=== PATIENT | male | born 1935 | race Caucasian/White ===

== ENCOUNTER 2017-11-25 16:46 | Inpatient (IN) | payer OTHER ==
[2017-11-25] MEDS ORDERED: SODIUM CHLORIDE 1,000 ML IV STA (17:05)
[2017-11-25] MEDS ORDERED: ACETAMINOPHEN 1000 MG/100 ML VIAL (NON FORMULARY) IVPB ONE (17:06)
[2017-11-25] MEDS ORDERED: PIPERACILLIN/TAZOB 4.5 GM/100 ML PRE-DOCKED IVPB ONE (17:20)
[2017-11-25] MEDS ORDERED: VANCOMYCIN 1,000 MG in DEXTROSE 5%-WATER - 250 ML IVPB ONE (17:20)
[2017-11-25] MEDS ORDERED: SODIUM CHLORIDE 500 ML IV STA (17:22)
[2017-11-25 17:40] LABS: BASO % 0.3 % (0-2.0); EOS % 0.4 % (0-4.5); HEMATOCRIT 25.2 % (35.4-49); HEMOGLOBIN 8.5 GM/dL (11.7-16.9); LYMPH % 10.8 % (8-40); MCHC 33.5 g/dl (32.0-35.9); MEAN CELL VOLUME 95.6 fl (80-96); MEAN PLT VOLUME 8.9 fl (7.5-11.1); MONO % 4.8 % (3.8-10.2); NEUT % 83.7 % (42.8-82.8); PLATELET COUNT 173 K/MM3 (134-434); RBC 2.64 M/mm3 (4.00-5.60); RDW 16.1 % (11.9-15.9); WHITE BLOOD COUNT 8.2 K/mm3 (4.0-10.0)
[2017-11-25] MEDS ORDERED: ACETAMINOPHEN INJECTION 100 ML IVPB ONE (17:45)
[2017-11-25] MEDS ORDERED: VANCOMYCIN 1 GRAM (PRE-DOCKED) 1,000 MG/250 ML BAG IVPB ONE (17:46)
--- NOTE | 2017-11-25 17:47 | PDOC ---
History of Present Illness - General Chief Complaint: SIRS, Suspected/Possible Stated Complaint: SEPSIS Time Seen by Provider: 11/25/17 17:01 History Source: Patient Exam Limitations: Clinical Condition, Dementia - History of Present Illness Initial Comments: 11/25/17 17:42 Patient is an 82M with history of dementia, HTN, HLD and BPH arriving from [facility] here today complaining of fever. Patient was recorded to have a fever of 103 degrees. He has a history of dementia with unknown baseline. At this moment , I am unable to obtain a history from him as he is simply repeating whatever I say. He did respond that his stomach hurt at one point, but I am unsure if this was a meaningful response. Past History - Past Medical History Allergies/Adverse Reactions: Allergies Allergy/AdvReac Type Severity Reaction Status Date / Time apricot Allergy Unknown Verified 11/25/17 16:53 peach Allergy Unknown Verified 11/25/17 16:53 phenobarbital Allergy Unknown Verified 11/25/17 16:53 NECTARINE TREE Allergy Unknown Uncoded 11/25/17 16:53 SUMME FRUITS Allergy Unknown Uncoded 11/25/17 16:53 COPD: No Dementia: Yes HTN: Yes Hypercholesterolemia: Yes - Suicide/Smoking/Psychosocial Hx Smoking History: Never smoked Hx Alcohol Use: No Drug/Substance Use Hx: No Substance Use Type: None Review of Systems - Review of Systems Able to Perform ROS?: No (2/2 clinical condition) *Physical Exam - Vital Signs Last Vital Signs Temp Pulse Resp BP Pulse Ox 94 H 22 196/100 98 11/25/17 16:48 11/25/17 16:48 11/25/17 16:48 11/25/17 16:48 - Physical Exam Comments: 11/25/17 17:47 GENERAL: Awake, alert, and fully oriented, difficult to redirect, confused, but still able to say name, year, location. Not able to form complaint HEAD: No signs of trauma, normocephalic, atraumatic EYES: PERRLA, EOMI, sclera anicteric, conjunctiva clear ENT: Auricles normal inspection, hearing grossly normal, nares patent, oropharynx clear without exudates. Dry mucosa NECK: Normal ROM, supple, no lymphadenopathy, JVD, or masses LUNGS: No distress, speaks full sentences, coarse breath sounds in left lung stewart HEART: Regular rate and rhythm, normal S1 and S2, no murmurs, rubs or gallops, peripheral pulses normal and equal bilaterally. ABDOMEN: Soft, nontender, normoactive bowel sounds. No guarding, no rebound. No masses EXTREMITIES: Normal inspection, Normal range of motion, no edema. No clubbing or cyanosis. NEUROLOGICAL: Cranial nerves II through XII grossly intact. Moves all extremities SKIN: Warm, Dry, normal turgor, no rashes or lesions noted. ED Treatment Course - LABORATORY CBC & Chemistry Diagram: 11/25/17 17:24 11/25/17 17:24 - ADDITIONAL ORDERS Additional order review: 11/25/17 17:24 RBC 2.64 L MCV 95.6 MCHC 33.5 RDW 16.1 H MPV 8.9 Neutrophils % 83.7 H Lymphocytes % 10.8 Monocytes % 4.8 Eosinophils % 0.4 Basophils % 0.3 - RADIOLOGY Radiology Studies Ordered: Category Date Time Status CHEST X-RAY PORTABLE* [RAD] Stat Radiology 11/25/17 17:05 Taken Medical Decision Making - Medical Decision Making 11/25/17 18:41 82M with history of dementia, HTN, HLD, and BPH here today with fever. Patient not tachycardic but on beta alen. Believe patient is septic, no obvious source at this time. Will initiate broad workup with septic order set. If no source of infection found will scan abdomen. Patient appears dry. Will treat empirically with 20cc/kg of fluid, vanc, zosyn. Unable to pass straight cath, bedside bladder scanner showed 160cc of fluid. Attempted insertion of straight cath resulted in multiple blood clots, coude placed, urine drained and coude removed. 11/25/17 18:49 Laboratory Tests 11/25/17 11/25/17 11/25/17 17:24 17:24 17:24 WBC 8.2 Hgb 8.5 L Hct 25.2 L Plt Count 173 VBG pH Sodium 146 H Chloride 113 H BUN 52 H Creatinine 1.8 H Creat Clearance w eGFR 36.13 Random Glucose 210 H Stool Occult Blood Negative 11/25/17 17:56 WBC Hgb Hct Plt Count VBG pH 7.44 H Sodium Chloride BUN Creatinine Creat Clearance w eGFR Random Glucose Stool Occult Blood CBC shows anemia, unknown baseline. CMP shows signs of dehydration. VBG shows no acidosis. 11/25/17 19:03 Trop detectable at 0.11. Suspect demand ischemia. CXR shows possible right middle lobe pneumonia. Signed out to Dr Whaley. Pending UA and official CXR read. *DC/Admit/Observation/Transfer Diagnosis at time of Disposition: Fever - Discharge Dispostion Condition at time of disposition: Stable - Referrals Referrals: Kassandra Urias [Primary Care Provider] - - Patient Instructions - Post Discharge Activity
[2017-11-25 17:55] LABS: INR 1.03 (0.82-1.09); PROTHROMBIN TIME (PATIENT) 11.6 SEC (9.98-11.88)
[2017-11-25 17:58] LABS: ACTIVATED PTT 31.1 SECONDS (26.9-34.4)
[2017-11-25 18:11] LABS: ALBUMIN 2.9 g/dl (3.4-5.0); ANION GAP 12 (8-16); BILIRUBIN,TOTAL 0.3 mg/dL (0.2-1.0); BLOOD UREA NITROGEN 52 mg/dL (7-18); CALCIUM 7.7 mg/dL (8.5-10.1); CHLORIDE 113 mmol/L (98-107); CO2 21 mmol/L (21-32); CREATININE 1.8 mg/dL (0.7-1.3); GLUCOSE,RANDOM 210 mg/dL (74-106); POTASSIUM 3.6 mmol/L (3.5-5.1); SGOT/AST 65 U/L (15-37); SGPT/ALT 32 U/L (12-78); SODIUM 146 mmol/L (136-145); TOT PROT 5.5 g/dl (6.4-8.2)
[2017-11-25 18:12] LABS: ALK PHOS 70 U/L (45-117)
[2017-11-25 18:33] LABS: VENOUS PC02 31.3 mmHg (38-52); VENOUS PH 7.44 (7.32-7.42); VENOUS PO2 36.6 mmHg (28-48)
--- NOTE | 2017-11-25 18:47 | PDOC ---
Attending Attestation - Resident Resident Name: Jared Lai - ED Attending Attestation I have performed the following: I have examined & evaluated the patient, The case was reviewed & discussed with the resident, I agree w/resident's findings & plan, Exceptions are as noted - HPI HPI: 11/25/17 18:43 Mr Artis Is an 82-year-old male with a history of dementia, hypertension, ? BPH. He presents emergency department from [facility] due to high fever. Patient is largely unable to give us a history. Per report of the facility: No diarrhea, ? abdominal pain, no vomiting - Physicial Exam PE: 11/25/17 18:44 GENERAL: The patient is rigoring, flushed cheeks. HEAD: Normal EYES: PERRLA, EOMI, sclera anicteric, conjunctiva clear. ENT: Ears normal, nares patent, oropharynx clear without exudates. Moist mucous membranes. NECK: Normal range of motion, supple without lymphadenopathy, JVD, or masses. LUNGS: Breath sounds equal, clear to auscultation bilaterally. No wheezes, and no crackles. HEART: Regular rate and rhythm, normal S1 and S2 without murmur ABDOMEN: Soft, nontender : testicular erythema, pt in a wet diaper EXTREMITIES: Normal range of motion, no edema NEUROLOGICAL: Pt is confused, moves all extremities SKIN: Warm, Dry, normal turgor, no rashes or lesions noted. - Medical Decision Making 11/25/17 18:45 82-year-old male presented to emergency department with an episode of high fever. Patient is septic. Source is unknown at this point. There is no cough. No abdominal tenderness. Different diagnosis: Urinary tract infection, pneumonia, intra-abdominal pathology, cellulitis? Will do: Labs Chest x-ray Lactic acid IV fluids Antipyretics Consider CT of the abdomen and pelvis
[2017-11-25 18:59] LABS: URINE APPEARANCE CLOUDY; URINE BILIRUBIN NEGATIVE (NEGATIVE); URINE BLOOD 3+ (NEGATIVE); URINE COLOR RED; URINE GLUCOSE (UA) 1+ (NEGATIVE); URINE KETONE NEGATIVE (NEGATIVE); URINE LEUK ESTERASE NEGATIVE (NEGATIVE); URINE NITRITE NEGATIVE (NEGATIVE); URINE UROBILINOGEN NEGATIVE mg/dL (0.2-1.0)
[2017-11-25 19:00] LABS: URINE PROTEIN 2+ (NEGATIVE)
--- NOTE | 2017-11-25 19:02 | PDOC ---
*Physical Exam - Vital Signs Last Vital Signs Temp Pulse Resp BP Pulse Ox 103.8 F H 95 H 22 159/66 98 11/25/17 17:12 11/25/17 17:12 11/25/17 17:12 11/25/17 17:12 11/25/17 17:12 - Physical Exam Comments: 11/25/17 19:21 General Appearance: Nourished. No Apparent Distress HEENT: No Pharyngeal Erythema, Tonsillar Exudate, Tonsillar Erythema Neck: No Cervical Lymphadenopathy Respiratory/Chest: Lungs Clear, Bilateral Expiratory Wheezing Auscultated on exam. No Crackles, Rales, Rhonchi, Cardiovascular: Regular Rhythm, Regular Rate. No JVD, Murmur, Gallops, Rubs Gastrointestinal/Abdominal: Normal Bowel Sounds, Soft. No Guarding, Rebound, Tenderness Musculoskeletal: No CVA Tenderness Extremity: Normal Capillary Refill Integumentary: Normal Color, Dry, Warm Neurologic: Fully Oriented, Alert, Normal Mood/Affect, Normal Response, ED Treatment Course - LABORATORY CBC & Chemistry Diagram: 11/25/17 17:24 11/25/17 17:24 - ADDITIONAL ORDERS Additional order review: Laboratory Results 11/25/17 11/25/17 11/25/17 18:32 17:56 17:24 PT with INR INR PTT (Actin FS) VBG pH 7.44 H POC VBG pCO2 31.3 L POC VBG pO2 36.6 Mixed VBG HCO3 21.1 Sodium Potassium Chloride Carbon Dioxide Anion Gap BUN Creatinine Creat Clearance w eGFR Random Glucose Lactic Acid Calcium Total Bilirubin AST ALT Alkaline Phosphatase Troponin I Total Protein Albumin Urine Color Red Urine Appearance Cloudy Urine pH 6.0 Ur Specific Freedom 1.014 Urine Protein 2+ H Urine Glucose (UA) 1+ H Urine Ketones Negative Urine Blood 3+ H Urine Nitrite Negative Urine Bilirubin Negative Urine Urobilinogen Negative Ur Leukocyte Esterase Negative Stool Occult Blood Negative 11/25/17 11/25/17 11/25/17 17:24 17:24 17:24 PT with INR INR PTT (Actin FS) VBG pH POC VBG pCO2 POC VBG pO2 Mixed VBG HCO3 Sodium 146 H Potassium 3.6 Chloride 113 H Carbon Dioxide 21 Anion Gap 12 BUN 52 H Creatinine 1.8 H Creat Clearance w eGFR 36.13 Random Glucose 210 H Lactic Acid 1.7 Calcium 7.7 L Total Bilirubin 0.3 AST 65 H ALT 32 Alkaline Phosphatase 70 Troponin I 0.11 H Total Protein 5.5 L Albumin 2.9 L Urine Color Urine Appearance Urine pH Ur Specific Freedom Urine Protein Urine Glucose (UA) Urine Ketones Urine Blood Urine Nitrite Urine Bilirubin Urine Urobilinogen Ur Leukocyte Esterase Stool Occult Blood 11/25/17 17:24 PT with INR 11.60 INR 1.03 PTT (Actin FS) 31.1 VBG pH POC VBG pCO2 POC VBG pO2 Mixed VBG HCO3 Sodium Potassium Chloride Carbon Dioxide Anion Gap BUN Creatinine Creat Clearance w eGFR Random Glucose Lactic Acid Calcium Total Bilirubin AST ALT Alkaline Phosphatase Troponin I Total Protein Albumin Urine Color Urine Appearance Urine pH Ur Specific Freedom Urine Protein Urine Glucose (UA) Urine Ketones Urine Blood Urine Nitrite Urine Bilirubin Urine Urobilinogen Ur Leukocyte Esterase Stool Occult Blood 11/25/17 17:24 RBC 2.64 L MCV 95.6 MCHC 33.5 RDW 16.1 H MPV 8.9 Neutrophils % 83.7 H Lymphocytes % 10.8 Monocytes % 4.8 Eosinophils % 0.4 Basophils % 0.3 - Medications Given in the ED: ED Medications Discontinued Medications Generic Name Dose Route Start Last Admin Trade Name Freq PRN Reason Stop Dose Admin Acetaminophen 1,000 mg 11/25/17 17:06 11/25/17 17:54 Ofirmev Injection - IVPB 11/25/17 17:07 1,000 mg ONCE ONE Administration Sodium Chloride 1,000 mls @ 1,000 mls/hr 11/25/17 17:05 11/25/17 17:54 Normal Saline - IV 11/25/17 18:04 1,000 mls/hr ASDIR STA Administration Sodium Chloride 500 mls @ 500 mls/hr 11/25/17 17:22 11/25/17 18:10 Normal Saline - IV 11/25/17 18:21 500 mls/hr ASDIR STA Administration 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 - 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: The patient 82 year old male who presents from [facility] for evaluation of fever. The patient was initially worked up as a septic work up and received Vanc and Zosyn. There appears to be a possible right middle lobe infiltrate on chest plain film as preliminarily read by ER physician. The patient is pending admission. Medical Decision Making - Medical Decision Making 11/25/17 19:24 We discussed the case with Dr. Medrano who accepted the patient for admission. Given the patient's high fever and lab results, we will start the patient on Tamiflu here in the ED. *DC/Admit/Observation/Transfer Diagnosis at time of Disposition: Fever Qualifiers: Fever type: unspecified Qualified Code(s): R50.9 - Fever, unspecified - Discharge Dispostion Condition at time of disposition: Stable Admit: Yes - Referrals Referrals: Kassandra Urias [Primary Care Provider] - - Patient Instructions - Post Discharge Activity
[2017-11-25 19:03] LABS: URINE BACTERIA RARE /hpf (NONE SEEN)
[2017-11-25] MEDS ORDERED: OSELTAMIVIR PHOSPHATE 75 MG CAPSULE PO ONE (19:14)
[2017-11-25] MEDS ORDERED: OSELTAMIVIR PHOSPHATE 30 MG CAPSULE PO ONE (19:15)
[2017-11-25] MEDS ORDERED: ACETAMINOPHEN 325 MG TABLET (FP) PO PRN (19:27)
[2017-11-25] MEDS ORDERED: ALBUTEROL SO4 2.5/IPRATROPIUM 0.5 INH SOL 3 ML VIAL.NEB. NEB PRN (19:28)
--- NOTE | 2017-11-25 19:36 | HP ---
Admitting History and Physical - Admission Chief Complaint: fever History of Present Illness: Patient is an 82M with history of dementia, HTN, HLD and BPH sent from [facility] due to 2 days of fever, today to 103. Per staff at [facility] ++ moist cough and more withdrawn. Patient has hx of dementia and is unreliable historian, and unable to provide any hx or complaint. 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: Dementia - Smoking History Smoking history: Never smoked - Alcohol/Substance Use Hx Alcohol Use: No - Social History Usual Living Arrangement: Yes: Assisted Living ADL: Support Services History of Recent Travel: No Home Medications - Allergies Allergies/Adverse Reactions: Allergies Allergy/AdvReac Type Severity Reaction Status Date / Time apricot Allergy Unknown Verified 11/25/17 16:53 peach Allergy Unknown Verified 11/25/17 16:53 phenobarbital Allergy Unknown Verified 11/25/17 16:53 NECTARINE TREE Allergy Unknown Uncoded 11/25/17 16:53 SUMME FRUITS Allergy Unknown Uncoded 11/25/17 16:53 Review of Systems - Review of Systems Constitutional: reports: Chills, Fever, Lethargy, Loss of Appetite, Weakness. denies: Unintentional Wgt. Loss Eyes: reports: No Symptoms HENT: reports: Difficult Swallowing Cardiovascular: denies: Chest Pain, Edema, Palpitations Respiratory: reports: Cough, SOB Gastrointestinal: reports: Abdominal Pain (at one point c/o abd pain but inconsistent) Breasts: reports: No Symptoms Reported Musculoskeletal: reports: No Symptoms Neurological: reports: Pre-Existing Deficit Physical Examination Vital Signs: Vital Signs Temperature 103.8 F H 11/25/17 17:12 Pulse Rate 95 H 11/25/17 17:12 Respiratory Rate 22 11/25/17 17:12 Blood Pressure 159/66 11/25/17 17:12 O2 Sat by Pulse Oximetry (%) 98 11/25/17 17:12 Findings/Remarks: lethargic Labs: CBC, BMP 11/25/17 17:24 11/25/17 17:24 Problem List - Problems (1) Acute tracheobronchitis Assessment/Plan: cover for influenza cover for HAP request ID Code(s): J20.9 - ACUTE BRONCHITIS, UNSPECIFIED (2) Dementia Code(s): F03.90 - UNSPECIFIED DEMENTIA WITHOUT BEHAVIORAL DISTURBANCE (3) HTN (hypertension) Code(s): I10 - ESSENTIAL (PRIMARY) HYPERTENSION (4) HLD (hyperlipidemia) Code(s): E78.5 - HYPERLIPIDEMIA, UNSPECIFIED (5) BPH (benign prostatic hyperplasia) Code(s): N40.0 - BENIGN PROSTATIC HYPERPLASIA WITHOUT LOWER URINRY TRACT SYMP (6) CKD (chronic kidney disease) stage 3, GFR 30-59 ml/min Code(s): N18.3 - CHRONIC KIDNEY DISEASE, STAGE 3 (MODERATE)
[2017-11-25] MEDS ORDERED: PIPERACILLIN/TAZOB 4.5 GM 4.5 GM/100 ML BAG IVPB ONE (19:37)
[2017-11-25] MEDS: DEXTROSE 5%-0.45% SALINE 1,000 ML IV SCH (19:42)
[2017-11-25] MEDS ORDERED: IBUPROFEN 800 MG/8 ML IJ IVPB ONE ×2 (20:06→20:07)
[2017-11-25] MEDS: ALBUTEROL SO4 2.5/IPRATROPIUM 0.5 INH SOL 3 ML VIAL.NEB. NEB SCH (20:33)
[2017-11-25] MEDS: DOCUSATE SODIUM 100 MG CAPSULE (FP) PO SCH (23:04)
[2017-11-25] MEDS: OSELTAMIVIR PHOSPHATE 30 MG CAPSULE PO SCH (23:05)
[2017-11-25 23:17] VITALS: BMI 25.0
[2017-11-26] MEDS ORDERED: FUROSEMIDE 40 MG/4 ML INJECTABLE VIAL IVPUSH ONE (01:43)
[2017-11-26] MEDS ORDERED: morphine SULFATE 4 MG/ML VIAL IVPUSH ONE (01:44)
[2017-11-26] MEDS ORDERED: morphine SULFATE 4 MG/ML VIAL ONE (01:45)
[2017-11-26] MEDS ORDERED: FUROSEMIDE 40 MG/4 ML INJECTABLE VIAL ONE (01:46)
[2017-11-26 02:12] LABS: ARTERIAL BLD GAS O2 SATURATION 92.9 % (90-98.9); ARTERIAL BLOOD GAS PCO2 43.2 mmHg (35-45); ARTERIAL BLOOD GAS PO2 81.1 mmHg (68-100); ARTERIAL BLOOD GAS pH 7.27 (7.35-7.45)
[2017-11-26 02:22] LABS: ALLENS TEST POSITIVE
[2017-11-26] MEDS ORDERED: METOPROLOL TARTRATE 5 MG/5 ML VIAL IVPUSH ONE ×2 (03:23→04:45)
[2017-11-26] MEDS ORDERED: METOPROLOL TARTRATE 5 MG/5 ML VIAL ONE (03:36)
[2017-11-26] MEDS ORDERED: dilTIAZem HCL 50 MG/10 ML - 10 ML VIAL IVPUSH ONE (05:11)
[2017-11-26] MEDS ORDERED: ACETAMINOPHEN 1000 MG/100 ML VIAL (NON FORMULARY) IVPB ONE (05:23)
--- NOTE | 2017-11-26 06:25 | RAPID ---
Physical Examination Vital Signs: Vital Signs Temperature 99.2 F 11/26/17 05:34 Pulse Rate 142 H 11/26/17 05:34 Respiratory Rate 22 11/26/17 05:34 Blood Pressure 158/77 11/26/17 05:34 O2 Sat by Pulse Oximetry (%) 95 11/26/17 02:15 Constitutional: Yes: Moderate Distress (lethargic), Other HENT: Yes: WNL Neck: Yes: Supple Cardiovascular: Yes: Pulse Irregular Respiratory: Yes: Cough, Poor Air Entry Neurological: Yes: Confusion, Lethargy Labs: CBC, BMP 11/25/17 17:24 11/25/17 17:24 Rapid Response - Rapid Response Assessment: Rapid response called as pt desat to 78-79 while on 4L NC 02. At time, BP holding with rapid HR in 130-140s. HOB elevated, pt started on non-rebreather. Pt given morphine 2mg x 1, lasix 40mg IVP x 1. Chest PT performed. After, pt sat increased to 93-94. Respiratory at bedside, with BiPAP ordered for standby. stat EKG reveals afib with RVR, rate ~150. Pt transferred to telemetry for close monitoring. Not candidate for ICU as DNR/DNI, relatively hemodynamically stable Will continue to follow Thank you Anayeli Ariza MD PGY-1 Night team
[2017-11-26 07:04] LABS: HEMATOCRIT 26.7 % (35.4-49); HEMOGLOBIN 8.9 GM/dL (11.7-16.9); MCH 31.7 pg (25.7-33.7); MCHC 33.1 g/dl (32.0-35.9); MEAN CELL VOLUME 95.6 fl (80-96); MEAN PLT VOLUME 8.9 fl (7.5-11.1); PLATELET COUNT 152 K/MM3 (134-434); RDW 16.5 % (11.9-15.9); WHITE BLOOD COUNT 4.5 K/mm3 (4.0-10.0)
[2017-11-26 07:06] LABS: ANION GAP 14 (8-16); BLOOD UREA NITROGEN 46 mg/dL (7-18); CALCIUM 7.6 mg/dL (8.5-10.1); CHLORIDE 113 mmol/L (98-107); CO2 22 mmol/L (21-32); GLUCOSE,RANDOM 203 mg/dL (74-106); SODIUM 149 mmol/L (136-145)
[2017-11-26] MEDS: ALBUTEROL SO4 2.5/IPRATROPIUM 0.5 INH SOL 3 ML VIAL.NEB. NEB SCH ×4 (07:20→20:32)
--- NOTE | 2017-11-26 09:01 | PN ---
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, Physician Chief Complaint: ID Full note dictated Poorly responsive tachypneic - Current Medication List Current Medications: Active Medications Acetaminophen (Tylenol -) 650 mg PO Q4H PRN PRN Reason: fever Albuterol/Ipratropium (Duoneb -) 1 amp NEB RQID [facility] Last Admin: 11/26/17 07:20 Dose: 1 amp Albuterol/Ipratropium (Duoneb -) 1 amp NEB Q4H PRN PRN Reason: SHORTNESS OF BREATH Last Admin: 11/26/17 02:16 Dose: 1 amp Docusate Sodium (Colace -) 100 mg PO BID [facility] Last Admin: 11/25/17 23:04 Dose: Not Given Dextrose/Sodium Chloride (D5-1/2ns -) 1,000 mls @ 125 mls/hr IV ASDIR [facility] Last Admin: 11/25/17 19:42 Dose: 125 mls/hr Oseltamivir Phosphate (Tamiflu -) 30 mg PO BID [facility] Stop: 11/30/17 21:59 Last Admin: 11/25/17 23:05 Dose: Not Given Polyethylene Glycol (Miralax (For Daily Use) -) 17 gm PO DAILY [facility] - Objective Vital Signs: Vital Signs Temperature 99.2 F 11/26/17 05:34 Pulse Rate 142 H 11/26/17 05:34 Respiratory Rate 22 11/26/17 05:34 Blood Pressure 158/77 11/26/17 05:34 O2 Sat by Pulse Oximetry (%) 95 11/26/17 02:15 Constitutional: Yes: Moderate Distress Cardiovascular: Yes: Tachycardia, S1, S2. No: Murmur Respiratory: Yes: WNL, Regular, CTA Bilaterally Gastrointestinal: Yes: Soft. No: Tenderness, Tenderness, Epigastrium Edema: Yes Labs: CBC, BMP 11/26/17 05:35 11/26/17 05:35 INR, PTT INR 1.03 (0.82-1.09) 11/25/17 17:24 Problem List - Problems (1) Influenza Code(s): J11.1 - FLU DUE TO UNIDENTIFIED INFLUENZA VIRUS W OTH RESP MANIFEST (2) Acute respiratory failure Code(s): J96.00 - ACUTE RESPIRATORY FAILURE, UNSP W HYPOXIA OR HYPERCAPNIA (3) Pneumonia Code(s): J18.9 - PNEUMONIA, UNSPECIFIED ORGANISM Assessment/Plan Laboratory Tests 11/25/17 11/25/17 11/26/17 17:24 18:32 01:55 WBC Hgb Hct Plt Count INR 1.03 ABG pH 7.27 L ABG pO2 at Pt Temp 81.1 Oxygen Flow Rate 100% BUN Creatinine Urine RBC (Auto) 4300 11/26/17 11/26/17 05:35 05:35 WBC 4.5 D Hgb 8.9 L Hct 26.7 L Plt Count 152 INR ABG pH ABG pO2 at Pt Temp Oxygen Flow Rate BUN 46 H Creatinine 2.0 H Urine RBC (Auto) Assessment Suspect influenza Pneumonia possible Hematuria traumatic Sepsis syndrome secondary influenza Plan Cultures Influenza screen Repeat chest xray Ceftriaxone Patrick RINALDI
--- NOTE | 2017-11-26 09:40 | CONS ---
INFECTIOUS DISEASE CONSULTATION DATE OF CONSULTATION: DATE OF DICTATION: 11/26/2017 HISTORY OF PRESENT ILLNESS: This is an 82-year-old male with a history of dementia, sent from the residential healthcare facility with a 2-day history of fever to 103. Apparently, several cases of influenza have been documented from the same facility including another patient who was admitted earlier last night. The patient was noted to be in acute respiratory distress and placed on a BiPAP mask. I am asked to see him regarding antibiotic treatment. At the current time, he is poorly responsive and only opens his eyes minimally to verbal stimuli. PAST MEDICAL HISTORY: Includes BPH, hypertension, dementia. CURRENT MEDICATIONS: DuoNeb, intravenous fluids, and Tamiflu. ALLERGIES: PHENOBARBITAL. SOCIAL HISTORY: Unobtainable. FAMILY HISTORY: Unobtainable. REVIEW OF SYSTEMS: Respiratory: Shortness of breath on a BiPAP mask. Recent cough noted. Cardiac: No history of chest pain, palpitations, syncope. Gastrointestinal: No abdominal pain, nausea, vomiting, diarrhea. Genitourinary: History of BPH. Hematuria noted on the admitting urinalysis. PHYSICAL EXAMINATION: General: Revealed an elderly male in respiratory distress. Vital Signs: Temperature maximum 103.8, currently 99.2. Pulse 142, blood pressure 158/77, respirations 20. Lungs: With diminished breath sounds, clear anteriorly. Heart: S1, S2. Tachycardic. Abdomen: Soft, nontender, without organomegaly. Extremities: With trace peripheral edema. DIAGNOSTIC DATA: Urinalysis with 4300 red cells. White count 4.5, hemoglobin 8.9, platelets of 152. ABG showed 7.27, 43, 81 on 100% oxygen. BUN 52, creatinine 1.3. Liver enzymes within normal limit. Troponin 0.29. Chest x-ray shows possible lower lobe infiltrate. ASSESSMENT: Suspected influenza. Blood cultures negative this morning. We will treat for a possible superinfection in the lung for pneumococcus, Staphylococcus aureus with ceftriaxone 2 g daily. Continue oseltamivir. Droplet precautions. Influenza screening. ALTAF LANG M.D. XAVIER/[id number]
--- NOTE | 2017-11-26 10:05 | PN ---
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 (short form) - Note 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: 82 y/o male admitted for fever x 2 days/cough. Pt found lying in bed with Bipap mask in place. Pt did not respond to questions but slightly opened eyes. Vital Signs Period Temp Pulse Resp BP Sys/Cannon Pulse Ox Last 24 Hr 99.2 F-103.8 F 11-142 20-26 125-196/57-100 94-98 CBC, BMP 11/26/17 05:35 11/26/17 05:35 HEENT- Normocephalic Neck-Supple Lungs- CTAB Heart- S1/S2 Abd- pos BS, soft, NT Ext- No LE edema Active Medications Acetaminophen (Tylenol -) 650 mg PO Q4H PRN PRN Reason: fever Albuterol/Ipratropium (Duoneb -) 1 amp NEB RQID [facility] Last Admin: 11/26/17 07:20 Dose: 1 amp Albuterol/Ipratropium (Duoneb -) 1 amp NEB Q4H PRN PRN Reason: SHORTNESS OF BREATH Last Admin: 11/26/17 02:16 Dose: 1 amp Docusate Sodium (Colace -) 100 mg PO BID [facility] Last Admin: 11/25/17 23:04 Dose: Not Given Dextrose/Sodium Chloride (D5-1/2ns -) 1,000 mls @ 125 mls/hr IV ASDIR [facility] Last Admin: 11/25/17 19:42 Dose: 125 mls/hr Ceftriaxone Sodium 2 gm/ (Dextrose) 100 mls @ 200 mls/hr IVPB DAILY [facility] Metoprolol Succinate (Toprol Xl -) 50 mg PO BID [facility] Oseltamivir Phosphate (Tamiflu -) 30 mg PO BID [facility] Stop: 11/30/17 21:59 Last Admin: 11/25/17 23:05 Dose: Not Given Polyethylene Glycol (Miralax (For Daily Use) -) 17 gm PO DAILY [facility] #Acute Tracheobronchitis Continue Ceftriaxone IVPB #Influenza Continue Tamiflu 30 mg BID # Acute/ Chronic Kidney Disease Continue IV fluids #HTN / Tachycardia Continue Metoprolol 50 mg BID Rate improving Problem List - Problems (1) Acute tracheobronchitis Assessment/Plan: cover for influenza cover for HAP request ID Code(s): J20.9 - ACUTE BRONCHITIS, UNSPECIFIED (2) Dementia Code(s): F03.90 - UNSPECIFIED DEMENTIA WITHOUT BEHAVIORAL DISTURBANCE (3) HTN (hypertension) Code(s): I10 - ESSENTIAL (PRIMARY) HYPERTENSION (4) HLD (hyperlipidemia) Code(s): E78.5 - HYPERLIPIDEMIA, UNSPECIFIED (5) BPH (benign prostatic hyperplasia) Code(s): N40.0 - BENIGN PROSTATIC HYPERPLASIA WITHOUT LOWER URINRY TRACT SYMP (6) CKD (chronic kidney disease) stage 3, GFR 30-59 ml/min Code(s): N18.3 - CHRONIC KIDNEY DISEASE, STAGE 3 (MODERATE)
[2017-11-26] MEDS ORDERED: PT OWN MED DRAWER 7, Y5N ONE ×3 (10:51→14:41)
[2017-11-26] MEDS: CEFTRIAXONE 2 GM in DEXTROSE 5%-WATER - 100 ML IVPB SCH (11:03)
[2017-11-26] MEDS: DOCUSATE SODIUM 100 MG CAPSULE (FP) PO SCH ×2 (11:03→21:30)
[2017-11-26] MEDS: OSELTAMIVIR PHOSPHATE 30 MG CAPSULE PO SCH ×2 (11:15→21:30)
[2017-11-26] MEDS: POLYETHYLENE GLYCOL 3350 119 GM BTL PO SCH (11:16)
--- NOTE | 2017-11-26 11:21 | CON.CARD ---
Cardiology Consult (text) - Consultation Consultation Note: cc: sent from [facility] for fever hpi: 82 m hx dementia, htn, hld, ckd sent from [facility] for fever. Pt with dementia , unable to give hx, hx from charts. Being treated for URI/flu. Overnight with new onset afib with rvr. pmh: per hpi psh: unknown social: no tob fam: unknown ros: unable to obtain 2/2 dementia meds: Home Medications Medication Instructions Recorded Amlodipine Besylate 5 mg PO 11/25/17 Ascorbic Acid [Vitamin C -] 500 mg PO DAILY 11/25/17 Atorvastatin Ca [Lipitor] 40 mg PO HS 11/25/17 Cholecalciferol (Vitamin D3) 50,000 unit PO DAILY 11/25/17 [Vitamin D3] Citalopram Hydrobromide 10 mg PO DAILY 11/25/17 [Citalopram HBr] Clonidine HCl 0.3 mg PO HS 11/25/17 Hydralazine HCl 25 mg PO TID 11/25/17 Losartan Potassium 50 mg PO DAILY 11/25/17 Metoprolol Succinate [Toprol Xl] 100 mg PO DAILY 11/25/17 Nystatin Powder [Nystop Topical 30 gm TP DAILY PRN 11/25/17 Powder -] Olanzapine 5 mg PO DAILY 11/25/17 Oseltamivir Phosphate 30 mg PO DAILY MDD 14 days 11/25/17 Polyethylene Glycol 3350 1,700 gm PO DAILY 11/25/17 [Laxaclear] Terazosin HCl 5 mg PO HS 11/25/17 pe: Vital Signs Period Temp Pulse Resp BP Sys/Cannon Pulse Ox Last 24 Hr 99.2 F-103.8 F 11-142 20-26 125-196/57-100 94-98 nad no jvd on bipap coarse bs bl, weak eff lethargic no jaundice diaphoresis pos dp pt abd nd pos bs rrr s1s2 no mrg no le e/c/c Laboratory Last Values WBC 4.5 K/mm3 (4.0-10.0) D 11/26/17 05:35 RBC 2.80 M/mm3 (4.00-5.60) L 11/26/17 05:35 Hgb 8.9 GM/dL (11.7-16.9) L 11/26/17 05:35 Hct 26.7 % (35.4-49) L 11/26/17 05:35 MCV 95.6 fl (80-96) 11/26/17 05:35 MCH 31.7 pg (25.7-33.7) 11/26/17 05:35 MCHC 33.1 g/dl (32.0-35.9) 11/26/17 05:35 RDW 16.5 % (11.9-15.9) H 11/26/17 05:35 Plt Count 152 K/MM3 (134-434) 11/26/17 05:35 MPV 8.9 fl (7.5-11.1) 11/26/17 05:35 Neutrophils % 83.7 % (42.8-82.8) H 11/25/17 17:24 Lymphocytes % 10.8 % (8-40) 11/25/17 17:24 Monocytes % 4.8 % (3.8-10.2) 11/25/17 17:24 Eosinophils % 0.4 % (0-4.5) 11/25/17 17:24 Basophils % 0.3 % (0-2.0) 11/25/17 17:24 PT with INR 11.60 SEC (9.98-11.88) 11/25/17 17:24 INR 1.03 (0.82-1.09) 11/25/17 17:24 PTT (Actin FS) 31.1 SECONDS (26.9-34.4) 11/25/17 17:24 Anticoagulation Therapy No Result Required. 11/26/17 01:55 Puncture Site Right radial 11/26/17 01:55 ABG pH 7.27 (7.35-7.45) L 11/26/17 01:55 ABG pCO2 at Pt Temp 43.2 mmHg (35-45) 11/26/17 01:55 ABG pO2 at Pt Temp 81.1 mmHg (68-100) 11/26/17 01:55 ABG HCO3 19.2 meq/L (22-26) L 11/26/17 01:55 ABG O2 Sat (Measured) 92.9 % (90-98.9) 11/26/17 01:55 ABG O2 Content 15.0 % vol (15-22) 11/26/17 01:55 ABG Base Excess -7.0 meq/l (-2-2) L 11/26/17 01:55 Shadi Test Positive 11/26/17 01:55 VBG pH 7.44 (7.32-7.42) H 11/25/17 17:56 POC VBG pCO2 31.3 mmHg (38-52) L 11/25/17 17:56 POC VBG pO2 36.6 mmHg (28-48) 11/25/17 17:56 Mixed VBG HCO3 21.1 meq/L (19-25) 11/25/17 17:56 O2 Delivery Device No Result Required. 11/26/17 01:55 Oxygen Flow Rate 100% 11/26/17 01:55 Vent Mode No Result Required. 11/26/17 01:55 Vent Rate No Result Required. 11/26/17 01:55 Mechanical Rate No Result Required. 11/26/17 01:55 Pressure Support Vent No Result Required. 11/26/17 01:55 Sodium 149 mmol/L (136-145) H 11/26/17 05:35 Potassium 4.0 mmol/L (3.5-5.1) 11/26/17 05:35 Chloride 113 mmol/L (98-107) H 11/26/17 05:35 Carbon Dioxide 22 mmol/L (21-32) 11/26/17 05:35 Anion Gap 14 (8-16) 11/26/17 05:35 BUN 46 mg/dL (7-18) H 11/26/17 05:35 Creatinine 2.0 mg/dL (0.7-1.3) H 11/26/17 05:35 Creat Clearance w eGFR 36.13 (>60) 11/25/17 17:24 Random Glucose 203 mg/dL (74-106) H 11/26/17 05:35 Lactic Acid 1.7 mmol/L (0.0-2.0) 11/25/17 17:24 Calcium 7.6 mg/dL (8.5-10.1) L 11/26/17 05:35 Total Bilirubin 0.3 mg/dL (0.2-1.0) 11/25/17 17:24 AST 65 U/L (15-37) H 11/25/17 17:24 ALT 32 U/L (12-78) 11/25/17 17:24 Alkaline Phosphatase 70 U/L (45-117) 11/25/17 17:24 Troponin I 0.29 ng/ml (0.00-0.05) H D 11/26/17 05:35 Total Protein 5.5 g/dl (6.4-8.2) L 11/25/17 17:24 Albumin 2.9 g/dl (3.4-5.0) L 11/25/17 17:24 Urine Color Red 11/25/17 18:32 Urine Appearance Cloudy 11/25/17 18:32 Urine pH 6.0 (5.0-8.0) 11/25/17 18:32 Ur Specific [place] 1.014 (1.001-1.035) 11/25/17 18:32 Urine Protein 2+ (NEGATIVE) H 11/25/17 18:32 Urine Glucose (UA) 1+ (NEGATIVE) H 11/25/17 18:32 Urine Ketones Negative (NEGATIVE) 11/25/17 18:32 Urine Blood 3+ (NEGATIVE) H 11/25/17 18:32 Urine Nitrite Negative (NEGATIVE) 11/25/17 18:32 Urine Bilirubin Negative (NEGATIVE) 11/25/17 18:32 Urine Urobilinogen Negative mg/dL (0.2-1.0) 11/25/17 18:32 Ur Leukocyte Esterase Negative (NEGATIVE) 11/25/17 18:32 Urine WBC (Auto) None /hpf (3-5) 11/25/17 18:32 Urine RBC (Auto) 4300 /hpf (0-3) 11/25/17 18:32 Urine Bacteria Rare /hpf (NONE SEEN) 11/25/17 18:32 Stool Occult Blood Negative (NEGATIVE) 11/25/17 17:24 ecg: afib rvr, nl qtc, no ischemic changes cxr: r infiltrate tele: sr now, afib with rvr overnight a/p: 82 m hx dementia, htn, hld, ckd sent [facility]. pafib: -in sr now -will start toprol 50 bid in case reverts to afib -chadsvasc warrants ac but pt with anemia here (unknown baseline) and dementia so unclear if he is good candidate for ac -echo pending htn: -will start toprol and monitor hld: -cont home statin ckd: -monitor cr trend uri, flu: -abx per PMD trop elevation: -borderline trop elevation, does not appear to be acs, cont to trend -check echo
[2017-11-26] MEDS ORDERED: METOPROLOL TARTRATE 5 MG/5 ML VIAL IVPUSH PRN (11:48)
--- NOTE | 2017-11-26 16:35 | EKG ---
Test Reason : Blood Pressure : / mmHG Vent. Rate : 139 BPM Atrial Rate : 163 BPM P-R Int : 000 ms QRS Dur : 090 ms QT Int : 324 ms P-R-T Axes : 000 -47 042 degrees QTc Int : 493 ms ATRIAL FIBRILLATION WITH RAPID VENTRICULAR RESPONSE LEFT AXIS DEVIATION NONSPECIFIC ST ABNORMALITY ABNORMAL ECG WHEN COMPARED WITH ECG OF 26-NOV-2017 01:54, T WAVE INVERSION NO LONGER EVIDENT IN LATERAL LEADS Confirmed by SAIGE RINALDI, SUZI ([id number]) on 11/26/2017 4:35:04 PM Referred By: Confirmed By:SUZI MOULTON MD
--- NOTE | 2017-11-26 16:39 | EKG ---
Test Reason : Blood Pressure : / mmHG Vent. Rate : 153 BPM Atrial Rate : 141 BPM P-R Int : 000 ms QRS Dur : 092 ms QT Int : 308 ms P-R-T Axes : 000 -32 067 degrees QTc Int : 491 ms POOR DATA QUALITY, INTERPRETATION MAY BE ADVERSELY AFFECTED ATRIAL FIBRILLATION WITH RAPID VENTRICULAR RESPONSE LEFT AXIS DEVIATION NONSPECIFIC ST ABNORMALITY ABNORMAL ECG NO PREVIOUS ECGS AVAILABLE Confirmed by SAIGE RINALDI, SUZI ([id number]) on 11/26/2017 4:38:51 PM Referred By: Confirmed By:SUZI MOULTON MD
[2017-11-26] MEDS: LABETALOL HCL 5 MG/1 ML (100MG/20 ML VIAL) IVPUSH PRN (21:17)
[2017-11-26] MEDS: DEXTROSE 5%-0.45% SALINE 1,000 ML IV SCH (21:28)
[2017-11-26] MEDS: ACETAMINOPHEN 650 MG SUPP.RECT PR PRN (23:11)
[2017-11-27] MEDS: LABETALOL HCL 5 MG/1 ML (100MG/20 ML VIAL) IVPUSH PRN ×3 (01:52→18:04)
[2017-11-27] MEDS: ACETAMINOPHEN 650 MG SUPP.RECT PR PRN ×2 (07:17→15:00)
[2017-11-27] MEDS: ALBUTEROL SO4 2.5/IPRATROPIUM 0.5 INH SOL 3 ML VIAL.NEB. NEB SCH ×4 (07:38→20:50)
[2017-11-27 08:41] LABS: HEMATOCRIT 23.9 % (35.4-49); HEMOGLOBIN 8.1 GM/dL (11.7-16.9); MCH 31.9 pg (25.7-33.7); MCHC 33.8 g/dl (32.0-35.9); MEAN CELL VOLUME 94.3 fl (80-96); MEAN PLT VOLUME 8.9 fl (7.5-11.1); PLATELET COUNT 162 K/MM3 (134-434); RBC 2.54 M/mm3 (4.00-5.60); RDW 15.8 % (11.9-15.9); WHITE BLOOD COUNT 10.3 K/mm3 (4.0-10.0)
[2017-11-27 09:04] LABS: ANION GAP 14 (8-16); BLOOD UREA NITROGEN 51 mg/dL (7-18); CHLORIDE 118 mmol/L (98-107); CO2 22 mmol/L (21-32); GLUCOSE,RANDOM 124 mg/dL (74-106); POTASSIUM 3.1 mmol/L (3.5-5.1); SODIUM 154 mmol/L (136-145)
--- NOTE | 2017-11-27 11:05 | PN ---
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 (short form) - Note 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: s: awake, not comunicating, not taking po meds, on bipap still o: Vital Signs Period Temp Pulse Resp BP Sys/Cannon Pulse Ox Last 24 Hr 100.4 F-102.5 F 66-99 22-24 163-194/74-105 97-100 nad no jvd on bipap coarse bs bl, weak eff lethargic no jaundice diaphoresis abd nd pos bs rrr s1s2 no mrg no le e/c/c Current Medications Generic Name Dose Route Start Last Admin Trade Name Freq PRN Reason Stop Dose Admin Acetaminophen 650 mg 11/25/17 19:27 Tylenol - PO Q4H PRN fever Acetaminophen 650 mg 11/26/17 15:35 11/27/17 07:17 Tylenol Suppository - [place] 650 mg Q4H PRN Administration FEVER Albuterol/Ipratropium 1 amp 11/25/17 20:00 11/27/17 07:38 Duoneb - NEB 1 amp RQID SHAY Administration Albuterol/Ipratropium 1 amp 11/25/17 19:28 11/26/17 02:16 Duoneb - NEB 1 amp Q4H PRN Administration SHORTNESS OF BREATH Docusate Sodium 100 mg 11/25/17 22:00 11/26/17 21:30 Colace - PO Not Given BID SHAY Ceftriaxone Sodium 2 gm/ 100 mls @ 200 mls/hr 11/26/17 10:00 11/26/17 11:03 Dextrose IVPB 200 mls/hr DAILY SHAY Administration Potassium Chloride 10 meq/ 105 mls @ 100 mls/hr 11/27/17 10:45 Sodium Chloride IVPB 11/27/17 13:44 Q60M SHAY Labetalol HCl 5 mg 11/26/17 21:10 11/27/17 01:52 Normodyne Injection - IVPUSH 5 mg Q1H PRN Administration HYPERTENSION Metoprolol Succinate 50 mg 11/26/17 10:00 11/26/17 21:30 Toprol Xl - PO Not Given BID SHAY Oseltamivir Phosphate 30 mg 11/25/17 22:00 11/26/17 21:30 Tamiflu - PO 11/30/17 21:59 Not Given BID SHAY Polyethylene Glycol 17 gm 11/26/17 10:00 11/26/17 11:16 Miralax (For Daily Use) - PO Not Given DAILY SHAY CBC, BMP 11/27/17 08:24 11/27/17 08:24 ecg: afib rvr, nl qtc, no ischemic changes cxr: r infiltrate tele: sr a/p: 82 m hx dementia, htn, hld, ckd sent from [facility] for fever. pafib: -in sr now -started toprol 50 bid in case reverts to afib but unable to take po, cont with prn iv bb for now -chadsvasc warrants ac but pt with anemia here (unknown baseline) and dementia so unclear if he is good candidate for ac -echo pending htn: -not taking po, cont prn iv bb hld: -cont home statin ckd: -monitor cr trend uri, flu: -abx per PMD trop elevation: -borderline trop elevation, does not appear to be acs -check echo
[2017-11-27] MEDS ORDERED: PT OWN MED DRAWER 7, Y5N ONE ×2 (11:21→21:07)
[2017-11-27] MEDS: DOCUSATE SODIUM 100 MG CAPSULE (FP) PO SCH ×2 (11:30→23:03)
[2017-11-27] MEDS: CEFTRIAXONE 2 GM in DEXTROSE 5%-WATER - 100 ML IVPB SCH (11:30)
[2017-11-27] MEDS: POTASSIUM CHLORIDE 10 MEQ in SODIUM CHLORIDE 100 ML IVPB SCH ×5 (12:37→22:25)
--- NOTE | 2017-11-27 15:00 | CONSULT ---
Admitting History and Physical - Primary Care Physician PCP: Oneyda Medrano I - Admission History of Present Illness: Patient is an 82M with history of dementia, HTN, HLD and BPH sent from [facility] due to 2 days of fever, today to 103. Per staff at [facility] ++ moist cough and more withdrawn. Patient has hx of dementia and is unreliable historian, and unable to provide any hx or complaint. 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 - Advance Directives Advance Directives: Yes: DNR - Smoking History Smoking history: Never smoked Have you smoked in the past 12 months: No - Alcohol/Substance Use Hx Alcohol Use: No - Social History ADL: Support Services History of Recent Travel: No History - Admission Reason For Visit: FEVER - Diagnostics X-ray: Report Reviewed (early right base infiltrate) - General Mental Status: Awake and Alert, Able to Follow Commands, Confused Attention: Distractible Ability to Follow Directions: Fair Head/Neck Control: Good - Hearing Hearing: Functional Hearing Aide: No With Patient: No Speech Evaluation - Communication Primary Language: UKRAINIAN Communication: Yes: Simple Responses - Speech Production Able to Make Needs Known: Yes: WNL Intelligibility: Yes: WNL - Speech Characteristics Voice Loudness: Normal Voice Pitch: Yes: Normal Voice Phonatory-based Quality: Yes: Vocal Wetness Speech Pattern: Normal Speech Clarity: < 100% Nasal Resonance: Normal Articulation: Yes: Precise - Language/Auditory Comprehension Follows: Yes: 1 Stage Simple Commands - Swallow Evaluation/Bedside Assessment Current Nutritional Intake: Regular, Thin Liquids Facial Symmetry at Rest: Symmetrical Lingual Movement: Symmetric Laryngeal Movement: Labored,delay initiation, Reduced Velocity Bolus Size: WFL Labial Seal: WFL Oral Prep Time: Increased A-P Transit: Impaired Timing of Swallow: Delayed Coughing/Throat Clear: Yes Change in Voice: Yes Recommendations - Speech Evaluation, Impression/Plan Impression: Vocal wetness at baseline. responsive increase in wet voice and cough following thin water. on Nc - Dysphagia Impressions/Plan Swallowing Skills: Impaired Dysphagia Impressions: Mild Impairment *Silent aspiration: cannot be R/O at bedside Dysphagia Treatment Plan: Chin Tuck/Down, Safe Rate, 1/2 tsp. at a time, Elevate HOB during feed Recommendations: Modified Barium Swallow (if cough/congestion persists or to upgrade diet) - Recommendations Diet Consistency: Dysphagia Pureed Medication Administration: Crushed with applesauce Liquids: Pine Apple Thick Supplement: Magic Cup, Ensure Pudding
--- NOTE | 2017-11-27 15:56 | PN ---
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 (short form) - Note 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: off bipap responsive congested cough vanco/zosyn 11/25, now on rocephin day #2 Vital Signs Period Temp Pulse Resp BP Sys/Cannon Pulse Ox Last 24 Hr 99.2 F-102.5 F 84-140 22-24 163-194/78-105 100-100 cor-rrr lungs bilateral rhonchi abd soft,nt ext no edema no skin breakdown CBC, BMP 11/27/17 08:24 11/27/17 08:24 cxray ?rll infiltrate a/p d/w at bedside frequent falls recently almost 10 year history of worsening dementia! continue tamiflu for empiric influenza treatment continue rocephin for possible RLL pneumonia blood culture isolate pediococcus- one bottle probable contaminant no history of prosthetic devices f/u cultures
--- NOTE | 2017-11-27 17:28 | PN ---
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 (short form) - Note 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: seen and examined in room patient on Bipap responds to verbal stimuli more alert than previous days Vital Signs Period Temp Pulse Resp BP Sys/Cannon Pulse Ox Last 24 Hr 99.2 F-102.5 F 84-140 22-24 163-194/76-105 100-100 bipap no distress neck supple heart s1/s2 Luns scattered rhonchi abd soft non tender ext no edema CBC, BMP 11/27/17 08:24 11/27/17 08:24 CXR - Right infiltrate Microbiology 11/26/17 12:00 Nasopharyngeal Swab Respiratory Virus (PCR) - Preliminary 11/25/17 17:24 Blood - Peripheral Venous Blood Culture - Preliminary Pediococcus Pentosaceus 11/25/17 18:32 Urine - Urine Clean Catch Urine Culture - Final NO GROWTH OBTAINED 11/25/17 17:12 Blood - Peripheral Venous Blood Culture - Preliminary NO GROWTH OBTAINED AFTER 24 HOURS, INCUBATION TO CONTINUE FOR 4 DAYS. 11/26/17 12:00 Nasopharyngeal Swab Influenza Types A,B Antigen (JEREMY) - Final 11/26/17 12:00 Nasopharyngeal Swab - Final Active Medications Acetaminophen (Tylenol -) 650 mg PO Q4H PRN PRN Reason: fever Acetaminophen (Tylenol Suppository -) 650 mg OK Q4H PRN PRN Reason: FEVER Last Admin: 11/27/17 07:17 Dose: 650 mg Albuterol/Ipratropium (Duoneb -) 1 amp NEB RQID [facility] Last Admin: 11/27/17 11:27 Dose: 1 amp Albuterol/Ipratropium (Duoneb -) 1 amp NEB Q4H PRN PRN Reason: SHORTNESS OF BREATH Last Admin: 11/26/17 02:16 Dose: 1 amp Docusate Sodium (Colace -) 100 mg PO BID [facility] Last Admin: 11/27/17 11:30 Dose: 100 mg Ceftriaxone Sodium 2 gm/ (Dextrose) 100 mls @ 200 mls/hr IVPB DAILY [facility] Last Admin: 11/27/17 11:30 Dose: 200 mls/hr Labetalol HCl (Normodyne Injection -) 5 mg IVPUSH Q1H PRN PRN Reason: HYPERTENSION Last Admin: 11/27/17 11:31 Dose: 5 mg Metoprolol Succinate (Toprol Xl -) 50 mg PO BID [facility] Last Admin: 03/16/18 11:29 Dose: 50 mg Oseltamivir Phosphate (Tamiflu -) 30 mg PO BID SHAY Stop: 11/30/17 21:59 Last Admin: 11/26/17 21:30 Dose: Not Given Polyethylene Glycol (Miralax (For Daily Use) -) 17 gm PO DAILY [facility] Last Admin: 11/26/17 11:16 Dose: Not Given # + blood c/s - follow up cultures discussed with ID on Rochepin and Tamiflu emperic tx for PNA and influenza clinically improved # PAF A fib with RVR - no prior hx IV BB as tolerated for rate control until able to take PO Telemetry ---currently in SR risk of a/c to discuss with Cardio and family # Inc TNI 2/2 to demand Fever / AFib RVR discuss with cardio unlikely ACS will trend #CKD will trend # HTN on multiple home meds will resume once cleared post swallow eval continue to monitor # Hypokalemia replace via IV ck Magnesium replace lytes as needed # Dementia long standing at baseline Problem List - Problems (1) Acute tracheobronchitis Code(s): J20.9 - ACUTE BRONCHITIS, UNSPECIFIED (2) Dementia Code(s): F03.90 - UNSPECIFIED DEMENTIA WITHOUT BEHAVIORAL DISTURBANCE (3) HTN (hypertension) Code(s): I10 - ESSENTIAL (PRIMARY) HYPERTENSION (4) HLD (hyperlipidemia) Code(s): E78.5 - HYPERLIPIDEMIA, UNSPECIFIED (5) BPH (benign prostatic hyperplasia) Code(s): N40.0 - BENIGN PROSTATIC HYPERPLASIA WITHOUT LOWER URINRY TRACT SYMP (6) CKD (chronic kidney disease) stage 3, GFR 30-59 ml/min Code(s): N18.3 - CHRONIC KIDNEY DISEASE, STAGE 3 (MODERATE)
[2017-11-27] MEDS ORDERED: KCL 10 MEQ IVPB 10 MEQ/100 ML INFUS.BAG IVPB SCH (17:45)
[2017-11-27] MEDS: POLYETHYLENE GLYCOL 3350 119 GM BTL PO SCH (18:39)
[2017-11-27] MEDS ORDERED: dilTIAZem HCL 25 MG/5 ML - 5 ML VIAL IVPUSH ONE (20:00)
[2017-11-27] MEDS ORDERED: DILTIAZEM INJECTION 125 MG in DEXTROSE 5%-WATER - 100 ML IVPB SCH (20:15)
[2017-11-27] MEDS: OSELTAMIVIR PHOSPHATE 30 MG CAPSULE PO SCH ×2 (20:31→22:42)
[2017-11-27 22:53] LABS: ANION GAP 15 (8-16); BLOOD UREA NITROGEN 43 mg/dL (7-18); CHLORIDE 119 mmol/L (98-107); CO2 21 mmol/L (21-32); CREATININE 2.1 mg/dL (0.7-1.3); GLUCOSE,RANDOM 258 mg/dL (74-106); POTASSIUM 3.7 mmol/L (3.5-5.1); SODIUM 155 mmol/L (136-145)
[2017-11-27] MEDS: METOPROLOL TARTRATE 50 MG TABLET (FP) PO SCH ×2 (23:03→23:10)
[2017-11-28] MEDS: POTASSIUM CHLORIDE 10 MEQ in SODIUM CHLORIDE 100 ML IVPB SCH (00:02)
[2017-11-28] MEDS ORDERED: ALBUTEROL SO4 2.5/IPRATROPIUM 0.5 INH SOL 3 ML VIAL.NEB. NEB PRN (00:04)
[2017-11-28] MEDS: METOPROLOL TARTRATE 50 MG TABLET (FP) PO SCH ×3 (00:46→21:39)
[2017-11-28] MEDS ORDERED: FUROSEMIDE 40 MG/4 ML INJECTABLE VIAL IVPUSH ONE (01:00)
[2017-11-28 06:15] LABS: HEMOGLOBIN 8.3 GM/dL (11.7-16.9); MCH 31.5 pg (25.7-33.7); MCHC 33.2 g/dl (32.0-35.9); MEAN PLT VOLUME 10.1 fl (7.5-11.1); PLATELET COUNT 190 K/MM3 (134-434); RBC 2.63 M/mm3 (4.00-5.60); WHITE BLOOD COUNT 12.4 K/mm3 (4.0-10.0)
--- NOTE | 2017-11-28 06:47 | PN ---
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, Physician Chief Complaint: ID Febrile low grade but not the 103.8 of admission Tamiflu & Ceftriaxone - Current Medication List Current Medications: Active Medications Acetaminophen (Tylenol Suppository -) 650 mg ME Q4H PRN PRN Reason: FEVER Last Admin: 11/27/17 15:00 Dose: 650 mg Acetaminophen (Tylenol -) 650 mg PO Q4H PRN PRN Reason: fever Albuterol/Ipratropium (Duoneb -) 1 amp NEB Q4H PRN PRN Reason: SHORTNESS OF BREATH Albuterol/Ipratropium (Duoneb -) 1 amp NEB RQID SHAY Diltiazem HCl (Cardizem Injection -) 10 mg IVPUSH Q4H PRN PRN Reason: FOR HR>130 Docusate Sodium (Colace -) 100 mg PO BID SHAY Hydralazine HCl (Apresoline Injection -) 10 mg IVPUSH Q4H PRN PRN Reason: FOR SBP>150 Ceftriaxone Sodium 2 gm/ (Dextrose) 100 mls @ 200 mls/hr IVPB DAILY [facility] Last Admin: 11/27/17 11:30 Dose: 200 mls/hr Diltiazem HCl 125 mg/ Dextrose 125 mls @ 5 mls/hr IVPB TITR SHAY; 5 MG/HR PRN Reason: Protocol Last Admin: 11/27/17 22:24 Dose: 5 mg/hr, 5 mls/hr Metoprolol Tartrate (Lopressor -) 100 mg PO BID [facility] Last Admin: 11/28/17 00:46 Dose: Not Given Oseltamivir Phosphate (Tamiflu -) 30 mg PO BID [facility] Stop: 11/30/17 21:59 Polyethylene Glycol (Miralax (For Daily Use) -) 17 gm PO DAILY [facility] - Objective Vital Signs: Vital Signs Temperature 100.3 F H 11/27/17 23:30 Pulse Rate 128 H 11/28/17 00:00 Respiratory Rate 22 11/28/17 00:00 Blood Pressure 181/85 11/28/17 00:00 O2 Sat by Pulse Oximetry (%) 97 11/28/17 06:39 Constitutional: Yes: Mild Distress Neck: Yes: WNL, Supple Cardiovascular: Yes: Regular Rate and Rhythm, Tachycardia, Murmur, S1, S2 Respiratory: Yes: WNL, Regular, CTA Bilaterally, Rhonchi Gastrointestinal: Yes: WNL, Normal Bowel Sounds, Soft. No: Tenderness, Tenderness, Rebound Edema: No Labs: CBC, BMP 11/28/17 05:06 INR, PTT INR 1.03 (0.82-1.09) 11/25/17 17:24 Problem List - Problems (1) Influenza Code(s): J11.1 - FLU DUE TO UNIDENTIFIED INFLUENZA VIRUS W OTH RESP MANIFEST (2) Acute respiratory failure Code(s): J96.00 - ACUTE RESPIRATORY FAILURE, UNSP W HYPOXIA OR HYPERCAPNIA (3) Pneumonia Code(s): J18.9 - PNEUMONIA, UNSPECIFIED ORGANISM Assessment/Plan Microbiology 11/26/17 12:00 Nasopharyngeal Swab Influenza Types A,B Antigen (JEREMY) - Final 11/26/17 12:00 Nasopharyngeal Swab - Final 11/25/17 18:32 Urine - Urine Clean Catch Urine Culture - Final NO GROWTH OBTAINED 11/25/17 17:24 Blood - Peripheral Venous Blood Culture - Preliminary Pediococcus Pentosaceus 11/25/17 17:12 Blood - Peripheral Venous Blood Culture - Preliminary NO GROWTH OBTAINED AFTER 48 HOURS, INCUBATION TO CONTINUE FOR 3 DAYS. Laboratory Tests 11/27/17 11/28/17 11/28/17 21:55 05:06 05:06 WBC 12.4 H Hgb 8.3 L Hct 25.0 L Plt Count 190 BUN 43 H Pending Creatinine 2.1 H Pending Assessment Acute respiratory illness INfluenza like Pneumonia possible Rapid atrial fibrillation Acute renal injury Dementia Plan Continue current antibiotic and Oseltamavir suspected Influenza Obtain repeat chest xrdarryl Nguyen MD
[2017-11-28 06:50] LABS: ANION GAP 12 (8-16); BLOOD UREA NITROGEN 47 mg/dL (7-18); CHLORIDE 120 mmol/L (98-107); CO2 23 mmol/L (21-32); CREATININE 2.2 mg/dL (0.7-1.3); GLUCOSE,RANDOM 260 mg/dL (74-106); SODIUM 155 mmol/L (136-145)
[2017-11-28] MEDS: ALBUTEROL SO4 2.5/IPRATROPIUM 0.5 INH SOL 3 ML VIAL.NEB. NEB SCH ×4 (08:39→20:50)
[2017-11-28] MEDS ORDERED: DEXTROSE 5%-WATER - 50 ML IVPB ONE (09:08)
[2017-11-28] MEDS ORDERED: cefTRIAXone SODIUM 1 GM VIAL ONE (09:08)
--- NOTE | 2017-11-28 09:09 | CON.PULM ---
Consult Consult Specialty:: PULM/CCM Referred by:: AMINTA Reason for Consultation:: SOB - History of Present Illness Chief Complaint: SOB History of Present Illness: 82 M, history of dementia, HTN, HLD and BPH. Admitted via the ER due to days of fever to 13 and SOB. Initially admitted to the medical floor and being treated empirically for CAP and Flu. Developed acute respiratory distress/failure requiring NIPPV support. Now seen in the ICU. He is awake and alert but mildly confused on NIPPV. 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 - Alcohol/Substance Use Hx Alcohol Use: No - Smoking History Smoking history: Never smoked Have you smoked in the past 12 months: No - Social History ADL: Support Services History of Recent Travel: No Home Medications - Allergies Allergies/Adverse Reactions: Allergies Allergy/AdvReac Type Severity Reaction Status Date / Time apricot Allergy Unknown Verified 11/25/17 16:53 morrison Allergy Unknown Itching Verified 11/27/17 16:53 peach Allergy Unknown Verified 11/25/17 16:53 phenobarbital Allergy Unknown Verified 11/25/17 16:53 NECTARINE TREE Allergy Unknown Uncoded 11/25/17 16:53 SUMME FRUITS Allergy Unknown Uncoded 11/25/17 16:53 - Home Medications Home Medications: Ambulatory Orders Amlodipine Besylate 5 mg PO 11/25/17 Ascorbic Acid [Vitamin C -] 500 mg PO DAILY 11/25/17 Atorvastatin Ca [Lipitor] 40 mg PO HS 11/25/17 Cholecalciferol (Vitamin D3) [Vitamin D3] 50,000 unit PO DAILY 11/25/17 Citalopram Hydrobromide [Citalopram HBr] 10 mg PO DAILY 11/25/17 Clonidine HCl 0.3 mg PO HS 11/25/17 Hydralazine HCl 25 mg PO TID 11/25/17 Losartan Potassium 50 mg PO DAILY 11/25/17 Metoprolol Succinate [Toprol Xl] 100 mg PO DAILY 11/25/17 Nystatin Powder [Nystop Topical Powder -] 30 gm TP DAILY PRN 11/25/17 Olanzapine 5 mg PO DAILY 11/25/17 Oseltamivir Phosphate 30 mg PO DAILY MDD 14 days 11/25/17 Polyethylene Glycol 3350 [Laxaclear] 1,700 gm PO DAILY 11/25/17 Terazosin HCl 5 mg PO HS 11/25/17 Review of Systems - Review of Systems Constitutional: reports: Malaise, Weakness. denies: Chills, Fever, Night Sweats Eyes: reports: No Symptoms HENT: reports: No Symptoms Neck: reports: No Symptoms Cardiovascular: reports: Shortness of Breath. denies: Chest Pain Respiratory: reports: Cough, SOB, Wheezing. denies: Hemoptysis Gastrointestinal: reports: No Symptoms Genitourinary: reports: No Symptoms Breasts: reports: No Symptoms Reported Musculoskeletal: reports: No Symptoms Integumentary: reports: No Symptoms Neurological: reports: No Symptoms Endocrine: reports: No Symptoms Hematology/Lymphatic: reports: No Symptoms Psychiatric: reports: No Symptoms Physical Exam Vital Sings: Vital Signs Temperature 100.3 F H 11/27/17 23:30 Pulse Rate 71 11/28/17 08:00 Respiratory Rate 28 H 11/28/17 08:00 Blood Pressure 191/68 11/28/17 08:00 O2 Sat by Pulse Oximetry (%) 100 11/28/17 08:37 Constitutional: Yes: Mild Distress, Thin Eyes: Yes: Conjunctiva Clear, EOM Intact HENT: Yes: Atraumatic, Normocephalic Neck: Yes: Supple, Trachea Midline Cardiovascular: Yes: Tachycardia Respiratory: Yes: Accessory Muscle Use, Cough, On BiPap, Rhonchi, SOB, Tachypnea , Wheezes ...Inspection: Yes: WNL ...Clubbing: No Gastrointestinal: Yes: Normal Bowel Sounds, Soft Renal/: Yes: WNL Breast(s): Yes: WNL Musculoskeletal: Yes: WNL Extremities: Yes: WNL Edema: No Peripheral Pulses WNL: Yes Integumentary: Yes: WNL Neurological: Yes: Alert, Confusion ...Motor Strength: WNL Psychiatric: Yes: Alert Labs: CBC, BMP 11/28/17 05:06 11/28/17 05:06 ABG Results ABG pH 7.27 (7.35-7.45) L 11/26/17 01:55 ABG pCO2 at Pt Temp 43.2 mmHg (35-45) 11/26/17 01:55 ABG pO2 at Pt Temp 81.1 mmHg (68-100) 11/26/17 01:55 ABG HCO3 19.2 meq/L (22-26) L 11/26/17 01:55 ABG O2 Sat (Measured) 92.9 % (90-98.9) 11/26/17 01:55 ABG O2 Content 15.0 % vol (15-22) 11/26/17 01:55 ABG Base Excess -7.0 meq/l (-2-2) L 11/26/17 01:55 Imaging - Results Chest X-ray: Report Reviewed, Image Reviewed Problem List - Problems (1) Acute respiratory failure Code(s): J96.00 - ACUTE RESPIRATORY FAILURE, UNSP W HYPOXIA OR HYPERCAPNIA (2) BPH (benign prostatic hyperplasia) Code(s): N40.0 - BENIGN PROSTATIC HYPERPLASIA WITHOUT LOWER URINRY TRACT SYMP (3) CKD (chronic kidney disease) stage 3, GFR 30-59 ml/min Code(s): N18.3 - CHRONIC KIDNEY DISEASE, STAGE 3 (MODERATE) (4) Dementia Code(s): F03.90 - UNSPECIFIED DEMENTIA WITHOUT BEHAVIORAL DISTURBANCE (5) Fever Code(s): R50.9 - FEVER, UNSPECIFIED Qualifiers: Fever type: unspecified Qualified Code(s): R50.9 - Fever, unspecified (6) HLD (hyperlipidemia) Code(s): E78.5 - HYPERLIPIDEMIA, UNSPECIFIED (7) HTN (hypertension) Code(s): I10 - ESSENTIAL (PRIMARY) HYPERTENSION (8) Influenza Code(s): J11.1 - FLU DUE TO UNIDENTIFIED INFLUENZA VIRUS W OTH RESP MANIFEST (9) Pneumonia Code(s): J18.9 - PNEUMONIA, UNSPECIFIED ORGANISM Assessment/Plan NIPPV Support Add Flagyl Aspiration precautions Follow CXR BD TX Trial of steroids Strict & O ICU monitoring Dr Aguayo Critical care time spent in reviewing chart, evaluating patient and formulating plan - 36 minutes.
[2017-11-28] MEDS: hydrALAZINE HCL 20 MG/ML VIAL IVPUSH PRN (09:22)
[2017-11-28] MEDS ORDERED: methylPREDNISolone NA SUCC 40 MG/1 ML VIAL IVPUSH SCH (10:00)
[2017-11-28] MEDS: CEFTRIAXONE 1 GM in DEXTROSE 5%-WATER - 50 ML IVPB SCH (10:53)
[2017-11-28] MEDS: DOCUSATE SODIUM 100 MG CAPSULE (FP) PO SCH ×2 (10:53→21:40)
[2017-11-28] MEDS: POLYETHYLENE GLYCOL 3350 119 GM BTL PO SCH (10:54)
[2017-11-28] MEDS: OSELTAMIVIR PHOSPHATE 30 MG CAPSULE PO SCH ×2 (10:55→22:00)
--- NOTE | 2017-11-28 11:44 | PN ---
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 (short form) - Note 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: s: lethargic, not comunicating, not taking po meds, on bipap still, overnight with rvr o: Vital Signs Temp 100.3 F H 11/27/17 23:30 Pulse 68 11/28/17 09:25 Resp 28 H 11/28/17 09:25 BP 191/71 11/28/17 09:25 Pulse Ox 100 11/28/17 11:14 Intake & Output 11/27/17 11/27/17 11/28/17 11:59 23:59 11:59 Intake Total 0 350 290 Balance 0 350 290 Intake: IV 50 50 Cardizem Injection - 125 50 mg In D5w - 100 ml @ 5 MG /HR 5 mls/hr IVPB TITR SHAY Rx#:[id number] saline lock 50 IVPB 300 Oral 0 240 Other: Voiding Method Incontinent Incontinent Incontinent # Unmeasured Voids Void 2 1 Bowel Movement No Yes nad no jvd on bipap coarse bs bl, weak eff lethargic no jaundice diaphoresis abd nd pos bs rrr s1s2 no mrg no le e/c/c Current Medications Generic Name Dose Route Start Last Admin Trade Name Freq PRN Reason Stop Dose Admin Acetaminophen 650 mg 11/26/17 15:35 11/27/17 15:00 Tylenol Suppository - [place] 650 mg Q4H PRN Administration FEVER Acetaminophen 650 mg 11/28/17 00:04 Tylenol - PO Q4H PRN fever Albuterol/Ipratropium 1 amp 11/28/17 00:04 Duoneb - NEB Q4H PRN SHORTNESS OF BREATH Albuterol/Ipratropium 1 amp 11/28/17 08:00 11/28/17 11:14 Duoneb - NEB 1 amp RQID [facility]AY Administration Diltiazem HCl 10 mg 11/27/17 18:58 Cardizem Injection - IVPUSH Q4H PRN FOR HR>130 Docusate Sodium 100 mg 11/28/17 10:00 11/28/17 10:53 Colace - PO 100 mg BID [facility]AY Administration Hydralazine HCl 10 mg 11/27/17 20:01 11/28/17 09:22 Apresoline Injection - IVPUSH 10 mg Q4H PRN Administration FOR SBP>150 Diltiazem HCl 125 mg/ Dextrose 125 mls @ 5 mls/hr 11/27/17 20:15 11/27/17 22: 24 IVPB 5 mg/hr TITR SHAY 5 mls/hr Protocol Administration 5 MG/HR Ceftriaxone Sodium 1 gm/ 50 mls @ 100 mls/hr 11/28/17 10:00 11/28/17 10:53 Dextrose IVPB 100 mls/hr DAILY [facility] Administration Metronidazole 500 mg in 100 mls @ 100 mls/hr 11/28/17 10:30 Flagyl 500mg Premixed Ivpb - IVPB Q8H-IV [facility] Methylprednisolone Sodium Succinate 40 mg 11/28/17 10:00 11/28/17 10:53 Solu-Medrol - IVPUSH 40 mg DAILY [facility] Administration Metoprolol Tartrate 100 mg 11/27/17 20:15 11/28/17 10:53 Lopressor - PO 100 mg BID [facility] Administration Oseltamivir Phosphate 30 mg 11/28/17 10:00 11/28/17 10:55 Tamiflu - PO 11/30/17 21:59 30 mg BID [facility] Administration Polyethylene Glycol 17 gm 11/28/17 10:00 11/28/17 10:54 Miralax (For Daily Use) - PO Not Given DAILY [facility] Laboratory Last Values WBC 12.4 K/mm3 (4.0-10.0) H 11/28/17 05:06 RBC 2.63 M/mm3 (4.00-5.60) L 11/28/17 05:06 Hgb 8.3 GM/dL (11.7-16.9) L 11/28/17 05:06 Hct 25.0 % (35.4-49) L 11/28/17 05:06 MCV 95.0 fl (80-96) 11/28/17 05:06 MCH 31.5 pg (25.7-33.7) 11/28/17 05:06 MCHC 33.2 g/dl (32.0-35.9) 11/28/17 05:06 RDW 16.0 % (11.9-15.9) H 11/28/17 05:06 Plt Count 190 K/MM3 (134-434) 11/28/17 05:06 MPV 10.1 fl (7.5-11.1) D 11/28/17 05:06 Neutrophils % 83.7 % (42.8-82.8) H 11/25/17 17:24 Lymphocytes % 10.8 % (8-40) 11/25/17 17:24 Monocytes % 4.8 % (3.8-10.2) 11/25/17 17:24 Eosinophils % 0.4 % (0-4.5) 11/25/17 17: Basophils % 0.3 % (0-2.0) 11/25/17 17:24 PT with INR 11.60 SEC (9.98-11.88) 11/25/17 17:24 INR 1.03 (0.82-1.09) 11/25/17 17:24 PTT (Actin FS) 31.1 SECONDS (26.9-34.4) 11/25/17 17:24 Anticoagulation Therapy No Result Required. 11/26/17 01:55 Puncture Site Right radial 11/26/17 01:55 ABG pH 7.27 (7.35-7.45) L 11/26/17 01:55 ABG pCO2 at Pt Temp 43.2 mmHg (35-45) 11/26/17 01:55 ABG pO2 at Pt Temp 81.1 mmHg (68-100) 11/26/17 01:55 ABG HCO3 19.2 meq/L (22-26) L 11/26/17 01:55 ABG O2 Sat (Measured) 92.9 % (90-98.9) 11/26/17 01:55 ABG O2 Content 15.0 % vol (15-22) 11/26/17 01:55 ABG Base Excess -7.0 meq/l (-2-2) L 11/26/17 01:55 Shadi Test Positive 11/26/17 01:55 VBG pH 7.44 (7.32-7.42) H 11/25/17 17:56 POC VBG pCO2 31.3 mmHg (38-52) L 11/25/17 17:56 POC VBG pO2 36.6 mmHg (28-48) 11/25/17 17:56 Mixed VBG HCO3 21.1 meq/L (19-25) 11/25/17 17:56 O2 Delivery Device No Result Required. 11/26/17 01:55 Oxygen Flow Rate 100% 11/26/17 01:55 Vent Mode No Result Required. 11/26/17 01:55 Vent Rate No Result Required. 11/26/17 01:55 Mechanical Rate No Result Required. 11/26/17 01:55 Pressure Support Vent No Result Required. 11/26/17 01:55 Sodium 155 mmol/L (136-145) H 11/28/17 05:06 Potassium 4.0 mmol/L (3.5-5.1) 11/28/17 05:06 Chloride 120 mmol/L (98-107) H 11/28/17 05:06 Carbon Dioxide 23 mmol/L (21-32) 11/28/17 05:06 Anion Gap 12 (8-16) 11/28/17 05:06 BUN 47 mg/dL (7-18) H 11/28/17 05:06 Creatinine 2.2 mg/dL (0.7-1.3) H 11/28/17 05:06 Creat Clearance w eGFR 36.13 (>60) 11/25/17 17:24 Random Glucose 260 mg/dL (74-106) H 11/28/17 05:06 Lactic Acid 1.7 mmol/L (0.0-2.0) 11/25/17 17:24 Calcium 8.0 mg/dL (8.5-10.1) L 11/28/17 05:06 Magnesium 1.8 mg/dL (1.8-2.4) 11/28/17 05:06 Total Bilirubin 0.3 mg/dL (0.2-1.0) 11/25/17 17:24 AST 65 U/L (15-37) H 11/25/17 17:24 ALT 32 U/L (12-78) 11/25/17 17:24 Alkaline Phosphatase 70 U/L (45-117) 11/25/17 17:24 Troponin I 0.29 ng/ml (0.00-0.05) H D 11/26/17 05:35 Total Protein 5.5 g/dl (6.4-8.2) L 11/25/17 17:24 Albumin 2.9 g/dl (3.4-5.0) L 11/25/17 17:24 Urine Color Red 11/25/17 18:32 Urine Appearance Cloudy 11/25/17 18:32 Urine pH 6.0 (5.0-8.0) 11/25/17 18:32 Ur Specific [place] 1.014 (1.001-1.035) 11/25/17 18:32 Urine Protein 2+ (NEGATIVE) H 11/25/17 18:32 Urine Glucose (UA) 1+ (NEGATIVE) H 11/25/17 18:32 Urine Ketones Negative (NEGATIVE) 11/25/17 18:32 Urine Blood 3+ (NEGATIVE) H 11/25/17 18:32 Urine Nitrite Negative (NEGATIVE) 11/25/17 18:32 Urine Bilirubin Negative (NEGATIVE) 11/25/17 18:32 Urine Urobilinogen Negative mg/dL (0.2-1.0) 11/25/17 18:32 Ur Leukocyte Esterase Negative (NEGATIVE) 11/25/17 18:32 Urine WBC (Auto) None /hpf (3-5) 11/25/17 18:32 Urine RBC (Auto) 4300 /hpf (0-3) 11/25/17 18:32 Urine Bacteria Rare /hpf (NONE SEEN) 11/25/17 18:32 Stool Occult Blood Negative (NEGATIVE) 11/25/17 17:24 ecg: afib rvr, nl qtc, no ischemic changes cxr: r infiltrate tele: sr now, afib with rvr overnight echo 11/2017: nl lv/rv, mild lvh, mild lae, mild mr/tr/ar/pr cxr: infiltrates, congestion est cct 35 mins a/p: 82 m hx dementia, htn, hld, ckd sent from retirement for fever. pafib: -overnight in rvr, did not respond to iv bb or iv dilt pushes so started on dilt gtt. Now in sr. Can titrate off dilt gtt for now. He is unable to take po meds so if develops rvr again he may need dilt gtt again -chadsvasc warrants ac but pt with anemia here (unknown baseline) and dementia so unclear if he is good candidate for ac -echo unremarkable htn: -not taking po, cont prn iv hydralazine hld: -resume statin when taking po dk, ckd: -cr up today, likely from rvr, sepsis -rate control as above -now on abx as well uri, flu: -abx per PMD -?asp pna now as well trop elevation: -borderline trop elevation, does not appear to be acs -echo unremarkable
--- NOTE | 2017-11-28 16:13 | PN ---
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 (short form) - Note 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: seen and examined in room patient on nasal O2 awake / speaking incoherently / more alert than previous days Vital Signs Period Temp Pulse Resp BP Sys/Cannon Pulse Ox Last 24 Hr 98.1 F-100.3 F 68-160 22-32 150-195/68-101 94-100 no distress neck supple heart s1/s2 Luns scattered rhonchi right > left abd soft non tender ext no edema CBC, BMP 11/28/17 05:06 11/28/17 05:06 CBC, BMP 11/27/17 08:24 11/27/17 08:24 CXR - Right infiltrate / congestion Microbiology 11/25/17 17:24 Blood - Peripheral Venous Blood Culture - Final Pediococcus Pentosaceus 11/25/17 17:12 Blood - Peripheral Venous Blood Culture - Preliminary NO GROWTH OBTAINED AFTER 48 HOURS, INCUBATION TO CONTINUE FOR 3 DAYS. 11/26/17 12:00 Nasopharyngeal Swab Respiratory Virus (PCR) - Preliminary 11/25/17 18:32 Urine - Urine Clean Catch Urine Culture - Final NO GROWTH OBTAINED 11/26/17 12:00 Nasopharyngeal Swab Influenza Types A,B Antigen (JEREMY) - Final 11/26/17 12:00 Nasopharyngeal Swab - Final Active Medications Acetaminophen (Tylenol Suppository -) 650 mg [place] Q4H PRN PRN Reason: FEVER Last Admin: 11/27/17 15:00 Dose: 650 mg Acetaminophen (Tylenol -) 650 mg PO Q4H PRN PRN Reason: fever Albuterol/Ipratropium (Duoneb -) 1 amp NEB Q4H PRN PRN Reason: SHORTNESS OF BREATH Albuterol/Ipratropium (Duoneb -) 1 amp NEB RQID [facility] Last Admin: 11/28/17 11:14 Dose: 1 amp Diltiazem HCl (Cardizem Injection -) 10 mg IVPUSH Q4H PRN PRN Reason: FOR HR>130 Docusate Sodium (Colace -) 100 mg PO BID [facility] Last Admin: 11/28/17 10:53 Dose: 100 mg Hydralazine HCl (Apresoline Injection -) 10 mg IVPUSH Q4H PRN PRN Reason: FOR SBP>150 Last Admin: 11/28/17 09:22 Dose: 10 mg Diltiazem HCl 125 mg/ Dextrose 125 mls @ 5 mls/hr IVPB TITR SHAY; 5 MG/HR PRN Reason: Protocol Last Titration: 11/28/17 07:00 Dose: 3 mg/hr, 3 mls/hr Ceftriaxone Sodium 1 gm/ (Dextrose) 50 mls @ 100 mls/hr IVPB DAILY [facility] Last Admin: 11/28/17 10:53 Dose: 100 mls/hr Metronidazole (Flagyl 500mg Premixed Ivpb -) 500 mg in 100 mls @ 100 mls/hr IVPB Q8H-IV [facility] Last Admin: 11/28/17 13:37 Dose: 100 mls/hr Methylprednisolone Sodium Succinate (Solu-Medrol -) 40 mg IVPUSH DAILY [facility] Last Admin: 11/28/17 10:53 Dose: 40 mg Metoprolol Tartrate (Lopressor -) 100 mg PO BID [facility] Last Admin: 11/28/17 10:53 Dose: 100 mg Oseltamivir Phosphate (Tamiflu -) 30 mg PO BID [facility] Stop: 11/30/17 21:59 Last Admin: 11/28/17 10:55 Dose: 30 mg Polyethylene Glycol (Miralax (For Daily Use) -) 17 gm PO DAILY [facility] Last Admin: 11/28/17 10:54 Dose: Not Given telemetry -- in RVR last night - now in sinus although had swallow eval unclear if he will be able to take PO meds will not follow directions -- long hx of dementia # + blood c/s - follow up cultures discussed with ID on Rochepin and Tamiflu emperic tx for PNA and influenza clinically improved # PAF A fib with RVR - no prior hx IV BB as tolerated for rate control until able to take PO Telemetry ---currently in SR risk of a/c to discuss with Cardio and family --defer a/c # Inc TNI 2/2 to demand Fever / AFib RVR discuss with cardio unlikely ACS will trend #CKD will trend # HTN on multiple home meds will resume once cleared post swallow eval continue to monitor # Hypokalemia replace via IV ck Magnesium replace lytes as needed # Dementia long standing at baseline Problem List - Problems (1) Acute tracheobronchitis Code(s): J20.9 - ACUTE BRONCHITIS, UNSPECIFIED (2) Dementia Code(s): F03.90 - UNSPECIFIED DEMENTIA WITHOUT BEHAVIORAL DISTURBANCE (3) HTN (hypertension) Code(s): I10 - ESSENTIAL (PRIMARY) HYPERTENSION (4) HLD (hyperlipidemia) Code(s): E78.5 - HYPERLIPIDEMIA, UNSPECIFIED (5) BPH (benign prostatic hyperplasia) Code(s): N40.0 - BENIGN PROSTATIC HYPERPLASIA WITHOUT LOWER URINRY TRACT SYMP (6) CKD (chronic kidney disease) stage 3, GFR 30-59 ml/min Code(s): N18.3 - CHRONIC KIDNEY DISEASE, STAGE 3 (MODERATE)
[2017-11-28] MEDS: hydrALAZINE HCL 50 MG TABLET (FP) PO SCH ×2 (18:02→21:40)
[2017-11-28] MEDS: ACETAMINOPHEN 325 MG TABLET (FP) PO PRN (21:40)
[2017-11-29] MEDS: hydrALAZINE HCL 20 MG/ML VIAL IVPUSH PRN ×4 (04:24→18:31)
[2017-11-29 05:53] LABS: BASO % 0.2 % (0-2.0); HEMATOCRIT 26.3 % (35.4-49); HEMOGLOBIN 8.8 GM/dL (11.7-16.9); LYMPH % 4.7 % (8-40); MCH 31.9 pg (25.7-33.7); MCHC 33.5 g/dl (32.0-35.9); MEAN CELL VOLUME 95.2 fl (80-96); MEAN PLT VOLUME 9.2 fl (7.5-11.1); NEUT % 89.1 % (42.8-82.8); PLATELET COUNT 253 K/MM3 (134-434); RBC 2.76 M/mm3 (4.00-5.60); RDW 16.5 % (11.9-15.9); WHITE BLOOD COUNT 10.4 K/mm3 (4.0-10.0)
[2017-11-29] MEDS: hydrALAZINE HCL 50 MG TABLET (FP) PO SCH ×3 (05:57→22:35)
[2017-11-29] MEDS: ACETAMINOPHEN 325 MG TABLET (FP) PO PRN (05:57)
[2017-11-29] MEDS ORDERED: INSULIN (NOVOLOG) ASPART 100 UNITS/ML 10ML VIAL SQ ONE (06:18)
[2017-11-29 06:32] LABS: ALBUMIN 2.2 g/dl (3.4-5.0); ANION GAP 12 (8-16); BLOOD UREA NITROGEN 61 mg/dL (7-18); CALCIUM 8.6 mg/dL (8.5-10.1); CHLORIDE 120 mmol/L (98-107); CO2 23 mmol/L (21-32); CREATININE 2.6 mg/dL (0.7-1.3); MAGNESIUM 2.2 mg/dL (1.8-2.4); POTASSIUM 4.3 mmol/L (3.5-5.1); SGOT/AST 35 U/L (15-37); SGPT/ALT 35 U/L (12-78); SODIUM 155 mmol/L (136-145)
[2017-11-29 06:36] LABS: ALK PHOS 66 U/L (45-117); BILIRUBIN,TOTAL 0.4 mg/dL (0.2-1.0); TOT PROT 5.6 g/dl (6.4-8.2)
--- NOTE | 2017-11-29 06:37 | PN ---
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, Physician Chief Complaint: ID ICU followup for this 82 year old man admitted with fever 103-104 and suspected Influenza Course comlicated bu altered mental status although dementia at baseline, atrial fibrillation respirator failure pneumonia Presently on Ceftriaxone and metronidazole Responsive only to pain BIBAP - Current Medication List Current Medications: Active Medications Acetaminophen (Tylenol Suppository -) 650 mg NM Q4H PRN PRN Reason: FEVER Last Admin: 11/27/17 15:00 Dose: 650 mg Acetaminophen (Tylenol -) 650 mg PO Q4H PRN PRN Reason: fever Last Admin: 11/29/17 05:57 Dose: 650 mg Albuterol/Ipratropium (Duoneb -) 1 amp NEB Q4H PRN PRN Reason: SHORTNESS OF BREATH Albuterol/Ipratropium (Duoneb -) 1 amp NEB RQID [facility] Last Admin: 11/28/17 20:50 Dose: 1 amp Diltiazem HCl (Cardizem Injection -) 10 mg IVPUSH Q4H PRN PRN Reason: FOR HR>130 Docusate Sodium (Colace -) 100 mg PO BID [facility] Last Admin: 11/28/17 21:40 Dose: 100 mg Hydralazine HCl (Apresoline Injection -) 10 mg IVPUSH Q4H PRN PRN Reason: FOR SBP>150 Last Admin: 11/29/17 04:24 Dose: 10 mg Hydralazine HCl (Apresoline -) 50 mg PO TID [facility] Last Admin: 11/29/17 05:57 Dose: 50 mg Ceftriaxone Sodium 1 gm/ (Dextrose) 50 mls @ 100 mls/hr IVPB DAILY [facility] Last Admin: 11/28/17 10:53 Dose: 100 mls/hr Metronidazole (Flagyl 500mg Premixed Ivpb -) 500 mg in 100 mls @ 100 mls/hr IVPB Q8H-IV [facility] Last Admin: 11/29/17 04:24 Dose: 100 mls/hr Methylprednisolone Sodium Succinate (Solu-Medrol -) 40 mg IVPUSH DAILY [facility] Last Admin: 11/28/17 10:53 Dose: 40 mg Metoprolol Tartrate (Lopressor -) 100 mg PO BID [facility] Last Admin: 11/28/17 21:39 Dose: 100 mg Oseltamivir Phosphate (Tamiflu -) 30 mg PO BID [facility] Stop: 11/30/17 21:59 Last Admin: 11/28/17 22:00 Dose: 30 mg Polyethylene Glycol (Miralax (For Daily Use) -) 17 gm PO DAILY [facility] Last Admin: 11/28/17 10:54 Dose: Not Given - Objective Vital Signs: Vital Signs Temperature 98.3 F 11/29/17 02:00 Pulse Rate 96 H 11/29/17 04:00 Respiratory Rate 26 H 11/29/17 04:00 Blood Pressure 195/88 11/29/17 04:00 O2 Sat by Pulse Oximetry (%) 95 11/29/17 05:30 Constitutional: Yes: Moderate Distress, Other (unresponsive) Cardiovascular: Yes: Tachycardia, Murmur, S1, S2 Respiratory: Yes: WNL, Regular, CTA Bilaterally, Rhonchi Gastrointestinal: Yes: WNL, Normal Bowel Sounds, Soft. No: Tenderness, Tenderness, Rebound Edema: No Labs: CBC, BMP 11/29/17 05:00 INR, PTT INR 1.03 (0.82-1.09) 11/25/17 17:24 Problem List - Problems (1) Influenza Code(s): J11.1 - FLU DUE TO UNIDENTIFIED INFLUENZA VIRUS W OTH RESP MANIFEST (2) Acute respiratory failure Code(s): J96.00 - ACUTE RESPIRATORY FAILURE, UNSP W HYPOXIA OR HYPERCAPNIA (3) Pneumonia Code(s): J18.9 - PNEUMONIA, UNSPECIFIED ORGANISM (4) Streptococcal bacteremia Code(s): R78.81 - BACTEREMIA; B95.5 - UNSP STREPTOCOCCUS THE [facility] Assessment/Plan Microbiology 11/25/17 18:32 Urine - Urine Clean Catch Urine Culture - Final NO GROWTH OBTAINED 11/25/17 17:24 Blood - Peripheral Venous Blood Culture - Final Pediococcus Pentosaceus 11/26/17 12:00 Nasopharyngeal Swab Respiratory Virus (PCR) - Preliminary 11/25/17 17:12 Blood - Peripheral Venous Blood Culture - Preliminary NO GROWTH OBTAINED AFTER 72 HOURS, INCUBATION TO CONTINUE FOR 2 DAYS. Laboratory Tests 11/25/17 11/29/17 11/29/17 17:24 05:00 05:00 WBC 10.4 H RBC 2.76 L Hgb 8.8 L Plt Count 253 D BUN 61 H D Creatinine 2.6 H Creat Clearance w eGFR 23.63 Lactic Acid 1.7 Assessment Respiratory failure Evolving infiltrate since admission (issue of aspiration raised) Influenza like illness Worsening renal failure Encephalopathy secondary to metabolic factors Atrial fibrillation Pediococcus in 1 bottle ? significance but sensitive to Ceftriaxone in any case Plan Continue all current antibiotics Tamiflu and current management though prognosis seems increasingly poor Critical care time spent toda 38 minutes Patrick RINALDI
[2017-11-29 06:38] LABS: GLUCOSE,RANDOM 552 mg/dL (74-106)
--- NOTE | 2017-11-29 06:52 | RAPID ---
Physical Examination Vital Signs: Vital Signs Temperature 98.3 F 11/29/17 02:00 Pulse Rate 102 H 11/29/17 06:00 Respiratory Rate 28 H 11/29/17 06:00 Blood Pressure 193/81 11/29/17 06:00 O2 Sat by Pulse Oximetry (%) 95 11/29/17 05:30 Constitutional: Yes: Moderate Distress Respiratory: Yes: Rales, Rhonchi Gastrointestinal: Yes: WNL, Normal Bowel Sounds, Soft Neurological: Yes: Lethargy Labs: CBC, BMP 11/29/17 05:00 11/29/17 05:00 Rapid Response - Rapid Response Assessment: We were called for rapid response. The nurse reported altered mental status and elevated glucose levels to over 400. The patient was given 10 of insulin and CMP that was already ordered for the morning. Nurse practitioner covering ICU was present at bedside. Outcome: CMP revealed glu 552 but it was taken before insulin. We ordered BGm q2h.
[2017-11-29] MEDS: dilTIAZem HCL 25 MG/5 ML - 5 ML VIAL IVPUSH PRN (08:43)
[2017-11-29] MEDS: ALBUTEROL SO4 2.5/IPRATROPIUM 0.5 INH SOL 3 ML VIAL.NEB. NEB SCH ×4 (08:57→20:18)
--- NOTE | 2017-11-29 09:02 | PN ---
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 (short form) - Note 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: Patient seen and examined in the ICU. Lethargic on NIPPV. Poorly arousable. Rapid AFib. Clinically deteriorating. CXR: Bilateral worsening of airspace disease Intake & Output 11/26/17 11/27/17 11/28/17 11/29/17 23:59 23:59 23:59 23:59 Intake Total 566 756 0088 60 Balance 449 203 0714 60 Weight 136 lb 1.6 oz Last Vital Signs Temp Pulse Resp BP Pulse Ox 98.8 F 101 H 31 H 157/76 94 L 11/29/17 08:56 11/29/17 08:56 11/29/17 08:56 11/29/17 08:56 11/29/17 07:17 Active Medications Acetaminophen (Tylenol Suppository -) 650 mg SD Q4H PRN PRN Reason: FEVER Last Admin: 11/27/17 15:00 Dose: 650 mg Acetaminophen (Tylenol -) 650 mg PO Q4H PRN PRN Reason: fever Last Admin: 11/29/17 05:57 Dose: 650 mg Albuterol/Ipratropium (Duoneb -) 1 amp NEB Q4H PRN PRN Reason: SHORTNESS OF BREATH Albuterol/Ipratropium (Duoneb -) 1 amp NEB RQID [facility] Last Admin: 11/29/17 08:57 Dose: 1 amp Diltiazem HCl (Cardizem Injection -) 10 mg IVPUSH Q4H PRN PRN Reason: FOR HR>130 Last Admin: 11/29/17 08:43 Dose: 10 mg Docusate Sodium (Colace -) 100 mg PO BID [facility] Last Admin: 11/28/17 21:40 Dose: 100 mg Hydralazine HCl (Apresoline Injection -) 10 mg IVPUSH Q4H PRN PRN Reason: FOR SBP>150 Last Admin: 11/29/17 08:29 Dose: 10 mg Hydralazine HCl (Apresoline -) 50 mg PO TID [facility] Last Admin: 11/29/17 05:57 Dose: 50 mg Ceftriaxone Sodium 1 gm/ (Dextrose) 50 mls @ 100 mls/hr IVPB DAILY [facility] Last Admin: 11/28/17 10:53 Dose: 100 mls/hr Metronidazole (Flagyl 500mg Premixed Ivpb -) 500 mg in 100 mls @ 100 mls/hr IVPB Q8H-IV [facility] Last Admin: 11/29/17 04:24 Dose: 100 mls/hr Methylprednisolone Sodium Succinate (Solu-Medrol -) 40 mg IVPUSH DAILY [facility] Last Admin: 11/28/17 10:53 Dose: 40 mg Metoprolol Tartrate (Lopressor -) 100 mg PO BID [facility] Last Admin: 11/28/17 21:39 Dose: 100 mg Oseltamivir Phosphate (Tamiflu -) 30 mg PO BID [facility] Stop: 11/30/17 21:59 Last Admin: 11/28/17 22:00 Dose: 30 mg Polyethylene Glycol (Miralax (For Daily Use) -) 17 gm PO DAILY [facility] Last Admin: 11/28/17 10:54 Dose: Not Given Constitutional: Yes: Poorly responsive on NIPPV Eyes: Yes: Conjunctiva Clear, EOM Intact HENT: Yes: Atraumatic, Normocephalic Neck: Yes: Supple, Trachea Midline Cardiovascular: Yes: Tachycardia Respiratory: Yes: Accessory Muscle Use, NIPPV, Rhonchi, SOB, Tachypnea, Wheezes ...Inspection: Yes: WNL ...Clubbing: No Gastrointestinal: Yes: Normal Bowel Sounds, Soft Renal/: Yes: WNL Breast(s): Yes: WNL Musculoskeletal: Yes: WNL Extremities: Yes: WNL Edema: No Peripheral Pulses WNL: Yes Integumentary: Yes: WNL Neurological: Yes: Poorly responsive ...Motor Strength: WNL Psychiatric: Yes: Alert Labs: Laboratory Results - last 24 hr 11/29/17 11/29/17 05:00 05:00 WBC 10.4 H RBC 2.76 L Hgb 8.8 L Hct 26.3 L MCV 95.2 MCH 31.9 MCHC 33.5 RDW 16.5 H Plt Count 253 D MPV 9.2 Neutrophils % 89.1 H Lymphocytes % 4.7 L D Monocytes % 6.0 Eosinophils % 0.0 D Basophils % 0.2 Sodium 155 H Potassium 4.3 Chloride 120 H Carbon Dioxide 23 Anion Gap 12 BUN 61 H D Creatinine 2.6 H Creat Clearance w eGFR 23.63 Random Glucose 552 H* D Calcium 8.6 Magnesium 2.2 D Total Bilirubin 0.4 D AST 35 D ALT 35 Alkaline Phosphatase 66 Total Protein 5.6 L Albumin 2.2 L D Problem List - Problems (1) Acute respiratory failure Code(s): J96.00 - ACUTE RESPIRATORY FAILURE, UNSP W HYPOXIA OR HYPERCAPNIA (2) BPH (benign prostatic hyperplasia) Code(s): N40.0 - BENIGN PROSTATIC HYPERPLASIA WITHOUT LOWER URINRY TRACT SYMP (3) CKD (chronic kidney disease) stage 3, GFR 30-59 ml/min Code(s): N18.3 - CHRONIC KIDNEY DISEASE, STAGE 3 (MODERATE) (4) Dementia Code(s): F03.90 - UNSPECIFIED DEMENTIA WITHOUT BEHAVIORAL DISTURBANCE (5) Fever Code(s): R50.9 - FEVER, UNSPECIFIED Qualifiers: Fever type: unspecified Qualified Code(s): R50.9 - Fever, unspecified (6) HLD (hyperlipidemia) Code(s): E78.5 - HYPERLIPIDEMIA, UNSPECIFIED (7) HTN (hypertension) Code(s): I10 - ESSENTIAL (PRIMARY) HYPERTENSION (8) Influenza Code(s): J11.1 - FLU DUE TO UNIDENTIFIED INFLUENZA VIRUS W OTH RESP MANIFEST (9) Pneumonia Code(s): J18.9 - PNEUMONIA, UNSPECIFIED ORGANISM Assessment/Plan Cardizem drip NIPPV Support: Depending on family GOC: would prefer to place on 100% NRBM ABX coverage Aspiration precautions Follow CXR BD TX D/C steroids Strict & O Will need to discuss further GOC with HUNTER Aguayo Critical care time spent in reviewing chart, evaluating patient and formulating plan - 36 minutes. Problem List - Problems (1) Acute respiratory failure Code(s): J96.00 - ACUTE RESPIRATORY FAILURE, UNSP W HYPOXIA OR HYPERCAPNIA (2) BPH (benign prostatic hyperplasia) Code(s): N40.0 - BENIGN PROSTATIC HYPERPLASIA WITHOUT LOWER URINRY TRACT SYMP (3) CKD (chronic kidney disease) stage 3, GFR 30-59 ml/min Code(s): N18.3 - CHRONIC KIDNEY DISEASE, STAGE 3 (MODERATE) (4) Dementia Code(s): F03.90 - UNSPECIFIED DEMENTIA WITHOUT BEHAVIORAL DISTURBANCE (5) Fever Code(s): R50.9 - FEVER, UNSPECIFIED Qualifiers: Fever type: unspecified Qualified Code(s): R50.9 - Fever, unspecified (6) HLD (hyperlipidemia) Code(s): E78.5 - HYPERLIPIDEMIA, UNSPECIFIED (7) HTN (hypertension) Code(s): I10 - ESSENTIAL (PRIMARY) HYPERTENSION (8) Influenza Code(s): J11.1 - FLU DUE TO UNIDENTIFIED INFLUENZA VIRUS W OTH RESP MANIFEST (9) Pneumonia Code(s): J18.9 - PNEUMONIA, UNSPECIFIED ORGANISM
[2017-11-29] MEDS ORDERED: DILTIAZEM INJECTION 125 MG in DEXTROSE 5%-WATER - 100 ML IVPB SCH (09:15)
[2017-11-29] MEDS: DOCUSATE SODIUM 100 MG CAPSULE (FP) PO SCH ×2 (09:41→22:36)
[2017-11-29] MEDS: POLYETHYLENE GLYCOL 3350 119 GM BTL PO SCH (09:55)
[2017-11-29] MEDS ORDERED: cefTRIAXone SODIUM 1 GM VIAL ONE ×2 (09:57→10:41)
[2017-11-29] MEDS ORDERED: DEXTROSE 5%-WATER - 50 ML IVPB ONE (09:57)
[2017-11-29] MEDS: INSULIN SLIDING SCALE (NOVOLOG) 1 VIAL SQ SCH ×3 (10:03→22:42)
[2017-11-29] MEDS: METOPROLOL TARTRATE 50 MG TABLET (FP) PO SCH ×2 (11:06→22:36)
[2017-11-29] MEDS ORDERED: dilTIAZem HCL 25 MG/5 ML - 5 ML VIAL ONE ×2 (11:32→21:39)
--- NOTE | 2017-11-29 11:42 | PN ---
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 (short form) - Note 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: s: awake, not comunicating, not taking po meds, on bipap still, overnight with rvr, now in sr o: Vital Signs Temp 98.8 F 11/29/17 08:56 Pulse 101 H 11/29/17 10:00 Resp 27 H 11/29/17 10:00 BP 176/91 11/29/17 10:00 Pulse Ox 95 11/29/17 09:08 Intake & Output 11/28/17 11/28/17 11/29/17 11:59 23:59 11:59 Intake Total 290 880 160 Balance 290 880 160 Weight 136 lb 1.6 oz Intake: IV 50 30 Cardizem Injection - 125 50 30 mg In D5w - 100 ml @ 5 MG /HR 5 mls/hr IVPB TITR [facility] Rx#:[id number] IVPB 250 100 Oral 240 600 60 Other: Voiding Method Incontinent Incontinent Incontinent # Unmeasured Voids Void 1 1 1 Bowel Movement Yes Yes: huyge loose brown # Bowel Movements 1 1 nad no jvd on bipap coarse bs bl, weak eff lethargic no jaundice diaphoresis abd nd pos bs rrr s1s2 no mrg no le e/c/c Current Medications Generic Name Dose Route Start Last Admin Trade Name Freq PRN Reason Stop Dose Admin Acetaminophen 650 mg 11/26/17 15:35 11/27/17 15:00 Tylenol Suppository - MA 650 mg Q4H PRN Administration FEVER Acetaminophen 650 mg 11/28/17 00:04 11/29/17 05:57 Tylenol - PO 650 mg Q4H PRN Administration fever Albuterol/Ipratropium 1 amp 11/28/17 00:04 Duoneb - NEB Q4H PRN SHORTNESS OF BREATH Albuterol/Ipratropium 1 amp 11/28/17 08:00 11/29/17 11:29 Duoneb - NEB 1 amp RQID [facility] Administration Diltiazem HCl 10 mg 11/27/17 18:58 11/29/17 08:43 Cardizem Injection - IVPUSH 10 mg Q4H PRN Administration FOR HR>130 Docusate Sodium 100 mg 11/28/17 10:00 11/29/17 09:41 Colace - PO Not Given BID SH[facility] Hydralazine HCl 10 mg 11/27/17 20:01 11/29/17 08:29 Apresoline Injection - IVPUSH 10 mg Q4H PRN Administration FOR SBP>150 Hydralazine HCl 100 mg 11/29/17 09:25 Apresoline - PO TID SH[facility] Metronidazole 500 mg in 100 mls @ 100 mls/hr 11/28/17 10:30 11/29/17 10:04 Flagyl 500mg Premixed Ivpb - IVPB 100 mls/hr Q8H-IV [facility] Administration Diltiazem HCl 125 mg/ Dextrose 125 mls @ 5 mls/hr 11/29/17 09:15 IVPB TITR SHAY Protocol 5 MG/HR Ceftriaxone Sodium 1 gm/ 100 mls @ 200 mls/hr 11/29/17 12:00 11/29/17 11:16 Sodium Chloride IVPB 200 mls/hr DAILY [facility] Administration Insulin Aspart 1 vial 11/29/17 11:00 11/29/17 10:03 Novolog Vial Sliding Scale - SQ 14 units ACHS SHAY Administration Protocol Metoprolol Tartrate 100 mg 11/27/17 20:15 11/29/17 11:06 Lopressor - PO Not Given BID SH[facility] Oseltamivir Phosphate 30 mg 11/28/17 10:00 11/28/17 22:00 Tamiflu - PO 11/30/17 21:59 30 mg BID [facility] Administration Polyethylene Glycol 17 gm 11/28/17 10:00 11/29/17 09:55 Miralax (For Daily Use) - PO Not Given DAILY [facility] Laboratory Last Values WBC 10.4 K/mm3 (4.0-10.0) H 11/29/17 05:00 RBC 2.76 M/mm3 (4.00-5.60) L 11/29/17 05:00 Hgb 8.8 GM/dL (11.7-16.9) L 11/29/17 05:00 Hct 26.3 % (35.4-49) L 11/29/17 05:00 MCV 95.2 fl (80-96) 11/29/17 05:00 MCH 31.9 pg (25.7-33.7) 11/29/17 05:00 MCHC 33.5 g/dl (32.0-35.9) 11/29/17 05:00 RDW 16.5 % (11.9-15.9) H 11/29/17 05:00 Plt Count 253 K/MM3 (134-434) D 11/29/17 05:00 MPV 9.2 fl (7.5-11.1) 11/29/17 05:00 Neutrophils % 89.1 % (42.8-82.8) H 11/29/17 05:00 Lymphocytes % 4.7 % (8-40) L D 11/29/17 05:00 Monocytes % 6.0 % (3.8-10.2) 11/29/17 05:00 Eosinophils % 0.0 % (0-4.5) D 11/29/17 05:00 Basophils % 0.2 % (0-2.0) 11/29/17 05:00 PT with INR 11.60 SEC (9.98-11.88) 11/25/17 17:24 INR 1.03 (0.82-1.09) 11/25/17 17:24 PTT (Actin FS) 31.1 SECONDS (26.9-34.4) 11/25/17 17:24 Anticoagulation Therapy No Result Required. 11/26/17 01:55 Puncture Site Right radial 11/26/17 01:55 ABG pH 7.27 (7.35-7.45) L 11/26/17 01:55 ABG pCO2 at Pt Temp 43.2 mmHg (35-45) 11/26/17 01:55 ABG pO2 at Pt Temp 81.1 mmHg (68-100) 11/26/17 01:55 ABG HCO3 19.2 meq/L (22-26) L 11/26/17 01:55 ABG O2 Sat (Measured) 92.9 % (90-98.9) 11/26/17 01:55 ABG O2 Content 15.0 % vol (15-22) 11/26/17 01:55 ABG Base Excess -7.0 meq/l (-2-2) L 11/26/17 01:55 Shadi Test Positive 11/26/17 01:55 VBG pH 7.44 (7.32-7.42) H 11/25/17 17:56 POC VBG pCO2 31.3 mmHg (38-52) L 11/25/17 17:56 POC VBG pO2 36.6 mmHg (28-48) 11/25/17 17:56 Mixed VBG HCO3 21.1 meq/L (19-25) 11/25/17 17:56 O2 Delivery Device No Result Required. 11/26/17 01:55 Oxygen Flow Rate 100% 11/26/17 01:55 Vent Mode No Result Required. 11/26/17 01:55 Vent Rate No Result Required. 11/26/17 01:55 Mechanical Rate No Result Required. 11/26/17 01:55 Pressure Support Vent No Result Required. 11/26/17 01:55 Sodium 155 mmol/L (136-145) H 11/29/17 05:00 Potassium 4.3 mmol/L (3.5-5.1) 11/29/17 05:00 Chloride 120 mmol/L (98-107) H 11/29/17 05:00 Carbon Dioxide 23 mmol/L (21-32) 11/29/17 05:00 Anion Gap 12 (8-16) 11/29/17 05:00 BUN 61 mg/dL (7-18) H D 11/29/17 05:00 Creatinine 2.6 mg/dL (0.7-1.3) H 11/29/17 05:00 Creat Clearance w eGFR 23.63 (>60) 11/29/17 05:00 POC Glucometer > 400 UNITS (80-120) 11/29/17 08:28 Random Glucose 405 mg/dL (74-106) H* D 11/29/17 08:20 Lactic Acid 1.7 mmol/L (0.0-2.0) 11/25/17 17:24 Calcium 8.6 mg/dL (8.5-10.1) 11/29/17 05:00 Magnesium 2.2 mg/dL (1.8-2.4) D 11/29/17 05:00 Total Bilirubin 0.4 mg/dL (0.2-1.0) D 11/29/17 05:00 AST 35 U/L (15-37) D 11/29/17 05:00 ALT 35 U/L (12-78) 11/29/17 05:00 Alkaline Phosphatase 66 U/L (45-117) 11/29/17 05:00 Troponin I 0.29 ng/ml (0.00-0.05) H D 11/26/17 05:35 Total Protein 5.6 g/dl (6.4-8.2) L 11/29/17 05:00 Albumin 2.2 g/dl (3.4-5.0) L D 11/29/17 05:00 Urine Color Red 11/25/17 18:32 Urine Appearance Cloudy 11/25/17 18:32 Urine pH 6.0 (5.0-8.0) 11/25/17 18:32 Ur Specific [place] 1.014 (1.001-1.035) 11/25/17 18:32 Urine Protein 2+ (NEGATIVE) H 11/25/17 18:32 Urine Glucose (UA) 1+ (NEGATIVE) H 11/25/17 18:32 Urine Ketones Negative (NEGATIVE) 11/25/17 18:32 Urine Blood 3+ (NEGATIVE) H 11/25/17 18:32 Urine Nitrite Negative (NEGATIVE) 11/25/17 18:32 Urine Bilirubin Negative (NEGATIVE) 11/25/17 18:32 Urine Urobilinogen Negative mg/dL (0.2-1.0) 11/25/17 18:32 Ur Leukocyte Esterase Negative (NEGATIVE) 11/25/17 18:32 Urine WBC (Auto) None /hpf (3-5) 11/25/17 18:32 Urine RBC (Auto) 4300 /hpf (0-3) 11/25/17 18:32 Urine Bacteria Rare /hpf (NONE SEEN) 11/25/17 18:32 Stool Occult Blood Negative (NEGATIVE) 11/25/17 17:24 ecg: afib rvr, nl qtc, no ischemic changes tele: sr now, afib with rvr overnight echo 11/2017: nl lv/rv, mild lvh, mild lae, mild mr/tr/ar/pr cxr: worsening infiltrates, congestion est cct 35 mins a/p: 82 m hx dementia, htn, hld, ckd sent from april for fever. pafib: -in sr now, episodes of rvr at times. unable to take po meds so would cont with iv dilt pushes. if persistent afib/rvr can resume dilt gtt -chadsvasc warrants ac but pt with anemia here (unknown baseline) and dementia so unclear if he is good candidate for ac -echo unremarkable htn: -not taking po, cont prn iv hydralazine hld: -resume statin when taking po dk, ckd: -cr up again today, likely from, sepsis -cont abx uri, flu: -abx per PMD -?asp pna now as well trop elevation: -borderline trop elevation, does not appear to be acs -echo unremarkable
[2017-11-29] MEDS ORDERED: CEFTRIAXONE 1 GM in SODIUM CHLORIDE 100 ML IVPB SCH (12:00)
[2017-11-29] MEDS ORDERED: PT OWN MED DRAWER 7, Y5N ONE ×2 (12:07→22:44)
[2017-11-29] MEDS: CEFTRIAXONE 1 GM in DEXTROSE 5%-WATER - 50 ML IVPB SCH (13:18)
--- NOTE | 2017-11-29 14:54 | PN ---
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 (short form) - Note 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: seen and examined in room on bipap / unresponsive / Vital Signs Period Temp Pulse Resp BP Sys/Cannon Pulse Ox Last 24 Hr 98.3 F-99.2 F 80-113 18-31 156-214/49-104 90-[address] neck supple heart s1/s2 Luns scattered rhonchi right > left abd soft non tender ext no edema CBC, BMP 11/29/17 05:00 11/29/17 08:20 CBC, BMP 11/28/17 05:06 11/28/17 05:06 CBC, BMP 11/27/17 08:24 11/27/17 08:24 CXR - Right infiltrate / congestion Microbiology 11/25/17 17:12 Blood - Peripheral Venous Blood Culture - Preliminary NO GROWTH OBTAINED AFTER 72 HOURS, INCUBATION TO CONTINUE FOR 2 DAYS. 11/25/17 17:24 Blood - Peripheral Venous Blood Culture - Final Pediococcus Pentosaceus 11/26/17 12:00 Nasopharyngeal Swab Respiratory Virus (PCR) - Preliminary 11/25/17 18:32 Urine - Urine Clean Catch Urine Culture - Final NO GROWTH OBTAINED 11/26/17 12:00 Nasopharyngeal Swab Influenza Types A,B Antigen (JEREMY) - Final 11/26/17 12:00 Nasopharyngeal Swab - Final Active Medications Acetaminophen (Tylenol Suppository -) 650 mg ID Q4H PRN PRN Reason: FEVER Last Admin: 11/27/17 15:00 Dose: 650 mg Acetaminophen (Tylenol -) 650 mg PO Q4H PRN PRN Reason: fever Last Admin: 11/29/17 05:57 Dose: 650 mg Albuterol/Ipratropium (Duoneb -) 1 amp NEB Q4H PRN PRN Reason: SHORTNESS OF BREATH Albuterol/Ipratropium (Duoneb -) 1 amp NEB RQID [facility]AY Last Admin: 11/29/17 11:29 Dose: 1 amp Diltiazem HCl (Cardizem Injection -) 10 mg IVPUSH Q4H PRN PRN Reason: FOR HR>130 Last Admin: 11/29/17 08:43 Dose: 10 mg Docusate Sodium (Colace -) 100 mg PO BID SHAY Last Admin: 11/29/17 09:41 Dose: Not Given Hydralazine HCl (Apresoline Injection -) 10 mg IVPUSH Q4H PRN PRN Reason: FOR SBP>150 Last Admin: 11/29/17 08:29 Dose: 10 mg Hydralazine HCl (Apresoline -) 100 mg PO TID [facility] Last Admin: 11/29/17 13:16 Dose: Not Given Metronidazole (Flagyl 500mg Premixed Ivpb -) 500 mg in 100 mls @ 100 mls/hr IVPB Q8H-IV [facility] Last Admin: 11/29/17 10:04 Dose: 100 mls/hr Diltiazem HCl 125 mg/ Dextrose 125 mls @ 5 mls/hr IVPB TITR SHAY; 5 MG/HR PRN Reason: Protocol Last Admin: 11/29/17 12:30 Dose: 5 mg/hr, 5 mls/hr Ceftriaxone Sodium 1 gm/ (Sodium Chloride) 100 mls @ 200 mls/hr IVPB DAILY [facility] Last Admin: 11/29/17 11:16 Dose: 200 mls/hr Insulin Aspart (Novolog Vial Sliding Scale -) 1 vial SQ ACHS SHAY PRN Reason: Protocol Last Admin: 11/29/17 10:03 Dose: 14 units Metoprolol Tartrate (Lopressor -) 100 mg PO BID [facility] Last Admin: 11/29/17 11:06 Dose: Not Given Oseltamivir Phosphate (Tamiflu -) 30 mg PO BID [facility] Stop: 11/30/17 21:59 Last Admin: 11/28/17 22:00 Dose: 30 mg Polyethylene Glycol (Miralax (For Daily Use) -) 17 gm PO DAILY [facility] Last Admin: 11/29/17 09:55 Dose: Not Given telemetry -- in RVR last night - now in sinus although had swallow eval unclear if he will be able to take PO meds now unresponsive - will need to keep NPO # + blood c/s - follow up cultures discussed with ID on Rochepin and Tamiflu emperic tx for PNA and influenza # PAF A fib with RVR - no prior hx IV BB as tolerated for rate control until able to take PO Telemetry ---currently in SR risk of a/c to discuss with Cardio and family --defer a/c # Inc TNI 2/2 to demand Fever / AFib RVR discuss with cardio unlikely ACS will trend #CKD will trend # HTN on multiple home meds will resume once cleared post swallow eval continue to monitor # Hypokalemia replace via IV ck Magnesium replace lytes as needed # Dementia long standing at baseline Problem List - Problems (1) Acute tracheobronchitis Code(s): J20.9 - ACUTE BRONCHITIS, UNSPECIFIED (2) Dementia Code(s): F03.90 - UNSPECIFIED DEMENTIA WITHOUT BEHAVIORAL DISTURBANCE (3) HTN (hypertension) Code(s): I10 - ESSENTIAL (PRIMARY) HYPERTENSION (4) HLD (hyperlipidemia) Code(s): E78.5 - HYPERLIPIDEMIA, UNSPECIFIED (5) BPH (benign prostatic hyperplasia) Code(s): N40.0 - BENIGN PROSTATIC HYPERPLASIA WITHOUT LOWER URINRY TRACT SYMP (6) CKD (chronic kidney disease) stage 3, GFR 30-59 ml/min Code(s): N18.3 - CHRONIC KIDNEY DISEASE, STAGE 3 (MODERATE)
[2017-11-29] MEDS ORDERED: METOPROLOL TARTRATE 5 MG/5 ML VIAL IVPUSH PRN (15:34)
[2017-11-29] MEDS ORDERED: METOPROLOL TARTRATE 5 MG/5 ML VIAL IVPUSH ONE (16:00)
[2017-11-29] MEDS: OSELTAMIVIR PHOSPHATE 30 MG CAPSULE PO SCH ×2 (16:42→22:50)
[2017-11-29] MEDS: ACETAMINOPHEN 1000 MG/100 ML VIAL (NON FORMULARY) IVPB PRN (17:48)
[2017-11-29] MEDS: METOPROLOL TARTRATE 5 MG/5 ML VIAL IVPUSH PRN (19:27)
[2017-11-30] MEDS: hydrALAZINE HCL 50 MG TABLET (FP) PO SCH ×3 (06:00→22:57)
[2017-11-30] MEDS: INSULIN SLIDING SCALE (NOVOLOG) 1 VIAL SQ SCH ×4 (06:03→22:59)
[2017-11-30] MEDS: METOPROLOL TARTRATE 5 MG/5 ML VIAL IVPUSH PRN ×2 (06:04→23:00)
[2017-11-30 06:18] LABS: HEMATOCRIT 27.2 % (35.4-49); HEMOGLOBIN 8.9 GM/dL (11.7-16.9); MCH 31.4 pg (25.7-33.7); MCHC 32.9 g/dl (32.0-35.9); MEAN CELL VOLUME 95.6 fl (80-96); MEAN PLT VOLUME 9.6 fl (7.5-11.1); PLATELET COUNT 332 K/MM3 (134-434); RBC 2.85 M/mm3 (4.00-5.60); RDW 16.7 % (11.9-15.9); WHITE BLOOD COUNT 12.1 K/mm3 (4.0-10.0)
[2017-11-30 06:42] LABS: ALBUMIN 2.3 g/dl (3.4-5.0); ANION GAP 12 (8-16); BILIRUBIN,TOTAL 0.6 mg/dL (0.2-1.0); BLOOD UREA NITROGEN 80 mg/dL (7-18); CALCIUM 8.7 mg/dL (8.5-10.1); CHLORIDE 127 mmol/L (98-107); CO2 22 mmol/L (21-32); CREATININE 2.9 mg/dL (0.7-1.3); GLUCOSE,RANDOM 228 mg/dL (74-106); POTASSIUM 4.2 mmol/L (3.5-5.1); SGOT/AST 25 U/L (15-37); SGPT/ALT 29 U/L (12-78); TOT PROT 5.4 g/dl (6.4-8.2)
[2017-11-30 06:43] LABS: ALK PHOS 61 U/L (45-117)
--- NOTE | 2017-11-30 07:10 | PN ---
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, Physician Chief Complaint: ID Intermittently responsive per nursing staff Still on BIPAP mask and febrile 101 overnight despite Ceftriaxone and Metronidazole for PNA which he has been on - Current Medication List Current Medications: Active Medications Acetaminophen (Ofirmev Injection -) 1,000 mg IVPB Q6H PRN PRN Reason: FEVER Last Admin: 11/29/17 17:48 Dose: 1,000 mg Albuterol/Ipratropium (Duoneb -) 1 amp NEB Q4H PRN PRN Reason: SHORTNESS OF BREATH Albuterol/Ipratropium (Duoneb -) 1 amp NEB RQID [facility] Last Admin: 11/29/17 20:18 Dose: 1 amp Diltiazem HCl (Cardizem Injection -) 10 mg IVPUSH Q4H PRN PRN Reason: FOR HR>130 Last Admin: 11/29/17 08:43 Dose: 10 mg Docusate Sodium (Colace -) 100 mg PO BID [facility] Last Admin: 11/29/17 22:36 Dose: 100 mg Hydralazine HCl (Apresoline Injection -) 10 mg IVPUSH Q4H PRN PRN Reason: FOR SBP>150 Last Admin: 11/29/17 18:31 Dose: 10 mg Hydralazine HCl (Apresoline -) 100 mg PO TID [facility] Last Admin: 11/30/17 06:00 Dose: Not Given Metronidazole (Flagyl 500mg Premixed Ivpb -) 500 mg in 100 mls @ 100 mls/hr IVPB Q8H-IV [facility] Last Admin: 11/30/17 02:30 Dose: 100 mls/hr Diltiazem HCl 125 mg/ Dextrose 125 mls @ 5 mls/hr IVPB TITR SHAY; 5 MG/HR PRN Reason: Protocol Last Titration: 11/29/17 19:00 Dose: 12 mg/hr, 12 mls/hr Ceftriaxone Sodium 1 gm/ (Sodium Chloride) 100 mls @ 200 mls/hr IVPB DAILY [facility] Last Admin: 11/29/17 11:16 Dose: 200 mls/hr Insulin Aspart (Novolog Vial Sliding Scale -) 1 vial SQ ACHS [facility] PRN Reason: Protocol Last Admin: 11/30/17 06:03 Dose: 8 units Metoprolol Tartrate (Lopressor -) 100 mg PO BID [facility] Last Admin: 11/29/17 22:36 Dose: 100 mg Metoprolol Tartrate (Lopressor Injection -) 5 mg IVPUSH Q4H PRN PRN Reason: TACHYCARDIA Last Admin: 11/30/17 06:04 Dose: 5 mg Oseltamivir Phosphate (Tamiflu -) 30 mg PO BID [facility] Stop: 11/30/17 21:59 Last Admin: 11/29/17 22:50 Dose: 30 mg Polyethylene Glycol (Miralax (For Daily Use) -) 17 gm PO DAILY [facility] Last Admin: 11/29/17 09:55 Dose: Not Given - Objective Vital Signs: Vital Signs Temperature 99.5 F 11/30/17 02:00 Pulse Rate 135 H 11/30/17 06:04 Respiratory Rate 28 H 11/30/17 02:00 Blood Pressure 144/84 11/30/17 06:04 O2 Sat by Pulse Oximetry (%) 98 11/30/17 06:35 Constitutional: Yes: Moderate Distress Cardiovascular: Yes: Tachycardia, S1, S2 Respiratory: Yes: WNL, Regular, CTA Bilaterally, Rhonchi Gastrointestinal: Yes: WNL, Normal Bowel Sounds, Soft. No: Tenderness, Tenderness, Epigastrium Edema: No Labs: CBC, BMP 11/30/17 05:02 INR, PTT INR 1.03 (0.82-1.09) 11/25/17 17:24 Problem List - Problems (1) Influenza Code(s): J11.1 - FLU DUE TO UNIDENTIFIED INFLUENZA VIRUS W OTH RESP MANIFEST (2) Acute respiratory failure Code(s): J96.00 - ACUTE RESPIRATORY FAILURE, UNSP W HYPOXIA OR HYPERCAPNIA (3) Pneumonia Code(s): J18.9 - PNEUMONIA, UNSPECIFIED ORGANISM (4) Streptococcal bacteremia Code(s): R78.81 - BACTEREMIA; B95.5 - UNSP STREPTOCOCCUS [facility]/Plan Microbiology 11/26/17 12:00 Nasopharyngeal Swab Influenza Types A,B Antigen (JEREMY) - Final 11/26/17 12:00 Nasopharyngeal Swab - Final 11/25/17 18:32 Urine - Urine Clean Catch Urine Culture - Final NO GROWTH OBTAINED 11/25/17 17:24 Blood - Peripheral Venous Blood Culture - Final Pediococcus Pentosaceus 11/26/17 12:00 Nasopharyngeal Swab Respiratory Virus (PCR) - Preliminary 11/25/17 17:12 Blood - Peripheral Venous Blood Culture - Preliminary NO GROWTH OBTAINED AFTER 96 HOURS, INCUBATION TO CONTINUE FOR 1 DAYS. 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
[2017-11-30 07:48] LABS: SODIUM 161 mmol/L (136-145)
[2017-11-30] MEDS: ALBUTEROL SO4 2.5/IPRATROPIUM 0.5 INH SOL 3 ML VIAL.NEB. NEB SCH ×4 (08:04→20:50)
[2017-11-30] MEDS ORDERED: DEXTROSE 5%-WATER - 1,000 ML IV SCH ×2 (08:45→21:36)
[2017-11-30] MEDS ORDERED: VANCOMYCIN 1,000 MG in DEXTROSE 5%-WATER - 250 ML IVPB ONE (09:00)
[2017-11-30] MEDS: DOCUSATE SODIUM 100 MG CAPSULE (FP) PO SCH ×2 (10:20→22:57)
[2017-11-30] MEDS: POLYETHYLENE GLYCOL 3350 119 GM BTL PO SCH (10:20)
[2017-11-30] MEDS ORDERED: PT OWN MED DRAWER 7, Y5N ONE ×3 (10:23→20:23)
[2017-11-30] MEDS: PIPERACILLIN/TAZOB 2.25 GM 2.25 GM in DEXTROSE 5%-WATER - 50 ML IVPB SCH ×3 (10:26→20:26)
[2017-11-30] MEDS: METOPROLOL TARTRATE 50 MG TABLET (FP) PO SCH ×2 (10:27→22:58)
[2017-11-30] MEDS: hydrALAZINE HCL 20 MG/ML VIAL IVPUSH PRN ×3 (10:28→23:00)
[2017-11-30] MEDS: OSELTAMIVIR PHOSPHATE 30 MG CAPSULE PO SCH (10:29)
--- NOTE | 2017-11-30 11:39 | PN ---
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 (short form) - Note 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: CC: pna/sepsis s: endorses sob. no cp, palps, dizziness. appears fatigued. Not receiving po hydralazine b/c remains on cardizem drip with additional PO lopressor. Also s/p IV lopressor x 1. Getting IV hydralazine prn for hypertension. Still febrile last night. Na continues to rise. low rate of D5 IVF started today. o: Current Medications Acetaminophen (Ofirmev Injection -) 1,000 mg IVPB Q6H PRN PRN Reason: FEVER Last Admin: 11/29/17 17:48 Dose: 1,000 mg Albuterol/Ipratropium (Duoneb -) 1 amp NEB Q4H PRN PRN Reason: SHORTNESS OF BREATH Albuterol/Ipratropium (Duoneb -) 1 amp NEB RQID [facility] Last Admin: 11/30/17 08:04 Dose: 1 amp Diltiazem HCl (Cardizem Injection -) 10 mg IVPUSH Q4H PRN PRN Reason: FOR HR>130 Last Admin: 11/29/17 08:43 Dose: 10 mg Docusate Sodium (Colace -) 100 mg PO BID [facility] Last Admin: 11/30/17 10:20 Dose: Not Given Hydralazine HCl (Apresoline Injection -) 10 mg IVPUSH Q4H PRN PRN Reason: FOR SBP>150 Last Admin: 11/30/17 10:28 Dose: 10 mg Hydralazine HCl (Apresoline -) 100 mg PO TID [facility] Last Admin: 11/30/17 06:00 Dose: Not Given Diltiazem HCl 125 mg/ Dextrose 125 mls @ 5 mls/hr IVPB TITR SHAY; 5 MG/HR PRN Reason: Protocol Last Titration: 11/30/17 07:00 Dose: 10 mg/hr, 10 mls/hr Piperacillin Sod/Tazobactam (Sod 2.25 gm/ Dextrose) 50 mls @ 100 mls/hr IVPB Q6H-IV [facility] PRN Reason: Protocol Last Admin: 11/30/17 10:26 Dose: 100 mls/hr Dextrose (D5w -) 1,000 mls @ 42 mls/hr IV ASDIR [facility]AY Last Admin: 11/30/17 10:00 Dose: 42 mls/hr Insulin Aspart (Novolog Vial Sliding Scale -) 1 vial SQ ACHS [facility] PRN Reason: Protocol Last Admin: 11/30/17 06:03 Dose: 8 units Metoprolol Tartrate (Lopressor -) 100 mg PO BID [facility] Last Admin: 11/30/17 10:27 Dose: 100 mg Metoprolol Tartrate (Lopressor Injection -) 5 mg IVPUSH Q4H PRN PRN Reason: TACHYCARDIA Last Admin: 11/30/17 06:04 Dose: 5 mg Oseltamivir Phosphate (Tamiflu -) 30 mg PO BID [facility] Stop: 11/30/17 21:59 Last Admin: 11/30/17 10:29 Dose: 30 mg Polyethylene Glycol (Miralax (For Daily Use) -) 17 gm PO DAILY [facility] Last Admin: 11/30/17 10:20 Dose: Not Given Vital Signs - 24 hr 11/29/17 11/29/17 11/29/17 12:00 14:00 14:43 Temperature 100.4 F H Pulse Rate 110 H 108 H 113 H Respiratory 18 28 H 27 H Rate Blood Pressure 197/104 187/86 204/90 O2 Sat by Pulse 99 99 Oximetry (%) 11/29/17 11/29/17 11/29/17 14:51 15:02 15:47 Temperature Pulse Rate 108 H 113 H 160 H Respiratory Rate Blood Pressure 196/102 193/86 193/86 O2 Sat by Pulse Oximetry (%) 11/29/17 11/29/17 11/29/17 16:00 16:24 18:00 Temperature 100.6 F H 101.0 F H Pulse Rate 102 H 98 H Respiratory Rate Blood Pressure 174/72 201/59 O2 Sat by Pulse 99 Oximetry (%) 11/29/17 11/29/17 11/29/17 18:39 19:27 20:00 Temperature 99.6 F Pulse Rate 153 H 140 H Respiratory 22 Rate Blood Pressure 178/88 170/74 155/82 O2 Sat by Pulse Oximetry (%) 11/29/17 11/29/17 11/29/17 21:00 21:19 22:00 Temperature 99.5 F Pulse Rate 137 H Respiratory 28 H 20 Rate Blood Pressure 132/56 O2 Sat by Pulse 98 99 Oximetry (%) 11/29/17 11/30/17 11/30/17 23:32 00:00 02:00 Temperature 99.5 F Pulse Rate 134 H 131 H Respiratory 22 28 H Rate Blood Pressure 133/80 154/77 O2 Sat by Pulse 99 Oximetry (%) 11/30/17 11/30/17 11/30/17 02:05 04:00 04:30 Temperature Pulse Rate 135 H Respiratory 25 H Rate Blood Pressure 187/78 O2 Sat by Pulse 100 100 Oximetry (%) 11/30/17 11/30/17 11/30/17 06:00 06:04 06:35 Temperature 99.4 F Pulse Rate 135 H 135 H Respiratory 20 Rate Blood Pressure 144/84 144/84 O2 Sat by Pulse 98 Oximetry (%) 11/30/17 11/30/17 11/30/17 07:00 08:00 09:37 Temperature Pulse Rate 87 87 Respiratory 16 Rate Blood Pressure 157/76 159/76 O2 Sat by Pulse 100 98 Oximetry (%) 11/30/17 11/30/17 11/30/17 10:00 10:08 10:34 Temperature 99.5 F Pulse Rate 77 83 Respiratory 21 24 Rate Blood Pressure 178/87 162/93 O2 Sat by Pulse 100 Oximetry (%) Intake & Output 11/28/17 11/29/17 11/30/17 12/01/17 07:59 07:59 07:59 07:59 Intake Total 400 1180 100 Balance 400 1180 100 Weight 136 lb 1.6 oz 136 lb 8 oz nad, dyspneic no jvd, neck supple + rhonchi, weak eff. using accessory muscles. lethargic no jaundice diaphoresis abd nd pos bs rrr s1s2 no mrg no le e/c/c CBC, BMP 11/30/17 05:02 11/30/17 05:02 Microbiology 11/25/17 17:24 Blood - Peripheral Venous Blood Culture - Final Pediococcus Pentosaceus Laboratory Tests 11/29/17 11/30/17 05:00 05:02 Sodium 155 H BUN 61 H D Creatinine 2.6 H Total Bilirubin 0.6 D AST 25 D ALT 29 Alkaline Phosphatase 61 Albumin 2.3 L ecg: afib rvr, nl qtc, no ischemic changes tele: sr now with freq pac's, pvc's. afib with rvr to 120's overnight echo 11/2017: nl lv/rv, mild lvh, mild lae, mild mr/tr/ar/pr cxr: worsening infiltrates, congestion repeat cxr 11/30: slightly improved aeration est cct 35 mins a/p: 82 m hx dementia, htn, hld, ckd sent from [facility] for fever now with presumed flu/pna/sepsis/bacteremia. pafib: -in sr now, episodes of rvr at times. resumed cardizem gtt. continues on po lopressor. wean drip as tolerated (if continues to be able to take po meds) -chadsvasc warrants ac but pt with anemia here (unknown baseline) and dementia so unclear if he is good candidate for ac -echo unremarkable htn: - suboptimal control on cardizem. If hr remains controlled and requires IV meds , consider transition to nicardipine or labetolol drip hld: -resume statin when acute issues resolve. dk, ckd, hypernatremia: -cr and sodium continues to rise. mgm't of drips per pmd/critical care team. -cont abx uri/pna/bacteremia/sepsis, possible flu: -abx per PMD -?asp pna now as well trop elevation: -borderline trop elevation, does not appear to be acs -echo unremarkable
--- NOTE | 2017-11-30 12:02 | PN ---
Teaching Attending Note Name of Resident: Zan Beck ATTENDING PHYSICIAN STATEMENT I saw and evaluated the patient. I reviewed the resident's note and discussed the case with the resident. I agree with the resident's findings and plan as documented. SUBJECTIVE: Patient seen and examined in the ICU. Remains lethargic on NIPPV. Poorly arousable. Rapid AFib on IV Cardizem. CXR: Bilateral airspace disease Intake & Output 11/27/17 11/28/17 11/29/17 11/30/17 23:59 23:59 23:59 23:59 Intake Total 350 1170 160 Balance 350 1170 160 Weight 136 lb 1.6 oz 136 lb 8 oz Last Vital Signs Temp Pulse Resp BP Pulse Ox 99.5 F 83 24 162/93 100 11/30/17 10:00 11/30/17 10:34 11/30/17 10:34 11/30/17 10:34 11/30/17 10:08 Microbiology 11/25/17 17:12 Blood - Peripheral Venous Blood Culture - Preliminary NO GROWTH OBTAINED AFTER 96 HOURS, INCUBATION TO CONTINUE FOR 1 DAYS. Active Medications Acetaminophen (Ofirmev Injection -) 1,000 mg IVPB Q6H PRN PRN Reason: FEVER Last Admin: 11/29/17 17:48 Dose: 1,000 mg Albuterol/Ipratropium (Duoneb -) 1 amp NEB Q4H PRN PRN Reason: SHORTNESS OF BREATH Albuterol/Ipratropium (Duoneb -) 1 amp NEB RQID [facility] Last Admin: 11/30/17 08:04 Dose: 1 amp Diltiazem HCl (Cardizem Injection -) 10 mg IVPUSH Q4H PRN PRN Reason: FOR HR>130 Last Admin: 11/29/17 08:43 Dose: 10 mg Docusate Sodium (Colace -) 100 mg PO BID [facility] Last Admin: 11/30/17 10:20 Dose: Not Given Hydralazine HCl (Apresoline Injection -) 10 mg IVPUSH Q4H PRN PRN Reason: FOR SBP>150 Last Admin: 11/30/17 10:28 Dose: 10 mg Hydralazine HCl (Apresoline -) 100 mg PO TID [facility] Last Admin: 11/30/17 06:00 Dose: Not Given Diltiazem HCl 125 mg/ Dextrose 125 mls @ 5 mls/hr IVPB TITR [facility]; 5 MG/HR PRN Reason: Protocol Last Titration: 11/30/17 07:00 Dose: 10 mg/hr, 10 mls/hr Piperacillin Sod/Tazobactam (Sod 2.25 gm/ Dextrose) 50 mls @ 100 mls/hr IVPB Q6H-IV [facility] PRN Reason: Protocol Last Admin: 11/30/17 10:26 Dose: 100 mls/hr Dextrose (D5w -) 1,000 mls @ 42 mls/hr IV ASDIR [facility] Last Admin: 11/30/17 10:00 Dose: 42 mls/hr Insulin Aspart (Novolog Vial Sliding Scale -) 1 vial SQ ACHS [facility] PRN Reason: Protocol Last Admin: 11/30/17 06:03 Dose: 8 units Metoprolol Tartrate (Lopressor -) 100 mg PO BID [facility] Last Admin: 11/30/17 10:27 Dose: 100 mg Metoprolol Tartrate (Lopressor Injection -) 5 mg IVPUSH Q4H PRN PRN Reason: TACHYCARDIA Last Admin: 11/30/17 06:04 Dose: 5 mg Oseltamivir Phosphate (Tamiflu -) 30 mg PO BID [facility] Stop: 11/30/17 21:59 Last Admin: 11/30/17 10:29 Dose: 30 mg Polyethylene Glycol (Miralax (For Daily Use) -) 17 gm PO DAILY [facility] Last Admin: 11/30/17 10:20 Dose: Not Given Constitutional: Yes: Poorly responsive on NIPPV Eyes: Yes: Conjunctiva Clear, EOM Intact HENT: Yes: Atraumatic, Normocephalic Neck: Yes: Supple, Trachea Midline Cardiovascular: Yes: Tachycardia Respiratory: Yes: Accessory Muscle Use, NIPPV, Rhonchi, SOB, Tachypnea, Wheezes ...Inspection: Yes: WNL ...Clubbing: No Gastrointestinal: Yes: Normal Bowel Sounds, Soft Renal/: Yes: WNL Breast(s): Yes: WNL Musculoskeletal: Yes: WNL Extremities: Yes: WNL Edema: No Peripheral Pulses WNL: Yes Integumentary: Yes: WNL Neurological: Yes: Poorly responsive ...Motor Strength: WNL Psychiatric: Yes: Poorly responsive Labs: Problem List Laboratory Results - last 24 hr 0311/29/17 11/29/17 06:15 12:05 17:18 WBC RBC Hgb Hct MCV MCH MCHC RDW Plt Count MPV Sodium Potassium Chloride Carbon Dioxide Anion Gap BUN Creatinine Creat Clearance w eGFR POC Glucometer > 400 190.20068 291.24686 Random Glucose Calcium Total Bilirubin AST ALT Alkaline Phosphatase Total Protein Albumin 11/29/17 11/30/17 11/30/17 22:40 05:02 05:02 WBC 12.1 H RBC 2.85 L Hgb 8.9 L Hct 27.2 L MCV 95.6 MCH 31.4 MCHC 32.9 RDW 16.7 H Plt Count 332 D MPV 9.6 Sodium 161 H* Potassium 4.2 Chloride 127 H Carbon Dioxide 22 Anion Gap 12 BUN 80 H D Creatinine 2.9 H Creat Clearance w eGFR 20.84 POC Glucometer [phone] Random Glucose 228 H D Calcium 8.7 Total Bilirubin 0.6 D AST 25 D ALT 29 Alkaline Phosphatase 61 Total Protein 5.4 L Albumin 2.3 L 11/30/17 05:59 WBC RBC Hgb Hct MCV MCH MCHC RDW Plt Count MPV Sodium Potassium Chloride Carbon Dioxide Anion Gap BUN Creatinine Creat Clearance w eGFR POC Glucometer [phone] Random Glucose Calcium Total Bilirubin AST ALT Alkaline Phosphatase Total Protein Albumin - Problems (1) Acute respiratory failure Code(s): J96.00 - ACUTE RESPIRATORY FAILURE, UNSP W HYPOXIA OR HYPERCAPNIA (2) BPH (benign prostatic hyperplasia) Code(s): N40.0 - BENIGN PROSTATIC HYPERPLASIA WITHOUT LOWER URINRY TRACT SYMP (3) CKD (chronic kidney disease) stage 3, GFR 30-59 ml/min Code(s): N18.3 - CHRONIC KIDNEY DISEASE, STAGE 3 (MODERATE) (4) Dementia Code(s): F03.90 - UNSPECIFIED DEMENTIA WITHOUT BEHAVIORAL DISTURBANCE (5) Fever Code(s): R50.9 - FEVER, UNSPECIFIED Qualifiers: Fever type: unspecified Qualified Code(s): R50.9 - Fever, unspecified (6) HLD (hyperlipidemia) Code(s): E78.5 - HYPERLIPIDEMIA, UNSPECIFIED (7) HTN (hypertension) Code(s): I10 - ESSENTIAL (PRIMARY) HYPERTENSION (8) Influenza Code(s): J11.1 - FLU DUE TO UNIDENTIFIED INFLUENZA VIRUS W OTH RESP MANIFEST (9) Pneumonia Code(s): J18.9 - PNEUMONIA, UNSPECIFIED ORGANISM Assessment/Plan Check ABG Cardizem drip NIPPV Support: Depending on family GOC: would prefer to place on 100% NRBM ABX coverage Aspiration precautions Follow CXR BD TX Monitor off steroids Strict & O Will need to discuss further GOC with HUNTER Aguayo Critical care time spent in reviewing chart, evaluating patient and formulating plan - 36 minutes. Problem List - Problems (1) Acute respiratory failure Code(s): J96.00 - ACUTE RESPIRATORY FAILURE, UNSP W HYPOXIA OR HYPERCAPNIA (2) BPH (benign prostatic hyperplasia) Code(s): N40.0 - BENIGN PROSTATIC HYPERPLASIA WITHOUT LOWER URINRY TRACT SYMP (3) CKD (chronic kidney disease) stage 3, GFR 30-59 ml/min Code(s): N18.3 - CHRONIC KIDNEY DISEASE, STAGE 3 (MODERATE) (4) Dementia Code(s): F03.90 - UNSPECIFIED DEMENTIA WITHOUT BEHAVIORAL DISTURBANCE (5) Fever Code(s): R50.9 - FEVER, UNSPECIFIED Qualifiers: Fever type: unspecified Qualified Code(s): R50.9 - Fever, unspecified (6) HLD (hyperlipidemia) Code(s): E78.5 - HYPERLIPIDEMIA, UNSPECIFIED (7) HTN (hypertension) Code(s): I10 - ESSENTIAL (PRIMARY) HYPERTENSION (8) Influenza Code(s): J11.1 - FLU DUE TO UNIDENTIFIED INFLUENZA VIRUS W OTH RESP MANIFEST (9) Pneumonia Code(s): J18.9 - PNEUMONIA, UNSPECIFIED ORGANISM
[2017-11-30 12:12] LABS: MAGNESIUM 2.1 mg/dL (1.8-2.4)
[2017-11-30] MEDS: DILTIAZEM INJECTION 125 MG in SODIUM CHLORIDE 100 ML IVPB SCH (13:00)
[2017-11-30 13:02] LABS: ARTERIAL BLD GAS O2 SATURATION 93.6 % (90-98.9); ARTERIAL BLOOD GAS BASE EXCESS -2.3 meq/l (-2-2); ARTERIAL BLOOD GAS PCO2 34.3 mmHg (35-45); ARTERIAL BLOOD GAS PO2 74.1 mmHg (68-100); ARTERIAL BLOOD GAS pH 7.41 (7.35-7.45)
[2017-11-30 13:03] LABS: ALLENS TEST POSITIVE
--- NOTE | 2017-11-30 13:03 | PN ---
Physical Exam: SUBJECTIVE: Patient seen and examined; Mr. Artis was unable to express any concerns at this time. OBJECTIVE: Patient had episode of 101.0 temperature (rectal) overnight despite ABX. Vital Signs Period Temp Pulse Resp BP Sys/Cannon Pulse Ox Last 24 Hr 99.0 F-101.0 F 77-160 16-28 132-204/56-102 94-100 GENERAL: The patient is awake but unresponsive, in no acute distress. HEAD: Normal with no signs of trauma. EYES: PERRL, extraocular movements intact, sclera anicteric, conjunctiva clear. No ptosis. ENT: Ears normal, nares patent, oropharynx clear without exudates, moist mucous membranes. NECK: Trachea midline, full range of motion, supple. LUNGS: Breath sounds equal, clear to auscultation bilaterally, no wheezes, no crackles, no accessory muscle use. HEART: Regular rate and rhythm, S1, S2 without murmur, rub or gallop. ABDOMEN: Soft, nontender, nondistended, normoactive bowel sounds, no guarding, no rebound, no hepatosplenomegaly, no masses. EXTREMITIES: 2+ pulses, warm, well-perfused, no edema. NEUROLOGICAL: Cranial nerves II through XII grossly intact. +Speech, gait not observed. PSYCH: +Unable to assess. SKIN: Warm, dry, normal turgor, no rashes or lesions noted Laboratory Results - last 24 hr 11/29/17 11/29/17 11/29/17 06:15 17:18 22:40 WBC RBC Hgb Hct MCV MCH MCHC RDW Plt Count MPV Anticoagulation Therapy O2 Delivery Device Oxygen Flow Rate Vent Mode Vent Rate Mechanical Rate Pressure Support Vent Sodium Potassium Chloride Carbon Dioxide Anion Gap BUN Creatinine Creat Clearance w eGFR POC Glucometer > 400 291.54541 272.10679 Random Glucose Calcium Magnesium Total Bilirubin AST ALT Alkaline Phosphatase Total Protein Albumin 11/30/17 11/30/17 11/30/17 05:02 05:02 05:59 WBC 12.1 H RBC 2.85 L Hgb 8.9 L Hct 27.2 L MCV 95.6 MCH 31.4 MCHC 32.9 RDW 16.7 H Plt Count 332 D MPV 9.6 Anticoagulation Therapy O2 Delivery Device Oxygen Flow Rate Vent Mode Vent Rate Mechanical Rate Pressure Support Vent Sodium 161 H* Potassium 4.2 Chloride 127 H Carbon Dioxide 22 Anion Gap 12 BUN 80 H D Creatinine 2.9 H Creat Clearance w eGFR 20.84 POC Glucometer [phone] Random Glucose 228 H D Calcium 8.7 Magnesium 2.1 Total Bilirubin 0.6 D AST 25 D ALT 29 Alkaline Phosphatase 61 Total Protein 5.4 L Albumin 2.3 L 11/30/17 11/30/17 11:53 12:57 WBC RBC Hgb Hct MCV MCH MCHC RDW Plt Count MPV Anticoagulation Therapy No Result Required. O2 Delivery Device No Result Required. Oxygen Flow Rate No Result Required. Vent Mode No Result Required. Vent Rate No Result Required. Mechanical Rate No Result Required. Pressure Support Vent No Result Required. Sodium Potassium Chloride Carbon Dioxide Anion Gap BUN Creatinine Creat Clearance w eGFR POC Glucometer [phone] Random Glucose Calcium Magnesium Total Bilirubin AST ALT Alkaline Phosphatase Total Protein Albumin Active Medications Generic Name Dose Route Start Last Admin Trade Name Freq PRN Reason Stop Dose Admin Acetaminophen 1,000 mg 11/29/17 16:27 11/29/17 17:48 Ofirmev Injection - IVPB 1,000 mg Q6H PRN Administration FEVER Albuterol/Ipratropium 1 amp 11/28/17 00:04 Duoneb - NEB Q4H PRN SHORTNESS OF BREATH Albuterol/Ipratropium 1 amp 11/28/17 08:00 11/30/17 12:14 Duoneb - NEB 1 amp RQID [facility] Administration Diltiazem HCl 10 mg 11/27/17 18:58 11/29/17 08:43 Cardizem Injection - IVPUSH 10 mg Q4H PRN Administration FOR HR>130 Docusate Sodium 100 mg 11/28/17 10:00 11/30/17 10:20 Colace - PO Not Given BID [facility] Hydralazine HCl 10 mg 11/27/17 20:01 11/30/17 10:28 Apresoline Injection - IVPUSH 10 mg Q4H PRN Administration FOR SBP>150 Hydralazine HCl 100 mg 11/29/17 09:25 11/30/17 06:00 Apresoline - PO Not Given TID [facility] Piperacillin Sod/Tazobactam 50 mls @ 100 mls/hr 11/30/17 09:00 11/30/17 10:26 Sod 2.25 gm/ Dextrose IVPB 100 mls/hr Q6H-IV [facility] Administration Protocol Dextrose 1,000 mls @ 42 mls/hr 11/30/17 08:45 11/30/17 10:00 D5w - IV 42 mls/hr ASDIR [facility] Administration Insulin Aspart 1 vial 11/29/17 11:00 11/30/17 12:23 Novolog Vial Sliding Scale - SQ 10 units ACHS [facility] Administration Protocol Metoprolol Tartrate 100 mg 11/27/17 20:15 11/30/17 10:27 Lopressor - PO 100 mg BID [facility] Administration Metoprolol Tartrate 5 mg 11/29/17 15:51 11/30/17 06:04 Lopressor Injection - IVPUSH 5 mg Q4H PRN Administration TACHYCARDIA Oseltamivir Phosphate 30 mg 11/28/17 10:00 11/30/17 10:29 Tamiflu - PO 11/30/17 21:59 30 mg BID [facility] Administration Polyethylene Glycol 17 gm 11/28/17 10:00 11/30/17 10:20 Miralax (For Daily Use) - PO Not Given DAILY [facility] ASSESSMENT/PLAN: Mr. Artis is an 82 yo male w/ pmh of Dementia, HTN, HLD, BPH, admitted for sepsis and found to have CAP and flu brought to ICU after acute respiratory distress episode 11/29 with AMS. CAP -ID following - on Vanc / Zosyn -ABG -Oxygen as needed - 100% NRBM if inline w/ family GOC -Cardizem drip -Will follow status w/ CXR -Strict I/Os Hypernatremia -161 as per AM labs. Gentle hydration with D5 started - Family declined NG tube for free water replacement -Nephrology following Prophylaxis -Aspiration precautions -SCDs Disposition -Family would like supportive care only and will consider hospice care depending on hospital course in following 2-3 days. Visit type - Emergency Visit Emergency Visit: Yes ED Registration Date: 11/25/17 Care time: The patient presented to the Emergency Department on the above date and was hospitalized for further evaluation of their emergent condition. - New Patient This patient is new to me today: Yes Date on this admission: 11/30/17 - Critical Care Critical Care patient: Yes Total Critical Care Time (in minutes): 40 Critical Care Statement: The care of this patient involved high complexity decision making to prevent further life threatening deterioration of the patient 's condition and/or to evaluate & treat vital organ system(s) failure or risk of failure.
--- NOTE | 2017-11-30 14:53 | PN ---
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 - Note 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: Selected Entries 11/26/17 11/26/17 11/26/17 05:34 10:00 14:00 Breakfast Lunch Supper Temperature 99.2 F 98.9 F 101.0 F H 11/26/17 11/27/17 11/27/17 23:00 03:00 07:00 Breakfast Lunch Supper Temperature 102.5 F H 100.4 F H 101.8 F H 11/27/17 11/27/17 11/27/17 11:00 15:54 23:30 Breakfast Lunch Supper Temperature 99.2 F 100.5 F H 100.3 F H 11/28/17 11/28/17 11/28/17 07:33 10:30 11:00 Breakfast 50% Lunch 0 Supper Temperature 98.2 F 11/28/17 11/28/17 11/28/17 13:25 13:39 14:00 Breakfast Lunch 25% Supper Temperature 98.1 F 98.2 F 11/28/17 11/28/17 11/29/17 17:53 19:08 02:00 Breakfast Lunch Supper 25% Temperature 99.2 F 98.3 F 11/29/17 11/29/17 11/29/17 08:56 14:00 16:24 Breakfast Lunch Supper Temperature 98.8 F 100.4 F H 100.6 F H 11/29/17 11/29/17 11/29/17 18:00 20:00 22:00 Breakfast Lunch Supper Temperature 101.0 F H 99.6 F 99.5 F 11/30/17 11/30/17 11/30/17 02:00 06:00 10:00 Breakfast Lunch Supper Temperature 99.5 F 99.4 F 99.5 F Laboratory Tests 11/27/17 11/28/17 11/29/17 08:24 05:06 05:00 WBC 10.3 H D 12.4 H 10.4 H 11/30/17 05:02 WBC 12.1 H Medical events noted with periods of lethargy, needed Bipap intermittently. Today pt is alert, readily accepts pureed trials but becomes more sOB easily. Overtly not tolerating thick liquid, per nursing. Puree/nectar ordered 11/29 but worsened on 11/29. Aspiration? Assessed with puree trial with fairly strong delayed swallow. 2 swallows generated spontaneously per 1/2 tspn. RR increased from 28-37 during trials. Pt's daughter let her father suck water from toothette with responsive cough noted. Pt may be able to tolerate puree/thick liquid as he gets stronger. Pt tolerated reg diet/thin liquid premorbidly. MBS is indicated to visualize swallowing function and r/o silent aspiration. Unfortunately, pt is not medically stable at this time, on Cardizem drip. Continue NPO except meds in applesauce. D/c PO trials if vocal wetness, cough, increasing dyspnea,fevers. MBS when medically appropriate.
[2017-11-30] MEDS ORDERED: hydrALAZINE HCL 20 MG/ML VIAL ONE (20:20)
[2017-11-30] MEDS ORDERED: METOPROLOL TARTRATE 5 MG/5 ML VIAL ONE (20:20)
[2017-11-30 21:10] LABS: ANION GAP 7 (8-16); BLOOD UREA NITROGEN 81 mg/dL (7-18); CALCIUM 8.5 mg/dL (8.5-10.1); CHLORIDE 131 mmol/L (98-107); CO2 27 mmol/L (21-32); CREATININE 3.1 mg/dL (0.7-1.3); GLUCOSE,RANDOM 224 mg/dL (74-106); POTASSIUM 3.8 mmol/L (3.5-5.1)
[2017-11-30 21:14] LABS: SODIUM 165 mmol/L (136-145)
--- NOTE | 2017-11-30 21:46 | PN ---
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 (short form) - Note 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: seen and examined in room on 2L n/c / appears comfortable / lethargic Vital Signs Period Temp Pulse Resp BP Sys/Cannon Pulse Ox Last 24 Hr 99.3 F-99.5 F 65-137 16-30 132-187/54-93 94-100 neck supple heart s1/s2 Luns scattered rhonchi right > left abd soft non tender ext no edema CBC CBC, BMP 11/30/17 05:02 11/30/17 20:00 CBC, BMP 11/28/17 05:06 11/28/17 05:06 CBC, BMP 11/27/17 08:24 11/27/17 08:24 CXR - Right infiltrate / congestion Microbiology 11/25/17 17:12 Blood - Peripheral Venous Blood Culture - Preliminary NO GROWTH OBTAINED AFTER 96 HOURS, INCUBATION TO CONTINUE FOR 1 DAYS. 11/25/17 17:24 Blood - Peripheral Venous Blood Culture - Final Pediococcus Pentosaceus 11/26/17 12:00 Nasopharyngeal Swab Respiratory Virus (PCR) - Preliminary 11/25/17 18:32 Urine - Urine Clean Catch Urine Culture - Final NO GROWTH OBTAINED 11/26/17 12:00 Nasopharyngeal Swab Influenza Types A,B Antigen (JEREMY) - Final 11/26/17 12:00 Nasopharyngeal Swab - Final Active Medications Acetaminophen (Ofirmev Injection -) 1,000 mg IVPB Q6H PRN PRN Reason: FEVER Last Admin: 11/29/17 17:48 Dose: 1,000 mg Albuterol/Ipratropium (Duoneb -) 1 amp NEB Q4H PRN PRN Reason: SHORTNESS OF BREATH Albuterol/Ipratropium (Duoneb -) 1 amp NEB RQID [facility] Last Admin: 11/30/17 18:45 Dose: 1 amp Diltiazem HCl (Cardizem Injection -) 10 mg IVPUSH Q4H PRN PRN Reason: FOR HR>130 Last Admin: 11/29/17 08:43 Dose: 10 mg Docusate Sodium (Colace -) 100 mg PO BID [facility] Last Admin: 11/30/17 10:20 Dose: Not Given Hydralazine HCl (Apresoline Injection -) 10 mg IVPUSH Q4H PRN PRN Reason: FOR SBP>150 Last Admin: 11/30/17 16:47 Dose: 10 mg Hydralazine HCl (Apresoline -) 100 mg PO TID [facility] Last Admin: 11/30/17 16:48 Dose: Not Given Piperacillin Sod/Tazobactam (Sod 2.25 gm/ Dextrose) 50 mls @ 100 mls/hr IVPB Q6H-IV [facility] PRN Reason: Protocol Last Admin: 11/30/17 20:26 Dose: 100 mls/hr Dextrose (D5w -) 1,000 mls @ 42 mls/hr IV ASDIR [facility] Last Admin: 11/30/17 10:00 Dose: 42 mls/hr Diltiazem HCl 125 mg/ Sodium (Chloride) 125 mls @ 5 mls/hr IVPB TITR [facility]; 5 MG/ HR PRN Reason: Protocol Last Admin: 11/30/17 13:00 Dose: 5 mg/hr, 5 mls/hr Insulin Aspart (Novolog Vial Sliding Scale -) 1 vial SQ ACHS [facility] PRN Reason: Protocol Last Admin: 11/30/17 18:29 Dose: 8 units Metoprolol Tartrate (Lopressor -) 100 mg PO BID [facility] Last Admin: 11/30/17 10:27 Dose: 100 mg Metoprolol Tartrate (Lopressor Injection -) 5 mg IVPUSH Q4H PRN PRN Reason: TACHYCARDIA Last Admin: 11/30/17 06:04 Dose: 5 mg Oseltamivir Phosphate (Tamiflu -) 30 mg PO BID [facility] Stop: 11/30/17 21:59 Last Admin: 11/30/17 10:29 Dose: 30 mg Polyethylene Glycol (Miralax (For Daily Use) -) 17 gm PO DAILY [facility] Last Admin: 11/30/17 10:20 Dose: Not Given telemetry -- in RVR last night - remains in Fib although had swallow eval unclear if he will be able to take PO meds now unresponsive - will need to keep NPO # hypernatremia / intravascular depletion / dehydration inc free water follow Na # + blood c/s - follow up cultures has been febrile now inc spectrum ABX discussed with ID # [id number] A fib with RVR - no prior hx IV BB as tolerated for rate control until able to take PO risk of a/c to discussed --defer a/c # Inc TNI 2/2 to demand Fever / AFib RVR discuss with cardio unlikely ACS will trend #CKD will trend # HTN on multiple home meds will resume once cleared post swallow eval continue to monitor # Hypokalemia replace via IV ck Magnesium replace lytes as needed # Dementia long standing at baseline overall poor prognosis Problem List - Problems (1) Acute hypernatremia Code(s): E87.0 - HYPEROSMOLALITY AND HYPERNATREMIA (2) Acute tracheobronchitis Code(s): J20.9 - ACUTE BRONCHITIS, UNSPECIFIED (3) Acute respiratory failure Code(s): J96.00 - ACUTE RESPIRATORY FAILURE, UNSP W HYPOXIA OR HYPERCAPNIA (4) Dementia Code(s): F03.90 - UNSPECIFIED DEMENTIA WITHOUT BEHAVIORAL DISTURBANCE (5) HTN (hypertension) Code(s): I10 - ESSENTIAL (PRIMARY) HYPERTENSION (6) HLD (hyperlipidemia) Code(s): E78.5 - HYPERLIPIDEMIA, UNSPECIFIED (7) BPH (benign prostatic hyperplasia) Code(s): N40.0 - BENIGN PROSTATIC HYPERPLASIA WITHOUT LOWER URINRY TRACT SYMP (8) CKD (chronic kidney disease) stage 3, GFR 30-59 ml/min Code(s): N18.3 - CHRONIC KIDNEY DISEASE, STAGE 3 (MODERATE)
[2017-12-01] MEDS ORDERED: BENZOIN/ALOE VERA/STORAX/TOLU 58 ML BOTTLE ONE (01:04)
[2017-12-01 02:01] LABS: ANION GAP 11 (8-16); BLOOD UREA NITROGEN 86 mg/dL (7-18); CALCIUM 8.4 mg/dL (8.5-10.1); CHLORIDE 129 mmol/L (98-107); CO2 23 mmol/L (21-32); GLUCOSE,RANDOM 205 mg/dL (74-106); POTASSIUM 3.7 mmol/L (3.5-5.1)
[2017-12-01 02:03] LABS: SODIUM 163 mmol/L (136-145)
[2017-12-01] MEDS ORDERED: DEXTROSE 5%-WATER - 1,000 ML IV SCH ×2 (02:03→15:32)
[2017-12-01] MEDS: PIPERACILLIN/TAZOB 2.25 GM 2.25 GM in DEXTROSE 5%-WATER - 50 ML IVPB SCH ×4 (04:00→20:44)
[2017-12-01] MEDS: INSULIN SLIDING SCALE (NOVOLOG) 1 VIAL SQ SCH ×3 (06:22→23:17)
[2017-12-01] MEDS: METOPROLOL TARTRATE 5 MG/5 ML VIAL IVPUSH PRN ×2 (06:41→12:46)
[2017-12-01] MEDS: hydrALAZINE HCL 20 MG/ML VIAL IVPUSH PRN (06:41)
[2017-12-01] MEDS: hydrALAZINE HCL 50 MG TABLET (FP) PO SCH ×2 (06:42→14:05)
[2017-12-01 07:00] LABS: HEMATOCRIT 29.7 % (35.4-49); HEMOGLOBIN 9.6 GM/dL (11.7-16.9); MCH 31.4 pg (25.7-33.7); MCHC 32.4 g/dl (32.0-35.9); MEAN CELL VOLUME 96.8 fl (80-96); MEAN PLT VOLUME 8.8 fl (7.5-11.1); PLATELET COUNT 352 K/MM3 (134-434); RBC 3.06 M/mm3 (4.00-5.60); RDW 16.7 % (11.9-15.9); WHITE BLOOD COUNT 14.7 K/mm3 (4.0-10.0)
[2017-12-01 07:25] LABS: ANION GAP 11 (8-16); BLOOD UREA NITROGEN 76 mg/dL (7-18); CALCIUM 7.6 mg/dL (8.5-10.1); CHLORIDE 127 mmol/L (98-107); CO2 24 mmol/L (21-32); GLUCOSE,RANDOM 299 mg/dL (74-106); MAGNESIUM 2.1 mg/dL (1.8-2.4); PHOSPHOROUS 3.4 mg/dL (2.5-4.9); POTASSIUM 3.8 mmol/L (3.5-5.1)
[2017-12-01 08:09] LABS: SODIUM 162 mmol/L (136-145)
[2017-12-01] MEDS: ALBUTEROL SO4 2.5/IPRATROPIUM 0.5 INH SOL 3 ML VIAL.NEB. NEB SCH ×4 (08:25→19:55)
[2017-12-01] MEDS: METOPROLOL TARTRATE 50 MG TABLET (FP) PO SCH ×2 (09:44→23:12)
[2017-12-01] MEDS: DOCUSATE SODIUM 100 MG CAPSULE (FP) PO SCH ×2 (09:44→23:12)
[2017-12-01] MEDS: POLYETHYLENE GLYCOL 3350 119 GM BTL PO SCH (09:45)
[2017-12-01 10:43] LABS: PLATELET ESTIMATE NORMAL
--- NOTE | 2017-12-01 11:25 | PN ---
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 (short form) - Note 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: CC: pna/sepsis s: Now NPO, not receiving po hydralazine or labetolol. Getting IV hydralazine prn. low rate of IVF D5 started yesterday for hypernatremia, rate increased overnight with improvement in hypernatremia. CXR with worsening congestion today and layering effusions (by my review). Remains on cardizem drip o: Current Medications Acetaminophen (Ofirmev Injection -) 1,000 mg IVPB Q6H PRN PRN Reason: FEVER Last Admin: 11/29/17 17:48 Dose: 1,000 mg Albuterol/Ipratropium (Duoneb -) 1 amp NEB Q4H PRN PRN Reason: SHORTNESS OF BREATH Albuterol/Ipratropium (Duoneb -) 1 amp NEB RQID [facility] Last Admin: 12/01/17 08:25 Dose: 1 amp Diltiazem HCl (Cardizem Injection -) 10 mg IVPUSH Q4H PRN PRN Reason: FOR HR>130 Last Admin: 11/29/17 08:43 Dose: 10 mg Docusate Sodium (Colace -) 100 mg PO BID [facility] Last Admin: 12/01/17 09:44 Dose: Not Given Hydralazine HCl (Apresoline Injection -) 10 mg IVPUSH Q4H PRN PRN Reason: FOR SBP>150 Last Admin: 12/01/17 06:41 Dose: 10 mg Hydralazine HCl (Apresoline -) 100 mg PO TID [facility] Last Admin: 12/01/17 06:42 Dose: Not Given Piperacillin Sod/Tazobactam (Sod 2.25 gm/ Dextrose) 50 mls @ 100 mls/hr IVPB Q6H-IV [facility] PRN Reason: Protocol Last Admin: 12/01/17 11:07 Dose: 100 mls/hr Diltiazem HCl 125 mg/ Sodium (Chloride) 125 mls @ 5 mls/hr IVPB TITR [facility]; 5 MG/ HR PRN Reason: Protocol Last Titration: 12/01/17 10:44 Dose: 12 mg/hr, 12 mls/hr Dextrose (D5w -) 1,000 mls @ 150 mls/hr IV ASDIR [facility] Last Admin: 12/01/17 06:42 Dose: 150 mls/hr Metoprolol Tartrate (Lopressor -) 100 mg PO BID [facility] Last Admin: 12/01/17 09:44 Dose: Not Given Metoprolol Tartrate (Lopressor Injection -) 5 mg IVPUSH Q4H PRN PRN Reason: TACHYCARDIA Last Admin: 12/01/17 06:41 Dose: 5 mg Polyethylene Glycol (Miralax (For Daily Use) -) 17 gm PO DAILY [facility] Last Admin: 12/01/17 09:45 Dose: Not Given Vital Signs - 24 hr 11/30/17 11/30/17 11/30/17 12:00 12:13 14:00 Temperature 99.4 F Pulse Rate 84 66 Respiratory 30 H 22 Rate Blood Pressure 153/54 155/64 O2 Sat by Pulse 94 L Oximetry (%) 11/30/17 11/30/17 11/30/17 16:00 18:00 18:23 Temperature 99.3 F Pulse Rate 65 68 Respiratory 24 30 H Rate Blood Pressure 180/71 163/64 O2 Sat by Pulse 95 Oximetry (%) 11/30/17 11/30/17 11/30/17 18:44 20:00 22:00 Temperature 99 F Pulse Rate 71 84 Respiratory 28 H 26 H Rate Blood Pressure 165/75 172/66 O2 Sat by Pulse 94 L 96 Oximetry (%) 11/30/17 12/01/17 12/01/17 23:00 00:00 02:00 Temperature 98.8 F Pulse Rate 88 78 89 Respiratory 26 H 28 H Rate Blood Pressure 188/88 165/75 175/76 O2 Sat by Pulse Oximetry (%) 12/01/17 12/01/17 12/01/17 06:00 07:56 07:59 Temperature 99.3 F 99.5 F Pulse Rate 107 H 113 H Respiratory 25 H 25 H 25 H Rate Blood Pressure 183/77 179/78 O2 Sat by Pulse 96 96 Oximetry (%) 12/01/17 12/01/17 10:00 10:44 Temperature Pulse Rate 119 H Respiratory Rate Blood Pressure 179/82 O2 Sat by Pulse 94 L Oximetry (%) Intake & Output 11/29/17 11/30/17 12/01/17 12/02/17 07:59 07:59 07:59 07:59 Intake Total 4756 060 5186 Output Total 350 Balance 8545 395 4329 Weight 136 lb 1.6 oz 136 lb 8 oz 136 lb 3.2 oz nad, dyspneic no jvd, neck supple + rhonchi, weak eff. using accessory muscles. lethargic no jaundice diaphoresis abd nd pos bs rrr s1s2 no mrg no le e/c/c CBC, BMP 12/01/17 05:30 12/01/17 05:30 Microbiology 11/25/17 17:24 Blood - Peripheral Venous Blood Culture - Final Pediococcus Pentosaceus Laboratory Tests 11/30/17 11/30/17 12/01/17 05:02 20:00 01:00 Sodium 161 H* 165 H* 163 H* ecg: afib rvr, nl qtc, no ischemic changes tele: sr now with freq pac's, pvc's. afib with rvr to 120's overnight echo 11/2017: nl lv/rv, mild lvh, mild lae, mild mr/tr/ar/pr. cxr: worsening infiltrates, congestion repeat cxr 11/30: slightly improved aeration repeat cxr 12/01: worsening congestion and layering effusions (by my review), per report: increased pleural and pulmonary changes. est cct 35 mins a/p: 82 m hx dementia, htn, hld, ckd sent from [place] for fever now with presumed flu/pna/sepsis/bacteremia. pafib: -11/30 in sr now, episodes of rvr at times. resumed cardizem gtt. continues on po lopressor. wean drip as tolerated (if continues to be able to take po meds) - 12/01: now unable to take po meds. cardizem gtt not controlling heart rate or bp. Will change to labetolol drip with prn iv lopressor. -chadsvasc warrants ac but pt with anemia here (unknown baseline) and dementia so unclear if he is good candidate for ac. can readdress if clinical status improves. -echo unremarkable htn: - suboptimal control on cardizem. transitioning to labetolol drip hld: -resume statin when acute issues resolve. dk, ckd, hypernatremia: -cr and sodium continues to rise. mgm't of drips per pmd/critical care team. -cont abx uri/pna/bacteremia/sepsis, possible flu: -abx per PMD -?asp pna now as well - 12/01: also appears to be developing congestive changes, but respiratory status remains stable. Appears to be requiring increased rate of IVF for management of hypernatremia. Renal consult appreciated. Will defer to renal regarding IVF rate. trop elevation: -borderline trop elevation, does not appear to be acs -echo unremarkable GOC - discussions ongoing. Family does not want NG tube placed at this time.
[2017-12-01] MEDS ORDERED: VANCOMYCIN 1,000 MG in DEXTROSE 5%-WATER - 250 ML IVPB ONE (12:25)
--- NOTE | 2017-12-01 12:25 | PN ---
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, Physician History of Present Illness: Lethargic but arousable Offers no complaints Breathing non-labored on nasal cannula O2 Temps down afebrile WBC 14.1 - Current Medication List Current Medications: Active Medications Acetaminophen (Ofirmev Injection -) 1,000 mg IVPB Q6H PRN PRN Reason: FEVER Last Admin: 11/29/17 17:48 Dose: 1,000 mg Albuterol/Ipratropium (Duoneb -) 1 amp NEB Q4H PRN PRN Reason: SHORTNESS OF BREATH Albuterol/Ipratropium (Duoneb -) 1 amp NEB RQID SHAY Last Admin: 12/01/17 08:25 Dose: 1 amp Diltiazem HCl (Cardizem Injection -) 10 mg IVPUSH Q4H PRN PRN Reason: FOR HR>130 Last Admin: 11/29/17 08:43 Dose: 10 mg Docusate Sodium (Colace -) 100 mg PO BID SHAY Last Admin: 12/01/17 09:44 Dose: Not Given Hydralazine HCl (Apresoline Injection -) 10 mg IVPUSH Q4H PRN PRN Reason: FOR SBP>150 Last Admin: 12/01/17 06:41 Dose: 10 mg Hydralazine HCl (Apresoline -) 100 mg PO TID SHAY Last Admin: 12/01/17 06:42 Dose: Not Given Piperacillin Sod/Tazobactam (Sod 2.25 gm/ Dextrose) 50 mls @ 100 mls/hr IVPB Q6H-IV SHAY PRN Reason: Protocol Last Admin: 12/01/17 11:07 Dose: 100 mls/hr Diltiazem HCl 125 mg/ Sodium (Chloride) 125 mls @ 5 mls/hr IVPB TITR SHAY; 5 MG/ HR PRN Reason: Protocol Last Titration: 12/01/17 10:44 Dose: 12 mg/hr, 12 mls/hr Dextrose (D5w -) 1,000 mls @ 150 mls/hr IV ASDIR SHAY Last Admin: 12/01/17 06:42 Dose: 150 mls/hr Metoprolol Tartrate (Lopressor -) 100 mg PO BID SHAY Last Admin: 12/01/17 09:44 Dose: Not Given Metoprolol Tartrate (Lopressor Injection -) 5 mg IVPUSH Q4H PRN PRN Reason: TACHYCARDIA Last Admin: 12/01/17 06:41 Dose: 5 mg Polyethylene Glycol (Miralax (For Daily Use) -) 17 gm PO DAILY SHAY Last Admin: 12/01/17 09:45 Dose: Not Given - Objective Vital Signs: Vital Signs Temperature 99.5 F 12/01/17 07:56 Pulse Rate 119 H 12/01/17 10:44 Respiratory Rate 25 H 12/01/17 07:59 Blood Pressure 179/82 12/01/17 10:44 O2 Sat by Pulse Oximetry (%) 94 L 12/01/17 10:00 Constitutional: Yes: Pallor Cardiovascular: Yes: S1, S2. No: Regular Rate and Rhythm Respiratory: Yes: Diminished Gastrointestinal: Yes: Normal Bowel Sounds, Soft. No: Tenderness Edema: LLE: 1+, RLE: 1+ Labs: CBC, BMP 12/01/17 05:30 12/01/17 05:30 INR, PTT INR 1.03 (0.82-1.09) 11/25/17 17:24 Assessment/Plan Pneumonia ? Influenza Afib PATRICIO OBS Continue empiric zosyn/ vancomycin, adjusted for renal failure
--- NOTE | 2017-12-01 13:27 | PN ---
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 Remains on cardizem drip NPO
[2017-12-01] MEDS: DILTIAZEM INJECTION 125 MG in SODIUM CHLORIDE 100 ML IVPB SCH (13:54)
[2017-12-01] MEDS ORDERED: PT OWN MED DRAWER 7, Y5N ONE ×2 (14:10→20:35)
[2017-12-01] MEDS: dilTIAZem HCL 25 MG/5 ML - 5 ML VIAL IVPUSH PRN (14:46)
[2017-12-01] MEDS ORDERED: LABETALOL HCL INJECTION 1,000 MG in SODIUM CHLORIDE 800 ML IV SCH (15:00)
--- NOTE | 2017-12-01 15:00 | PN ---
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 (short form) - Note 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: seen and examined in room on 2L n/c / dyspneic / lethargic on cardizem drip -- Afib 104-130s being titrated up Vital Signs Period Temp Pulse Resp BP Sys/Cannon Pulse Ox Last 24 Hr 98.8 F-99.5 F 65-119 24-30 140-188/64-88 94-96 neck supple heart s1/s2 Luns scattered rhonchi right > left abd soft non tender ext no edema CBC, BMP 12/01/17 05:30 12/01/17 05:30 CBC CBC, BMP 11/30/17 05:02 11/30/17 20:00 CBC, BMP 11/28/17 05:06 11/28/17 05:06 CBC, BMP 11/27/17 08:24 11/27/17 08:24 CXR - Right infiltrate / congestion effusios / Inc congestion? Microbiology 11/25/17 17:12 Blood - Peripheral Venous Blood Culture - Final NO GROWTH AFTER 5 DAYS INCUBATION 11/25/17 17:24 Blood - Peripheral Venous Blood Culture - Final Pediococcus Pentosaceus 11/26/17 12:00 Nasopharyngeal Swab Respiratory Virus (PCR) - Preliminary 11/25/17 18:32 Urine - Urine Clean Catch Urine Culture - Final NO GROWTH OBTAINED 11/26/17 12:00 Nasopharyngeal Swab Influenza Types A,B Antigen (JEREMY) - Final 11/26/17 12:00 Nasopharyngeal Swab - Final Active Medications Acetaminophen (Ofirmev Injection -) 1,000 mg IVPB Q6H PRN PRN Reason: FEVER Last Admin: 11/29/17 17:48 Dose: 1,000 mg Albuterol/Ipratropium (Duoneb -) 1 amp NEB Q4H PRN PRN Reason: SHORTNESS OF BREATH Albuterol/Ipratropium (Duoneb -) 1 amp NEB RQID SHAY Last Admin: 12/01/17 13:17 Dose: 1 amp Diltiazem HCl (Cardizem Injection -) 10 mg IVPUSH Q4H PRN PRN Reason: FOR HR>130 Last Admin: 12/01/17 14:46 Dose: 10 mg Docusate Sodium (Colace -) 100 mg PO BID SHAY Last Admin: 12/01/17 09:44 Dose: Not Given Hydralazine HCl (Apresoline Injection -) 10 mg IVPUSH Q4H PRN PRN Reason: FOR SBP>150 Last Admin: 12/01/17 06:41 Dose: 10 mg Hydralazine HCl (Apresoline -) 100 mg PO TID SHAY Last Admin: 12/01/17 14:05 Dose: Not Given Piperacillin Sod/Tazobactam (Sod 2.25 gm/ Dextrose) 50 mls @ 100 mls/hr IVPB Q6H-IV SHAY PRN Reason: Protocol Last Admin: 12/01/17 14:45 Dose: 100 mls/hr Diltiazem HCl 125 mg/ Sodium (Chloride) 125 mls @ 5 mls/hr IVPB TITR SHAY; 5 MG/ HR PRN Reason: Protocol Last Admin: 12/01/17 13:54 Dose: Not Given Dextrose (D5w -) 1,000 mls @ 150 mls/hr IV ASDIR SHYA Last Admin: 12/01/17 06:42 Dose: 150 mls/hr Metoprolol Tartrate (Lopressor -) 100 mg PO BID [facility] Last Admin: 12/01/17 09:44 Dose: Not Given Metoprolol Tartrate (Lopressor Injection -) 5 mg IVPUSH Q4H PRN PRN Reason: TACHYCARDIA Last Admin: 12/01/17 12:46 Dose: 5 mg Polyethylene Glycol (Miralax (For Daily Use) -) 17 gm PO DAILY [facility] Last Admin: 12/01/17 09:45 Dose: Not Given telemetry -- in RVR last night - remains in Fib although had swallow eval unclear if he will be able to take PO meds now unresponsive - will need to keep NPO # hypernatremia / improving intravascular depletion / dehydration inc free water follow Na # + blood c/s - follow up cultures has been febrile now inc spectrum ABX discussed with ID # [id number] A fib with RVR - on Crdizem drip -- poor rate control / bp uncontrolled will need IV as PO has unacceptable risk of aspiration May consider Lopressor for add / or improved control # Inc TNI 2/2 to demand Fever / AFib RVR discuss with cardio unlikely ACS will trend #CKD acute elevation, improved with added free water / worsening HF? / bilat effusions appreciate CC input # HTN on multiple home meds will need to adjust IV meds for BP / rate control PO will resume once cleared post swallow eval continue to monitor # Hypokalemia replace via IV ck Magnesium replace lytes as needed # Dementia long standing at baseline overall poor prognosis GOC-- discussions ongoing. Family does not want NG tube placed at this time. Problem List - Problems (1) Acute hypernatremia Code(s): E87.0 - HYPEROSMOLALITY AND HYPERNATREMIA (2) Acute tracheobronchitis Code(s): J20.9 - ACUTE BRONCHITIS, UNSPECIFIED (3) Acute respiratory failure Code(s): J96.00 - ACUTE RESPIRATORY FAILURE, UNSP W HYPOXIA OR HYPERCAPNIA (4) Dementia Code(s): F03.90 - UNSPECIFIED DEMENTIA WITHOUT BEHAVIORAL DISTURBANCE (5) HTN (hypertension) Code(s): I10 - ESSENTIAL (PRIMARY) HYPERTENSION (6) HLD (hyperlipidemia) Code(s): E78.5 - HYPERLIPIDEMIA, UNSPECIFIED (7) BPH (benign prostatic hyperplasia) Code(s): N40.0 - BENIGN PROSTATIC HYPERPLASIA WITHOUT LOWER URINRY TRACT SYMP (8) CKD (chronic kidney disease) stage 3, GFR 30-59 ml/min Code(s): N18.3 - CHRONIC KIDNEY DISEASE, STAGE 3 (MODERATE)
--- NOTE | 2017-12-01 15:06 | PN ---
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 (short form) - Note 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: Patient seen and examined in the Telemetry unit. Remains lethargic. Mildly tachypneic on 3 L NC O2, but maintaining saturation. Remains in rapid AFib. CXR: Increasing congestive changes Intake & Output 11/28/17 11/29/17 11/30/17 12/01/17 23:59 23:59 23:59 23:59 Intake Total 1170 614 322 8785 Output Total 350 Balance 1170 339 225 9344 Weight 136 lb 1.6 oz 136 lb 8 oz 136 lb 3.2 oz Last Vital Signs Temp Pulse Resp BP Pulse Ox 99 F 94 H 25 H 140/70 94 L 12/01/17 13:35 12/01/17 13:35 12/01/17 13:35 12/01/17 13:35 12/01/17 10:00 Active Medications Acetaminophen (Ofirmev Injection -) 1,000 mg IVPB Q6H PRN PRN Reason: FEVER Last Admin: 11/29/17 17:48 Dose: 1,000 mg Albuterol/Ipratropium (Duoneb -) 1 amp NEB Q4H PRN PRN Reason: SHORTNESS OF BREATH Albuterol/Ipratropium (Duoneb -) 1 amp NEB RQID SHAY Last Admin: 12/01/17 15:05 Dose: 1 amp Docusate Sodium (Colace -) 100 mg PO BID SHAY Last Admin: 12/01/17 09:44 Dose: Not Given Hydralazine HCl (Apresoline Injection -) 10 mg IVPUSH Q4H PRN PRN Reason: FOR SBP>150 Last Admin: 12/01/17 06:41 Dose: 10 mg Piperacillin Sod/Tazobactam (Sod 2.25 gm/ Dextrose) 50 mls @ 100 mls/hr IVPB Q6H-IV SHAY PRN Reason: Protocol Last Admin: 12/01/17 14:45 Dose: 100 mls/hr Dextrose (D5w -) 1,000 mls @ 150 mls/hr IV ASDIR SHAY Last Admin: 12/01/17 06:42 Dose: 150 mls/hr Labetalol HCl 1,000 mg/ Sodium (Chloride) 1,000 mls @ 120 mls/hr IV TITR SHAY PRN Reason: 2 MG/MIN Metoprolol Tartrate (Lopressor -) 100 mg PO BID [facility] Last Admin: 12/01/17 09:44 Dose: Not Given Metoprolol Tartrate (Lopressor Injection -) 5 mg IVPUSH Q4H PRN PRN Reason: TACHYCARDIA Last Admin: 12/01/17 12:46 Dose: 5 mg Polyethylene Glycol (Miralax (For Daily Use) -) 17 gm PO DAILY [facility] Last Admin: 12/01/17 09:45 Dose: Not Given Constitutional: Yes: Lethargic on NC O2, mildly tachypneic Eyes: Yes: Conjunctiva Clear, EOM Intact HENT: Yes: Atraumatic, Normocephalic Neck: Yes: Supple, Trachea Midline Cardiovascular: Yes: Tachycardia Respiratory: Yes: Accessory Muscle Use, NIPPV, Rhonchi, SOB, Tachypnea, Wheezes ...Inspection: Yes: WNL ...Clubbing: No Gastrointestinal: Yes: Normal Bowel Sounds, Soft Renal/: Yes: WNL Breast(s): Yes: WNL Musculoskeletal: Yes: WNL Extremities: Yes: WNL Edema: No Peripheral Pulses WNL: Yes Integumentary: Yes: WNL Neurological: Yes: Poorly responsive ...Motor Strength: WNL Psychiatric: Yes: Poorly responsive Labs: Laboratory Results - last 24 hr 11/30/17 11/30/17 11/30/17 18:19 20:00 21:51 WBC RBC Hgb Hct MCV MCH MCHC RDW Plt Count MPV Neutrophils % Neutrophils % (Manual) Band Neutrophils % Lymphocytes % Lymphocytes % (Manual) Monocytes % (Manual) Eosinophils % (Manual) Basophils % (Manual) Myelocytes % (Man) Promyelocytes % (Man) Blast Cells % (Manual) Nucleated RBC % Metamyelocytes Hypochromia Platelet Estimate Sodium 165 H* Potassium 3.8 Chloride 131 H Carbon Dioxide 27 D Anion Gap 7 L BUN 81 H Creatinine 3.1 H POC Glucometer 295.24434 234.63252 Random Glucose 224 H Serum Osmolality Calcium 8.5 Phosphorus Magnesium Random Vancomycin 12/01/17 12/01/17 12/01/17 01:00 05:30 05:30 WBC RBC Hgb Hct MCV MCH MCHC RDW Plt Count MPV Neutrophils % Neutrophils % (Manual) Band Neutrophils % Lymphocytes % Lymphocytes % (Manual) Monocytes % (Manual) Eosinophils % (Manual) Basophils % (Manual) Myelocytes % (Man) Promyelocytes % (Man) Blast Cells % (Manual) Nucleated RBC % Metamyelocytes Hypochromia Platelet Estimate Sodium 163 H* 162 H* Potassium 3.7 3.8 Chloride 129 H 127 H Carbon Dioxide 23 24 Anion Gap 11 11 BUN 86 H 76 H Creatinine 3.0 H 3.0 H POC Glucometer Random Glucose 205 H 299 H D Serum Osmolality Calcium 8.4 L 7.6 L Phosphorus 3.4 Magnesium 2.1 Random Vancomycin 14.367 12/01/17 12/01/17 12/01/17 05:30 05:30 06:06 WBC 14.7 H RBC 3.06 L Hgb 9.6 L Hct 29.7 L MCV 96.8 H MCH 31.4 MCHC 32.4 RDW 16.7 H Plt Count 352 MPV 8.8 Neutrophils % No Result Required. Neutrophils % (Manual) 75.5 Band Neutrophils % 0.0 Lymphocytes % No Result Required. Lymphocytes % (Manual) 10.2 Monocytes % (Manual) 7 Eosinophils % (Manual) 4.1 Basophils % (Manual) 0.0 Myelocytes % (Man) 2 Promyelocytes % (Man) 0 Blast Cells % (Manual) 0 Nucleated RBC % 0 Metamyelocytes 0 Hypochromia 1+ Platelet Estimate Normal Sodium Potassium Chloride Carbon Dioxide Anion Gap BUN Creatinine POC Glucometer 303.12240 Random Glucose Serum Osmolality 366 H Calcium Phosphorus Magnesium Random Vancomycin - Problems (1) Acute respiratory failure Code(s): J96.00 - ACUTE RESPIRATORY FAILURE, UNSP W HYPOXIA OR HYPERCAPNIA (2) BPH (benign prostatic hyperplasia) Code(s): N40.0 - BENIGN PROSTATIC HYPERPLASIA WITHOUT LOWER URINRY TRACT SYMP (3) CKD (chronic kidney disease) stage 3, GFR 30-59 ml/min Code(s): N18.3 - CHRONIC KIDNEY DISEASE, STAGE 3 (MODERATE) (4) Dementia Code(s): F03.90 - UNSPECIFIED DEMENTIA WITHOUT BEHAVIORAL DISTURBANCE (5) Fever Code(s): R50.9 - FEVER, UNSPECIFIED Qualifiers: Fever type: unspecified Qualified Code(s): R50.9 - Fever, unspecified (6) HLD (hyperlipidemia) Code(s): E78.5 - HYPERLIPIDEMIA, UNSPECIFIED (7) HTN (hypertension) Code(s): I10 - ESSENTIAL (PRIMARY) HYPERTENSION (8) Influenza Code(s): J11.1 - FLU DUE TO UNIDENTIFIED INFLUENZA VIRUS W OTH RESP MANIFEST (9) Pneumonia Code(s): J18.9 - PNEUMONIA, UNSPECIFIED ORGANISM Assessment/Plan Labetalol drip O2 to maintain saturation NIPPV support if needed ABX coverage Aspiration precautions Follow CXR BD TX Monitor off steroids Strict & O DNR/DNI Dr Aguayo Problem List - Problems (1) Acute respiratory failure Code(s): J96.00 - ACUTE RESPIRATORY FAILURE, UNSP W HYPOXIA OR HYPERCAPNIA (2) BPH (benign prostatic hyperplasia) Code(s): N40.0 - BENIGN PROSTATIC HYPERPLASIA WITHOUT LOWER URINRY TRACT SYMP (3) CKD (chronic kidney disease) stage 3, GFR 30-59 ml/min Code(s): N18.3 - CHRONIC KIDNEY DISEASE, STAGE 3 (MODERATE) (4) Dementia Code(s): F03.90 - UNSPECIFIED DEMENTIA WITHOUT BEHAVIORAL DISTURBANCE (5) Fever Code(s): R50.9 - FEVER, UNSPECIFIED Qualifiers: Fever type: unspecified Qualified Code(s): R50.9 - Fever, unspecified (6) HLD (hyperlipidemia) Code(s): E78.5 - HYPERLIPIDEMIA, UNSPECIFIED (7) HTN (hypertension) Code(s): I10 - ESSENTIAL (PRIMARY) HYPERTENSION (8) Influenza Code(s): J11.1 - FLU DUE TO UNIDENTIFIED INFLUENZA VIRUS W OTH RESP MANIFEST (9) Pneumonia Code(s): J18.9 - PNEUMONIA, UNSPECIFIED ORGANISM
--- NOTE | 2017-12-01 15:06 | CONSULT ---
Consult Consult Specialty:: Nephrology Reason for Consultation:: hypernatremia - History of Present Illness Chief Complaint: initially presented with fever History of Present Illness: Pt is an 82 year old male with pmhx of HTN, dementia, HLD, and BPH who initially presented with fever. He is now in the ICU. He is on a cardizem drip for a-fib. He is unable to give much history. Chart was reviewed. He developed hypernatremia and I was called to evaluate him. His sodium has been improving slightly for the last few days. He is getting d5w and has been tolerating it. 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 Cardio/Vascular: Yes: HTN Renal/: Yes: BPH - Alcohol/Substance Use Hx Alcohol Use: No - Smoking History Smoking history: Never smoked Have you smoked in the past 12 months: No - Social History ADL: Support Services History of Recent Travel: No Home Medications - Allergies Allergies/Adverse Reactions: Allergies Allergy/AdvReac Type Severity Reaction Status Date / Time apricot Allergy Unknown Verified 11/25/17 16:53 morrison Allergy Unknown Itching Verified 11/27/17 16:53 peach Allergy Unknown Verified 11/25/17 16:53 phenobarbital Allergy Unknown Verified 11/25/17 16:53 NECTARINE TREE Allergy Unknown Uncoded 11/25/17 16:53 SUMME FRUITS Allergy Unknown Uncoded 11/25/17 16:53 - Home Medications Home Medications: Ambulatory Orders Amlodipine Besylate 5 mg PO 11/25/17 Ascorbic Acid [Vitamin C -] 500 mg PO DAILY 11/25/17 Atorvastatin Ca [Lipitor] 40 mg PO HS 11/25/17 Cholecalciferol (Vitamin D3) [Vitamin D3] 50,000 unit PO DAILY 11/25/17 Citalopram Hydrobromide [Citalopram HBr] 10 mg PO DAILY 11/25/17 Clonidine HCl 0.3 mg PO HS 11/25/17 Hydralazine HCl 25 mg PO TID 11/25/17 Losartan Potassium 50 mg PO DAILY 11/25/17 Metoprolol Succinate [Toprol Xl] 100 mg PO DAILY 11/25/17 Nystatin Powder [Nystop Topical Powder -] 30 gm TP DAILY PRN 11/25/17 Olanzapine 5 mg PO DAILY 11/25/17 Oseltamivir Phosphate 30 mg PO DAILY MDD 14 days 11/25/17 Polyethylene Glycol 3350 [Laxaclear] 1,700 gm PO DAILY 11/25/17 Terazosin HCl 5 mg PO HS 11/25/17 Family Disease History - Family Disease History Family History: Denies Review of Systems Unable to obtain ROS, reason: pt not answering Physical Exam Vital Signs: Vital Signs Temperature 99 F 12/01/17 13:35 Pulse Rate 94 H 12/01/17 13:35 Respiratory Rate 25 H 12/01/17 13:35 Blood Pressure 140/70 12/01/17 13:35 O2 Sat by Pulse Oximetry (%) 94 L 12/01/17 10:00 Constitutional: Yes: Calm Eyes: Yes: Conjunctiva Clear HENT: Yes: Atraumatic Neck: Yes: Supple Cardiovascular: Yes: S1, S2 Respiratory: Yes: On Nasal O2 Gastrointestinal: Yes: Soft Renal/: Yes: Other ([place] cath) Musculoskeletal: Yes: Muscle Weakness Edema: No Neurological: Yes: Lethargy Labs: CBC, BMP 12/01/17 05:30 12/01/17 05:30 Laboratory Tests 11/25/17 11/25/17 11/26/17 17:24 18:32 05:35 WBC Hgb Sodium 146 H 149 H BUN Creatinine Urine pH 6.0 Ur Specific [place] 1.014 11/27/17 11/27/17 11/28/17 08:24 21:55 05:06 WBC Hgb Sodium 154 H 155 H 155 H BUN Creatinine Urine pH Ur Specific [place] 11/29/17 11/30/17 11/30/17 05:00 05:02 20:00 WBC Hgb Sodium 155 H 161 H* 165 H* BUN Creatinine Urine pH Ur Specific [place] 12/01/17 12/01/17 12/01/17 01:00 05:30 05:30 WBC 14.7 H Hgb 9.6 L Sodium 163 H* 162 H* BUN 76 H Creatinine 3.0 H 3.0 H Urine pH Ur Specific [place] [facility] - Results Chest X-ray: Report Reviewed Problem List - Problems (1) Acute hypernatremia Code(s): E87.0 - HYPEROSMOLALITY AND HYPERNATREMIA (2) BPH (benign prostatic hyperplasia) Code(s): N40.0 - BENIGN PROSTATIC HYPERPLASIA WITHOUT LOWER URINRY TRACT SYMP (3) CKD (chronic kidney disease) stage 3, GFR 30-59 ml/min Code(s): N18.3 - CHRONIC KIDNEY DISEASE, STAGE 3 (MODERATE) (4) Dementia Code(s): F03.90 - UNSPECIFIED DEMENTIA WITHOUT BEHAVIORAL DISTURBANCE (5) Fever Code(s): R50.9 - FEVER, UNSPECIFIED Qualifiers: Fever type: unspecified Qualified Code(s): R50.9 - Fever, unspecified Assessment/Plan Current Medications Generic Name Dose Route Start Last Admin Trade Name Freq PRN Reason Stop Dose Admin Acetaminophen 1,000 mg 11/29/17 16:27 11/29/17 17:48 Ofirmev Injection - IVPB 1,000 mg Q6H PRN Administration FEVER Albuterol/Ipratropium 1 amp 11/28/17 00:04 Duoneb - NEB Q4H PRN SHORTNESS OF BREATH Albuterol/Ipratropium 1 amp 11/28/17 08:00 12/01/17 15:05 Duoneb - NEB 1 amp RQID SHAY Administration Docusate Sodium 100 mg 11/28/17 10:00 12/01/17 09:44 Colace - PO Not Given BID SHAY Hydralazine HCl 10 mg 11/27/17 20:01 12/01/17 06:41 Apresoline Injection - IVPUSH 10 mg Q4H PRN Administration FOR SBP>150 Piperacillin Sod/Tazobactam 50 mls @ 100 mls/hr 11/30/17 09:00 12/01/17 14:45 Sod 2.25 gm/ Dextrose IVPB 100 mls/hr Q6H-IV SHAY Administration Protocol Dextrose 1,000 mls @ 150 mls/hr 12/01/17 02:03 12/01/17 06:42 D5w - IV 150 mls/hr ASDIR SHAY Administration Labetalol HCl 1,000 mg/ Sodium 1,000 mls @ 120 mls/hr 12/01/17 15:00 Chloride IV TITR SHAY 2 MG/MIN Metoprolol Tartrate 100 mg 11/27/17 20:15 12/01/17 09:44 Lopressor - PO Not Given BID SHAY Metoprolol Tartrate 5 mg 11/29/17 15:51 12/01/17 12:46 Lopressor Injection - IVPUSH 5 mg Q4H PRN Administration TACHYCARDIA Polyethylene Glycol 17 gm 03/17/18 10:00 12/01/17 09:45 Miralax (For Daily Use) - PO Not Given DAILY SHAY Impression 1. hypernatremia 2. a-fib 3. CKD 4. dementia 5. HTN 6. BPH Plan - Pt has a total free water deficit of about 4.85 liters. He needs about 2 L to get him to a target sodium of 152 in 24 hours - recommend decreasing rate of IV fluids to 100 cc as he is more congested - check urine osm - monitor urine output and monitor for signs on polyuria - mix drips with hypotonic fluids of d5w - consider ng tube placement for feeds and free water - will follow Dr Roy
[2017-12-01] MEDS: LABETALOL HCL INJECTION 1,000 MG in DEXTROSE 5%-WATER - 800 ML IV SCH (19:00)
[2017-12-02] MEDS: PIPERACILLIN/TAZOB 2.25 GM 2.25 GM in DEXTROSE 5%-WATER - 50 ML IVPB SCH ×4 (02:17→22:15)
[2017-12-02] MEDS: INSULIN SLIDING SCALE (NOVOLOG) 1 VIAL SQ SCH ×4 (06:29→22:14)
--- NOTE | 2017-12-02 06:31 | PN ---
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, Physician Chief Complaint: ID Vancomycin & Zosyn day 2 change in meds NAD but not responding verbal stimuli - Current Medication List Current Medications: Active Medications Acetaminophen (Ofirmev Injection -) 1,000 mg IVPB Q6H PRN PRN Reason: FEVER Last Admin: 11/29/17 17:48 Dose: 1,000 mg Albuterol/Ipratropium (Duoneb -) 1 amp NEB Q4H PRN PRN Reason: SHORTNESS OF BREATH Albuterol/Ipratropium (Duoneb -) 1 amp NEB RQID SHAY Last Admin: 12/01/17 19:55 Dose: 1 amp Docusate Sodium (Colace -) 100 mg PO BID [facility] Last Admin: 12/01/17 23:12 Dose: Not Given Hydralazine HCl (Apresoline Injection -) 10 mg IVPUSH Q4H PRN PRN Reason: FOR SBP>150 Last Admin: 12/01/17 06:41 Dose: 10 mg Piperacillin Sod/Tazobactam (Sod 2.25 gm/ Dextrose) 50 mls @ 100 mls/hr IVPB Q6H-IV SHAY PRN Reason: Protocol Last Admin: 12/02/17 02:17 Dose: 100 mls/hr Labetalol HCl 1,000 mg/ (Dextrose) 1,000 mls @ 120 mls/hr IV TITR SHAY; 2 MG/MIN PRN Reason: Protocol Last Infusion: 12/01/17 20:50 Dose: 0.5 mg/min, 30 mls/hr Insulin Aspart (Novolog Vial Sliding Scale -) 1 vial SQ ACHS SHAY PRN Reason: Protocol Last Admin: 12/01/17 23:17 Dose: 8 units Metoprolol Tartrate (Lopressor -) 100 mg PO BID [facility] Last Admin: 12/01/17 23:12 Dose: Not Given Metoprolol Tartrate (Lopressor Injection -) 5 mg IVPUSH Q4H PRN PRN Reason: TACHYCARDIA Last Admin: 12/01/17 12:46 Dose: 5 mg Polyethylene Glycol (Miralax (For Daily Use) -) 17 gm PO DAILY [facility] Last Admin: 12/01/17 09:45 Dose: Not Given - Objective Vital Signs: Vital Signs Temperature 97.8 F 12/02/17 06:00 Pulse Rate 54 L 12/02/17 06:00 Respiratory Rate 25 H 12/02/17 06:00 Blood Pressure 147/47 12/02/17 06:00 O2 Sat by Pulse Oximetry (%) 98 12/01/17 23:03 Constitutional: Yes: No Distress Eyes: Yes: WNL, Conjunctiva Clear HENT: Yes: WNL, Atraumatic Neck: Yes: WNL, Supple Cardiovascular: Yes: S1, S2 Respiratory: Yes: WNL, Regular, CTA Bilaterally Gastrointestinal: Yes: WNL, Normal Bowel Sounds, Soft. No: Tenderness Edema: No Labs: INR, PTT INR 1.03 (0.82-1.09) 11/25/17 17:24 Problem List - Problems (1) Influenza Code(s): J11.1 - FLU DUE TO UNIDENTIFIED INFLUENZA VIRUS W OTH RESP MANIFEST (2) Acute respiratory failure Code(s): J96.00 - ACUTE RESPIRATORY FAILURE, UNSP W HYPOXIA OR HYPERCAPNIA (3) Pneumonia Code(s): J18.9 - PNEUMONIA, UNSPECIFIED ORGANISM (4) Streptococcal bacteremia Code(s): R78.81 - BACTEREMIA; B95.5 - UNSP STREPTOCOCCUS [facility] Assessment/Plan Microbiology 11/25/17 17:12 Blood - Peripheral Venous Blood Culture - Final NO GROWTH AFTER 5 DAYS INCUBATION Laboratory Tests 12/01/17 12/01/17 12/02/17 05:30 05:30 06:10 WBC 14.7 H RBC 3.06 L Hgb Hct 29.7 L Plt Count 352 BUN 76 H Creatinine 3.0 H Random Vancomycin Pending 12/02/17 06:10 WBC Pending RBC Hgb Pending Hct Pending Plt Count Pending BUN Creatinine Random Vancomycin Assessment Sepsis syndrome Possible influenza treated Extensive pneumonia aspiration considered Plan Empiric antibiotics as ordered Check Vanco levels D/C isolation Patrick RINALDI
[2017-12-02 07:11] LABS: ANION GAP 13 (8-16); BLOOD UREA NITROGEN 79 mg/dL (7-18); CALCIUM 7.9 mg/dL (8.5-10.1); CHLORIDE 125 mmol/L (98-107); CO2 21 mmol/L (21-32); CREATININE 3.6 mg/dL (0.7-1.3); GLUCOSE,RANDOM 187 mg/dL (74-106); SODIUM 159 mmol/L (136-145)
[2017-12-02 07:16] LABS: POTASSIUM 3.7 mmol/L (3.5-5.1)
[2017-12-02 07:23] LABS: BASO % 0.4 % (0-2.0); EOS % 2.6 % (0-4.5); HEMATOCRIT 25.8 % (35.4-49); HEMOGLOBIN 8.3 GM/dL (11.7-16.9); LYMPH % 4.5 % (8-40); MCHC 32.1 g/dl (32.0-35.9); MEAN CELL VOLUME 96.5 fl (80-96); MEAN PLT VOLUME 9.5 fl (7.5-11.1); MONO % 3.4 % (3.8-10.2); NEUT % 89.1 % (42.8-82.8); PLATELET COUNT 275 K/MM3 (134-434); RBC 2.67 M/mm3 (4.00-5.60); WHITE BLOOD COUNT 16.3 K/mm3 (4.0-10.0)
[2017-12-02] MEDS: ALBUTEROL SO4 2.5/IPRATROPIUM 0.5 INH SOL 3 ML VIAL.NEB. NEB SCH ×4 (08:10→21:14)
[2017-12-02] MEDS ORDERED: PT OWN MED DRAWER 7, Y5N ONE ×2 (09:35→22:08)
[2017-12-02] MEDS: METOPROLOL TARTRATE 50 MG TABLET (FP) PO SCH ×2 (09:53→22:15)
[2017-12-02] MEDS: DOCUSATE SODIUM 100 MG CAPSULE (FP) PO SCH ×2 (09:53→22:15)
[2017-12-02] MEDS: POLYETHYLENE GLYCOL 3350 119 GM BTL PO SCH (09:57)
--- NOTE | 2017-12-02 11:12 | PN ---
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 (short form) - Note 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: CC: pna/sepsis s: lethargic, non communicative, remains npo, no overnight events o: Vital Signs Period Temp Pulse Resp BP Sys/Cannon Pulse Ox Last 24 Hr 97.5 F-98.8 F 54-170 22-26 104-168/47-110 97-98 nad, dyspneic no jvd, neck supple + rhonchi, weak eff. using accessory muscles. lethargic no jaundice diaphoresis abd nd pos bs rrr s1s2 no mrg no le e/c/c Current Medications Generic Name Dose Route Start Last Admin Trade Name Freq PRN Reason Stop Dose Admin Acetaminophen 1,000 mg 11/29/17 16:27 11/29/17 17:48 Ofirmev Injection - IVPB 1,000 mg Q6H PRN Administration FEVER Albuterol/Ipratropium 1 amp 11/28/17 00:04 Duoneb - NEB Q4H PRN SHORTNESS OF BREATH Albuterol/Ipratropium 1 amp 11/28/17 08:00 12/02/17 08:10 Duoneb - NEB 1 amp RQID SHAY Administration Docusate Sodium 100 mg 11/28/17 10:00 12/02/17 09:53 Colace - PO Not Given BID SHAY Hydralazine HCl 10 mg 11/27/17 20:01 12/01/17 06:41 Apresoline Injection - IVPUSH 10 mg Q4H PRN Administration FOR SBP>150 Piperacillin Sod/Tazobactam 50 mls @ 100 mls/hr 11/30/17 09:00 12/02/17 09:53 Sod 2.25 gm/ Dextrose IVPB 100 mls/hr Q6H-IV SHAY Administration Protocol Labetalol HCl 1,000 mg/ 1,000 mls @ 120 mls/hr 12/01/17 18:00 12/01/17 20:50 Dextrose IV 0.5 mg/min TITR SHAY 30 mls/hr Protocol Infusion 2 MG/MIN Insulin Aspart 1 vial 12/01/17 22:00 12/02/17 06:29 Novolog Vial Sliding Scale - SQ 8 units ACHS SHAY Administration Protocol Metoprolol Tartrate 100 mg 11/27/17 20:15 12/02/17 09:53 Lopressor - PO Not Given BID SHAY Metoprolol Tartrate 5 mg 11/29/17 15:51 12/01/17 12:46 Lopressor Injection - IVPUSH 5 mg Q4H PRN Administration TACHYCARDIA Polyethylene Glycol 17 gm 11/28/17 10:00 12/02/17 09:57 Miralax (For Daily Use) - PO Not Given DAILY [facility] 12/02/17 06:10 12/02/17 06:10 ecg: afib rvr, nl qtc, no ischemic changes tele: sr echo 11/2017: nl lv/rv, mild lvh, mild lae, mild mr/tr/ar/pr. cxr: worsening infiltrates, congestion repeat cxr 11/30: slightly improved aeration repeat cxr 12/01: worsening congestion and layering effusions (by my review), per report: increased pleural and pulmonary changes. a/p: 82 m hx dementia, htn, hld, ckd sent from [facility] for fever now with presumed flu/pna/sepsis/bacteremia. pafib: -11/30 in sr now, episodes of rvr at times. resumed cardizem gtt. continues on po lopressor. wean drip as tolerated (if continues to be able to take po meds) - 12/01: now unable to take po meds. cardizem gtt not controlling heart rate or bp. Will change to labetolol drip with prn iv lopressor. -12/02: in sr now. cont same iv bb for rate control since remains npo -chadsvasc warrants ac but pt with anemia here (unknown baseline) and dementia so unclear if he is good candidate for ac. can readdress if clinical status improves. -echo unremarkable htn: - improved on bb hld: -resume statin when acute issues resolve. dk, ckd, hypernatremia: -cr and sodium continues to rise. uri/pna/bacteremia/sepsis, possible flu: -abx per PMD -?asp pna now as well - 12/01-: also appears to be developing congestive changes, but respiratory status remains stable. Appears to be requiring increased rate of IVF for management of hypernatremia. Renal consult appreciated. Will defer to renal regarding IVF rate. trop elevation: -borderline trop elevation, does not appear to be acs -echo unremarkable GOC - discussions ongoing. Family does not want NG tube placed at this time.
--- NOTE | 2017-12-02 14:11 | PN ---
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, Physician History of Present Illness: Pt seen and examined at bedside. No great clinical change overnight. - Current Medication List Current Medications: Active Medications Acetaminophen (Ofirmev Injection -) 1,000 mg IVPB Q6H PRN PRN Reason: FEVER Last Admin: 11/29/17 17:48 Dose: 1,000 mg Albuterol/Ipratropium (Duoneb -) 1 amp NEB Q4H PRN PRN Reason: SHORTNESS OF BREATH Albuterol/Ipratropium (Duoneb -) 1 amp NEB RQID SHAY Last Admin: 12/02/17 08:10 Dose: 1 amp Docusate Sodium (Colace -) 100 mg PO BID [facility] Last Admin: 12/02/17 09:53 Dose: Not Given Hydralazine HCl (Apresoline Injection -) 10 mg IVPUSH Q4H PRN PRN Reason: FOR SBP>150 Last Admin: 12/01/17 06:41 Dose: 10 mg Piperacillin Sod/Tazobactam (Sod 2.25 gm/ Dextrose) 50 mls @ 100 mls/hr IVPB Q6H-IV SHAY PRN Reason: Protocol Last Admin: 12/02/17 09:53 Dose: 100 mls/hr Labetalol HCl 1,000 mg/ (Dextrose) 1,000 mls @ 120 mls/hr IV TITR SHAY; 2 MG/MIN PRN Reason: Protocol Last Infusion: 12/01/17 20:50 Dose: 0.5 mg/min, 30 mls/hr Insulin Aspart (Novolog Vial Sliding Scale -) 1 vial SQ ACHS SHAY PRN Reason: Protocol Last Admin: 12/02/17 06:29 Dose: 8 units Metoprolol Tartrate (Lopressor -) 100 mg PO BID [facility] Last Admin: 12/02/17 09:53 Dose: Not Given Metoprolol Tartrate (Lopressor Injection -) 5 mg IVPUSH Q4H PRN PRN Reason: TACHYCARDIA Last Admin: 12/01/17 12:46 Dose: 5 mg Polyethylene Glycol (Miralax (For Daily Use) -) 17 gm PO DAILY [facility] Last Admin: 12/02/17 09:57 Dose: Not Given - Objective Vital Signs: Vital Signs Temperature 97.1 F L 12/02/17 13:04 Pulse Rate 56 L 12/02/17 13:04 Respiratory Rate 25 H 12/02/17 13:04 Blood Pressure 154/52 12/02/17 13:04 O2 Sat by Pulse Oximetry (%) 98 12/01/17 23:03 Constitutional: Yes: Calm Eyes: Yes: Conjunctiva Clear HENT: Yes: Atraumatic Cardiovascular: Yes: S1, S2 Respiratory: Yes: On Nasal O2, Rhonchi Gastrointestinal: Yes: Soft Genitourinary: Yes: Pink Present Musculoskeletal: Yes: Muscle Weakness Edema: No Neurological: Yes: Lethargy Labs: CBC, BMP 12/02/17 06:10 12/02/17 06:10 INR, PTT INR 1.03 (0.82-1.09) 11/25/17 17:24 - ....Imaging Ultrasound: Report Reviewed Problem List - Problems (1) Acute hypernatremia Code(s): E87.0 - HYPEROSMOLALITY AND HYPERNATREMIA (2) BPH (benign prostatic hyperplasia) Code(s): N40.0 - BENIGN PROSTATIC HYPERPLASIA WITHOUT LOWER URINRY TRACT SYMP (3) CKD (chronic kidney disease) stage 3, GFR 30-59 ml/min Code(s): N18.3 - CHRONIC KIDNEY DISEASE, STAGE 3 (MODERATE) (4) Dementia Code(s): F03.90 - UNSPECIFIED DEMENTIA WITHOUT BEHAVIORAL DISTURBANCE (5) Fever Code(s): R50.9 - FEVER, UNSPECIFIED Qualifiers: Fever type: unspecified Qualified Code(s): R50.9 - Fever, unspecified Assessment/Plan Current Medications Generic Name Dose Route Start Last Admin Trade Name Freq PRN Reason Stop Dose Admin Acetaminophen 1,000 mg 11/29/17 16:27 11/29/17 17:48 Ofirmev Injection - IVPB 1,000 mg Q6H PRN Administration FEVER Albuterol/Ipratropium 1 amp 11/28/17 00:04 Duoneb - NEB Q4H PRN SHORTNESS OF BREATH Albuterol/Ipratropium 1 amp 11/28/17 08:00 12/02/17 08:10 Duoneb - NEB 1 amp RQID SHAY Administration Docusate Sodium 100 mg 11/28/17 10:00 12/02/17 09:53 Colace - PO Not Given BID SHAY Hydralazine HCl 10 mg 11/27/17 20:01 12/01/17 06:41 Apresoline Injection - IVPUSH 10 mg Q4H PRN Administration FOR SBP>150 Piperacillin Sod/Tazobactam 50 mls @ 100 mls/hr 11/30/17 09:00 12/02/17 09:53 Sod 2.25 gm/ Dextrose IVPB 100 mls/hr Q6H-IV SHAY Administration Protocol Labetalol HCl 1,000 mg/ 1,000 mls @ 120 mls/hr 12/01/17 18:00 12/01/17 20:50 Dextrose IV 0.5 mg/min TITR SHAY 30 mls/hr Protocol Infusion 2 MG/MIN Insulin Aspart 1 vial 12/01/17 22:00 12/02/17 06:29 Novolog Vial Sliding Scale - SQ 8 units ACHS SHAY Administration Protocol Metoprolol Tartrate 100 mg 11/27/17 20:15 12/02/17 09:53 Lopressor - PO Not Given BID SHAY Metoprolol Tartrate 5 mg 11/29/17 15:51 12/01/17 12:46 Lopressor Injection - IVPUSH 5 mg Q4H PRN Administration TACHYCARDIA Polyethylene Glycol 17 gm 11/28/17 10:00 12/02/17 09:57 Miralax (For Daily Use) - PO Not Given DAILY [facility] Impression 1. hypernatremia 2. a-fib 3. CKD 4. dementia 5. HTN 6. BPH Plan - cont with d5w, pt has been getting about 120 cc per hour from the labetolol - sodium is improving - repeat labs in am - renal ultrasound reviewed - monitor urine output - consider ng tube placement for feeds and free water - will follow Dr Roy
--- NOTE | 2017-12-02 18:46 | PN ---
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 (short form) - Note 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: seen and examined in room on 2L n/c / less dyspneic / lethargic improved Bp/ Hr control on labetolol Intake & Output 11/29/17 11/30/17 12/01/17 12/02/17 23:59 23:59 23:59 23:59 Intake Total 387 388 2682 410 Output Total 900 675 Balance 490 232 5382 -265 Weight 136 lb 1.6 oz 136 lb 8 oz 136 lb 3.2 oz 134 lb 0.657 oz neck supple heart s1/s2 Luns scattered rhonchi right > left abd soft non tender ext no edema CBC, BMP 12/02/17 06:10 12/02/17 06:10 CBC, BMP 12/01/17 05:30 12/01/17 05:30 CBC CBC, BMP 11/30/17 05:02 11/30/17 20:00 CXR - Right infiltrate / congestion effusios / Inc congestion? Microbiology 11/26/17 12:00 Nasopharyngeal Swab Respiratory Virus (PCR) - Final 11/25/17 17:12 Blood - Peripheral Venous Blood Culture - Final NO GROWTH AFTER 5 DAYS INCUBATION 11/25/17 17:24 Blood - Peripheral Venous Blood Culture - Final Pediococcus Pentosaceus 11/25/17 18:32 Urine - Urine Clean Catch Urine Culture - Final NO GROWTH OBTAINED 11/26/17 12:00 Nasopharyngeal Swab Influenza Types A,B Antigen (JEREMY) - Final 11/26/17 12:00 Nasopharyngeal Swab - Final Active Medications Acetaminophen (Ofirmev Injection -) 1,000 mg IVPB Q6H PRN PRN Reason: FEVER Last Admin: 11/29/17 17:48 Dose: 1,000 mg Albuterol/Ipratropium (Duoneb -) 1 amp NEB Q4H PRN PRN Reason: SHORTNESS OF BREATH Albuterol/Ipratropium (Duoneb -) 1 amp NEB RQID SHAY Last Admin: 12/02/17 16:11 Dose: 1 amp Docusate Sodium (Colace -) 100 mg PO BID [facility] Last Admin: 12/02/17 09:53 Dose: Not Given Hydralazine HCl (Apresoline Injection -) 10 mg IVPUSH Q4H PRN PRN Reason: FOR SBP>150 Last Admin: 12/01/17 06:41 Dose: 10 mg Piperacillin Sod/Tazobactam (Sod 2.25 gm/ Dextrose) 50 mls @ 100 mls/hr IVPB Q6H-IV SHAY PRN Reason: Protocol Last Admin: 12/02/17 09:53 Dose: 100 mls/hr Labetalol HCl 1,000 mg/ (Dextrose) 1,000 mls @ 120 mls/hr IV TITR SHAY; 2 MG/MIN PRN Reason: Protocol Last Infusion: 12/01/17 20:50 Dose: 0.5 mg/min, 30 mls/hr Insulin Aspart (Novolog Vial Sliding Scale -) 1 vial SQ ACHS SHAY PRN Reason: Protocol Last Admin: 12/02/17 17:49 Dose: Not Given Metoprolol Tartrate (Lopressor -) 100 mg PO BID [facility]AY Last Admin: 12/02/17 09:53 Dose: Not Given Metoprolol Tartrate (Lopressor Injection -) 5 mg IVPUSH Q4H PRN PRN Reason: TACHYCARDIA Last Admin: 12/01/17 12:46 Dose: 5 mg Polyethylene Glycol (Miralax (For Daily Use) -) 17 gm PO DAILY [facility] Last Admin: 12/02/17 09:57 Dose: Not Given Last Admin: 12/01/17 09:45 Dose: Not Given # hypernatremia / improving intravascular depletion / dehydration inc free water would benefit from NGT - family declines follow Na # + blood c/s - follow up cultures has been febrile ABX per ID # PAF A fib with RVR - improved control on BB # Inc TNI #CKD # HTN better control # Hypokalemia replace lytes as needed # Dementia long standing at baseline overall poor prognosis GOC-- discussions ongoing. Family does not want NG tube placed at this time. Problem List - Problems (1) Acute hypernatremia Code(s): E87.0 - HYPEROSMOLALITY AND HYPERNATREMIA (2) Acute tracheobronchitis Code(s): J20.9 - ACUTE BRONCHITIS, UNSPECIFIED (3) Acute respiratory failure Code(s): J96.00 - ACUTE RESPIRATORY FAILURE, UNSP W HYPOXIA OR HYPERCAPNIA (4) Dementia Code(s): F03.90 - UNSPECIFIED DEMENTIA WITHOUT BEHAVIORAL DISTURBANCE (5) HTN (hypertension) Code(s): I10 - ESSENTIAL (PRIMARY) HYPERTENSION (6) HLD (hyperlipidemia) Code(s): E78.5 - HYPERLIPIDEMIA, UNSPECIFIED (7) BPH (benign prostatic hyperplasia) Code(s): N40.0 - BENIGN PROSTATIC HYPERPLASIA WITHOUT LOWER URINRY TRACT SYMP (8) CKD (chronic kidney disease) stage 3, GFR 30-59 ml/min Code(s): N18.3 - CHRONIC KIDNEY DISEASE, STAGE 3 (MODERATE)
[2017-12-02] MEDS: LABETALOL HCL INJECTION 1,000 MG in DEXTROSE 5%-WATER - 800 ML IV SCH (21:05)
[2017-12-03] MEDS: PIPERACILLIN/TAZOB 2.25 GM 2.25 GM in DEXTROSE 5%-WATER - 50 ML IVPB SCH ×4 (03:26→23:58)
[2017-12-03] MEDS: INSULIN SLIDING SCALE (NOVOLOG) 1 VIAL SQ SCH ×3 (06:48→17:45)
[2017-12-03] MEDS: POLYETHYLENE GLYCOL 3350 119 GM BTL PO SCH (10:00)
--- NOTE | 2017-12-03 10:28 | PN ---
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 (short form) - Note 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: CC: pna/sepsis s: lethargic, non communicative, remains npo, no overnight events o: Vital Signs Period Temp Pulse Resp BP Sys/Cannon Pulse Ox Last 24 Hr 97.1 F-98.7 F 54-61 20-25 146-182/52-77 98-100 nad, dyspneic no jvd, neck supple + rhonchi, weak eff. using accessory muscles. lethargic no jaundice diaphoresis abd nd pos bs rrr s1s2 no mrg no le e/c/c Current Medications Generic Name Dose Route Start Last Admin Trade Name Freq PRN Reason Stop Dose Admin Acetaminophen 1,000 mg 11/29/17 16:27 11/29/17 17:48 Ofirmev Injection - IVPB 1,000 mg Q6H PRN Administration FEVER Docusate Sodium 100 mg 11/28/17 10:00 12/02/17 22:15 Colace - PO Not Given BID SHAY Hydralazine HCl 10 mg 11/27/17 20:01 12/01/17 06:41 Apresoline Injection - IVPUSH 10 mg Q4H PRN Administration FOR SBP>150 Piperacillin Sod/Tazobactam 50 mls @ 100 mls/hr 11/30/17 09:00 12/03/17 03:26 Sod 2.25 gm/ Dextrose IVPB 100 mls/hr Q6H-IV SHAY Administration Protocol Labetalol HCl 1,000 mg/ 1,000 mls @ 120 mls/hr 12/01/17 18:00 12/02/17 21:05 Dextrose IV Not Given TITR SHAY Protocol 2 MG/MIN Insulin Aspart 1 vial 12/01/17 22:00 12/03/17 06:48 Novolog Vial Sliding Scale - SQ 4 units ACHS SHAY Administration Protocol Metoprolol Tartrate 100 mg 11/27/17 20:15 12/02/17 22:15 Lopressor - PO Not Given BID SHAY Metoprolol Tartrate 5 mg 11/29/17 15:51 12/01/17 12:46 Lopressor Injection - IVPUSH 5 mg Q4H PRN Administration TACHYCARDIA Polyethylene Glycol 17 gm 11/28/17 10:00 12/02/17 09:57 Miralax (For Daily Use) - PO Not Given DAILY [facility] CBC, BMP 12/02/17 06:10 12/02/17 06:10 ecg: afib rvr, nl qtc, no ischemic changes tele: sr echo 11/2017: nl lv/rv, mild lvh, mild lae, mild mr/tr/ar/pr. cxr: worsening infiltrates, congestion repeat cxr 11/30: slightly improved aeration repeat cxr 12/01: worsening congestion and layering effusions (by my review), per report: increased pleural and pulmonary changes. a/p: 82 m hx dementia, htn, hld, ckd sent from [facility] for fever now with presumed flu/pna/sepsis/bacteremia. pafib: -11/30 in sr now, episodes of rvr at times. resumed cardizem gtt. continues on po lopressor. wean drip as tolerated (if continues to be able to take po meds) - 12/01: now unable to take po meds. cardizem gtt not controlling heart rate or bp. Will change to labetolol drip with prn iv lopressor. -12/02-: in sr now. cont same iv bb for rate control since remains npo -chadsvasc warrants ac but pt with anemia here (unknown baseline) and dementia so unclear if he is good candidate for ac. can readdress if clinical status improves. -echo unremarkable htn: - cont iv meds as he remains npo hld: -resume statin when acute issues resolve. dk, ckd, hypernatremia: -cr and sodium continues to rise. uri/pna/bacteremia/sepsis, possible flu: -abx per ID trop elevation: -borderline trop elevation, does not appear to be acs -echo unremarkable GOC - discussions ongoing. Family does not want NG tube placed at this time.
[2017-12-03] MEDS: DOCUSATE SODIUM 100 MG CAPSULE (FP) PO SCH ×2 (11:00→23:58)
[2017-12-03] MEDS: METOPROLOL TARTRATE 50 MG TABLET (FP) PO SCH (11:33)
[2017-12-03 12:49] LABS: HEMATOCRIT 26.4 % (35.4-49); HEMOGLOBIN 8.6 GM/dL (11.7-16.9); MCH 31.5 pg (25.7-33.7); MCHC 32.5 g/dl (32.0-35.9); MEAN CELL VOLUME 96.8 fl (80-96); MEAN PLT VOLUME 9.2 fl (7.5-11.1); PLATELET COUNT 302 K/MM3 (134-434); RBC 2.73 M/mm3 (4.00-5.60); RDW 16.8 % (11.9-15.9); WHITE BLOOD COUNT 11.8 K/mm3 (4.0-10.0)
[2017-12-03 13:19] LABS: ALBUMIN 2.1 g/dl (3.4-5.0); ALK PHOS 48 U/L (45-117); ANION GAP 12 (8-16); BILIRUBIN,TOTAL 0.5 mg/dL (0.2-1.0); BLOOD UREA NITROGEN 79 mg/dL (7-18); CHLORIDE 126 mmol/L (98-107); CO2 24 mmol/L (21-32); CREATININE 3.2 mg/dL (0.7-1.3); GLUCOSE,RANDOM 195 mg/dL (74-106); POTASSIUM 3.5 mmol/L (3.5-5.1); SGOT/AST 17 U/L (15-37); SGPT/ALT 22 U/L (12-78); TOT PROT 4.8 g/dl (6.4-8.2)
[2017-12-03 13:22] LABS: SODIUM 162 mmol/L (136-145)
--- NOTE | 2017-12-03 14:23 | PN ---
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, Physician History of Present Illness: Pt seen and examined at bedside. He remains lethargic. He does wake up at times. - Current Medication List Current Medications: Active Medications Acetaminophen (Ofirmev Injection -) 1,000 mg IVPB Q6H PRN PRN Reason: FEVER Last Admin: 11/29/17 17:48 Dose: 1,000 mg Docusate Sodium (Colace -) 100 mg PO BID [facility] Last Admin: 12/03/17 11:00 Dose: Not Given Hydralazine HCl (Apresoline Injection -) 10 mg IVPUSH Q4H PRN PRN Reason: FOR SBP>150 Last Admin: 12/01/17 06:41 Dose: 10 mg Piperacillin Sod/Tazobactam (Sod 2.25 gm/ Dextrose) 50 mls @ 100 mls/hr IVPB Q6H-IV SHAY PRN Reason: Protocol Last Admin: 12/03/17 03:26 Dose: 100 mls/hr Labetalol HCl 1,000 mg/ (Dextrose) 1,000 mls @ 120 mls/hr IV TITR SHAY; 2 MG/MIN PRN Reason: Protocol Last Admin: 12/02/17 21:05 Dose: Not Given Insulin Aspart (Novolog Vial Sliding Scale -) 1 vial SQ ACHS SHAY PRN Reason: Protocol Last Admin: 12/03/17 12:46 Dose: Not Given Metoprolol Tartrate (Lopressor -) 100 mg PO BID [facility] Last Admin: 12/03/17 11:33 Dose: Not Given Metoprolol Tartrate (Lopressor Injection -) 5 mg IVPUSH Q4H PRN PRN Reason: TACHYCARDIA Last Admin: 12/01/17 12:46 Dose: 5 mg Polyethylene Glycol (Miralax (For Daily Use) -) 17 gm PO DAILY [facility] Last Admin: 12/03/17 10:00 Dose: Not Given - Objective Vital Signs: Vital Signs Temperature 99 F 12/03/17 12:57 Pulse Rate 56 L 12/03/17 12:57 Respiratory Rate 20 12/03/17 12:57 Blood Pressure 155/70 12/03/17 12:57 O2 Sat by Pulse Oximetry (%) 100 12/03/17 00:05 Constitutional: Yes: Calm Eyes: Yes: Conjunctiva Clear HENT: Yes: Atraumatic Cardiovascular: Yes: S1, S2 Respiratory: Yes: CTA Bilaterally Gastrointestinal: Yes: Normal Bowel Sounds, Soft Genitourinary: Yes: Pink Present Musculoskeletal: Yes: Muscle Weakness Edema: Yes Edema: LLE: Trace, RLE: Trace Neurological: Yes: Lethargy Labs: CBC, BMP 12/03/17 12:21 12/03/17 12:21 INR, PTT INR 1.03 (0.82-1.09) 11/25/17 17:24 Problem List - Problems (1) Acute hypernatremia Code(s): E87.0 - HYPEROSMOLALITY AND HYPERNATREMIA (2) BPH (benign prostatic hyperplasia) Code(s): N40.0 - BENIGN PROSTATIC HYPERPLASIA WITHOUT LOWER URINRY TRACT SYMP (3) CKD (chronic kidney disease) stage 3, GFR 30-59 ml/min Code(s): N18.3 - CHRONIC KIDNEY DISEASE, STAGE 3 (MODERATE) (4) Dementia Code(s): F03.90 - UNSPECIFIED DEMENTIA WITHOUT BEHAVIORAL DISTURBANCE (5) Fever Code(s): R50.9 - FEVER, UNSPECIFIED Qualifiers: Fever type: unspecified Qualified Code(s): R50.9 - Fever, unspecified Assessment/Plan Current Medications Generic Name Dose Route Start Last Admin Trade Name Freq PRN Reason Stop Dose Admin Acetaminophen 1,000 mg 11/29/17 16:27 11/29/17 17:48 Ofirmev Injection - IVPB 1,000 mg Q6H PRN Administration FEVER Docusate Sodium 100 mg 11/28/17 10:00 12/03/17 11:00 Colace - PO Not Given BID SHAY Hydralazine HCl 10 mg 11/27/17 20:01 12/01/17 06:41 Apresoline Injection - IVPUSH 10 mg Q4H PRN Administration FOR SBP>150 Piperacillin Sod/Tazobactam 50 mls @ 100 mls/hr 11/30/17 09:00 12/03/17 03:26 Sod 2.25 gm/ Dextrose IVPB 100 mls/hr Q6H-IV SHAY Administration Protocol Labetalol HCl 1,000 mg/ 1,000 mls @ 120 mls/hr 12/01/17 18:00 12/02/17 21:05 Dextrose IV Not Given TITR SHAY Protocol 2 MG/MIN Insulin Aspart 1 vial 12/01/17 22:00 12/03/17 12:46 Novolog Vial Sliding Scale - SQ Not Given ACHS [facility] Protocol Metoprolol Tartrate 100 mg 11/27/17 20:15 12/03/17 11:33 Lopressor - PO Not Given BID [facility] Metoprolol Tartrate 5 mg 11/29/17 15:51 12/01/17 12:46 Lopressor Injection - IVPUSH 5 mg Q4H PRN Administration TACHYCARDIA Polyethylene Glycol 17 gm 11/28/17 10:00 12/03/17 10:00 Miralax (For Daily Use) - PO Not Given DAILY [facility] Impression 1. hypernatremia 2. a-fib 3. CKD 4. dementia 5. HTN 6. BPH Plan - resume d5w at 100 cc per hour - cont to monitor labs - family declined ng tube - monitor urine output - will follow Dr Roy
[2017-12-03] MEDS: DEXTROSE 5%-WATER - 1,000 ML IV SCH (14:30)
--- NOTE | 2017-12-03 14:41 | PN ---
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 (short form) - Note 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: Patient seen and examined in the Telemetry unit. Remains lethargic. Mildly tachypneic on 3 L NC O2, but maintaining saturation. Rapid AFib. Intake & Output 11/30/17 12/01/17 12/02/17 12/03/17 23:59 23:59 23:59 23:59 Intake Total 670 2020 580 260 Output Total 900 775 600 Balance 670 1120 -195 -340 Weight 136 lb 8 oz 136 lb 3.2 oz 134 lb 0.657 oz 139 lb 2 oz Last Vital Signs Temp Pulse Resp BP Pulse Ox 99 F 56 L 20 155/70 100 12/03/17 12:57 12/03/17 12:57 12/03/17 12:57 12/03/17 12:57 12/03/17 00:05 Active Medications Acetaminophen (Ofirmev Injection -) 1,000 mg IVPB Q6H PRN PRN Reason: FEVER Last Admin: 11/29/17 17:48 Dose: 1,000 mg Docusate Sodium (Colace -) 100 mg PO BID [facility] Last Admin: 12/03/17 11:00 Dose: Not Given Hydralazine HCl (Apresoline Injection -) 10 mg IVPUSH Q4H PRN PRN Reason: FOR SBP>150 Last Admin: 12/01/17 06:41 Dose: 10 mg Piperacillin Sod/Tazobactam (Sod 2.25 gm/ Dextrose) 50 mls @ 100 mls/hr IVPB Q6H-IV [facility] PRN Reason: Protocol Last Admin: 12/03/17 03:26 Dose: 100 mls/hr Labetalol HCl 1,000 mg/ (Dextrose) 1,000 mls @ 120 mls/hr IV TITR SHAY; 2 MG/MIN PRN Reason: Protocol Last Admin: 12/02/17 21:05 Dose: Not Given Dextrose (D5w -) 1,000 mls @ 100 mls/hr IV ASDIR SHAY Insulin Aspart (Novolog Vial Sliding Scale -) 1 vial SQ ACHS [facility] PRN Reason: Protocol Last Admin: 12/03/17 12:46 Dose: Not Given Metoprolol Tartrate (Lopressor -) 100 mg PO BID [facility] Last Admin: 12/03/17 11:33 Dose: Not Given Metoprolol Tartrate (Lopressor Injection -) 5 mg IVPUSH Q4H PRN PRN Reason: TACHYCARDIA Last Admin: 12/01/17 12:46 Dose: 5 mg Polyethylene Glycol (Miralax (For Daily Use) -) 17 gm PO DAILY [facility] Last Admin: 12/03/17 10:00 Dose: Not Given Constitutional: Yes: Lethargic on NC O2, mildly tachypneic Eyes: Yes: Conjunctiva Clear, EOM Intact HENT: Yes: Atraumatic, Normocephalic Neck: Yes: Supple, Trachea Midline Cardiovascular: Yes: Tachycardia Respiratory: Yes: Accessory Muscle Use, NIPPV, Rhonchi, SOB, Tachypnea, Wheezes ...Inspection: Yes: WNL ...Clubbing: No Gastrointestinal: Yes: Normal Bowel Sounds, Soft Renal/: Yes: WNL Breast(s): Yes: WNL Musculoskeletal: Yes: WNL Extremities: Yes: WNL Edema: No Peripheral Pulses WNL: Yes Integumentary: Yes: WNL Neurological: Yes: Poorly responsive ...Motor Strength: WNL Psychiatric: Yes: Poorly responsive Labs: Laboratory Results - last 24 hr 12/02/17 12/02/17 12/03/17 13:58 22:13 06:47 WBC RBC Hgb Hct MCV MCH MCHC RDW Plt Count MPV Sodium Potassium Chloride Carbon Dioxide Anion Gap BUN Creatinine Creat Clearance w eGFR POC Glucometer 205.93567 275.14676 240.89241 Random Glucose Calcium Total Bilirubin AST ALT Alkaline Phosphatase Total Protein Albumin 12/03/17 12/03/17 12:21 12:21 WBC 11.8 H RBC 2.73 L Hgb 8.6 L Hct 26.4 L MCV 96.8 H MCH 31.5 MCHC 32.5 RDW 16.8 H Plt Count 302 MPV 9.2 Sodium 162 H* Potassium 3.5 Chloride 126 H Carbon Dioxide 24 Anion Gap 12 BUN 79 H Creatinine 3.2 H Creat Clearance w eGFR 18.60 POC Glucometer Random Glucose 195 H Calcium 8.0 L Total Bilirubin 0.5 AST 17 D ALT 22 D Alkaline Phosphatase 48 D Total Protein 4.8 L Albumin 2.1 L - Problems (1) Acute respiratory failure Code(s): J96.00 - ACUTE RESPIRATORY FAILURE, UNSP W HYPOXIA OR HYPERCAPNIA (2) BPH (benign prostatic hyperplasia) Code(s): N40.0 - BENIGN PROSTATIC HYPERPLASIA WITHOUT LOWER URINRY TRACT SYMP (3) CKD (chronic kidney disease) stage 3, GFR 30-59 ml/min Code(s): N18.3 - CHRONIC KIDNEY DISEASE, STAGE 3 (MODERATE) (4) Dementia Code(s): F03.90 - UNSPECIFIED DEMENTIA WITHOUT BEHAVIORAL DISTURBANCE (5) Fever Code(s): R50.9 - FEVER, UNSPECIFIED Qualifiers: Fever type: unspecified Qualified Code(s): R50.9 - Fever, unspecified (6) HLD (hyperlipidemia) Code(s): E78.5 - HYPERLIPIDEMIA, UNSPECIFIED (7) HTN (hypertension) Code(s): I10 - ESSENTIAL (PRIMARY) HYPERTENSION (8) Influenza Code(s): J11.1 - FLU DUE TO UNIDENTIFIED INFLUENZA VIRUS W OTH RESP MANIFEST (9) Pneumonia Code(s): J18.9 - PNEUMONIA, UNSPECIFIED ORGANISM Assessment/Plan Rate control per Cardiology O2 to maintain saturation NIPPV support if needed ABX coverage Aspiration precautions BD TX Monitor off steroids Strict & O DNR/DNI Need to discuss GOC with NOK Dr Aguayo Problem List - Problems (1) Acute respiratory failure Code(s): J96.00 - ACUTE RESPIRATORY FAILURE, UNSP W HYPOXIA OR HYPERCAPNIA (2) BPH (benign prostatic hyperplasia) Code(s): N40.0 - BENIGN PROSTATIC HYPERPLASIA WITHOUT LOWER URINRY TRACT SYMP (3) CKD (chronic kidney disease) stage 3, GFR 30-59 ml/min Code(s): N18.3 - CHRONIC KIDNEY DISEASE, STAGE 3 (MODERATE) (4) Dementia Code(s): F03.90 - UNSPECIFIED DEMENTIA WITHOUT BEHAVIORAL DISTURBANCE (5) Fever Code(s): R50.9 - FEVER, UNSPECIFIED Qualifiers: Fever type: unspecified Qualified Code(s): R50.9 - Fever, unspecified (6) HLD (hyperlipidemia) Code(s): E78.5 - HYPERLIPIDEMIA, UNSPECIFIED (7) HTN (hypertension) Code(s): I10 - ESSENTIAL (PRIMARY) HYPERTENSION (8) Influenza Code(s): J11.1 - FLU DUE TO UNIDENTIFIED INFLUENZA VIRUS W OTH RESP MANIFEST (9) Pneumonia Code(s): J18.9 - PNEUMONIA, UNSPECIFIED ORGANISM
--- NOTE | 2017-12-03 14:56 | PN ---
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, Physician History of Present Illness: Lethargic Offers no complaints Breathing non-labored on nasal cannula O2 - Current Medication List Current Medications: Active Medications Acetaminophen (Ofirmev Injection -) 1,000 mg IVPB Q6H PRN PRN Reason: FEVER Last Admin: 11/29/17 17:48 Dose: 1,000 mg Docusate Sodium (Colace -) 100 mg PO BID SHAY Last Admin: 12/03/17 11:00 Dose: Not Given Hydralazine HCl (Apresoline Injection -) 10 mg IVPUSH Q4H PRN PRN Reason: FOR SBP>150 Last Admin: 12/01/17 06:41 Dose: 10 mg Piperacillin Sod/Tazobactam (Sod 2.25 gm/ Dextrose) 50 mls @ 100 mls/hr IVPB Q6H-IV SHAY PRN Reason: Protocol Last Admin: 12/03/17 03:26 Dose: 100 mls/hr Labetalol HCl 1,000 mg/ (Dextrose) 1,000 mls @ 120 mls/hr IV TITR SHAY; 2 MG/MIN PRN Reason: Protocol Last Admin: 12/02/17 21:05 Dose: Not Given Dextrose (D5w -) 1,000 mls @ 100 mls/hr IV ASDIR SHAY Insulin Aspart (Novolog Vial Sliding Scale -) 1 vial SQ ACHS SHAY PRN Reason: Protocol Last Admin: 12/03/17 12:46 Dose: Not Given Metoprolol Tartrate (Lopressor -) 100 mg PO BID SHAY Last Admin: 12/03/17 11:33 Dose: Not Given Metoprolol Tartrate (Lopressor Injection -) 5 mg IVPUSH Q4H PRN PRN Reason: TACHYCARDIA Last Admin: 12/01/17 12:46 Dose: 5 mg Polyethylene Glycol (Miralax (For Daily Use) -) 17 gm PO DAILY SHAY Last Admin: 12/03/17 10:00 Dose: Not Given - Objective Vital Signs: Vital Signs Temperature 99 F 12/03/17 12:57 Pulse Rate 56 L 12/03/17 12:57 Respiratory Rate 20 12/03/17 12:57 Blood Pressure 155/70 12/03/17 12:57 O2 Sat by Pulse Oximetry (%) 100 12/03/17 10:00 Constitutional: Yes: No Distress, Pallor Cardiovascular: Yes: Regular Rate and Rhythm, S1, S2 Respiratory: Yes: Diminished Gastrointestinal: Yes: Normal Bowel Sounds, Soft. No: Tenderness Edema: No Labs: CBC, BMP 12/03/17 12:21 12/03/17 12:21 INR, PTT INR 1.03 (0.82-1.09) 11/25/17 17:24 Assessment/Plan Pneumonia ? Influenza Afib PATRICIO OBS Continue empiric zosyn/ vancomycin, adjusted for renal failure
[2017-12-03] MEDS ORDERED: PT OWN MED DRAWER 7, Y5N ONE ×2 (18:37→23:57)
[2017-12-03] MEDS: LABETALOL HCL INJECTION 1,000 MG in DEXTROSE 5%-WATER - 800 ML IV SCH (18:49)
[2017-12-03] MEDS: hydrALAZINE HCL 20 MG/ML VIAL IVPUSH PRN (18:51)
[2017-12-04] MEDS: ACETAMINOPHEN 1000 MG/100 ML VIAL (NON FORMULARY) IVPB PRN ×2 (00:01→13:47)
[2017-12-04] MEDS: INSULIN SLIDING SCALE (NOVOLOG) 1 VIAL SQ SCH ×5 (00:56→22:21)
[2017-12-04] MEDS: PIPERACILLIN/TAZOB 2.25 GM 2.25 GM in DEXTROSE 5%-WATER - 50 ML IVPB SCH ×4 (03:00→22:17)
[2017-12-04] MEDS: DOCUSATE SODIUM 100 MG CAPSULE (FP) PO SCH ×2 (10:13→22:21)
[2017-12-04] MEDS: METOPROLOL TARTRATE 50 MG TABLET (FP) PO SCH ×3 (10:13→22:21)
[2017-12-04] MEDS: hydrALAZINE HCL 20 MG/ML VIAL IVPUSH PRN ×3 (10:42→22:22)
--- NOTE | 2017-12-04 10:47 | PN ---
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 (short form) - Note 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: CC: pna/sepsis s: lethargic, non communicative, remains npo, no overnight events o: Vital Signs Period Temp Pulse Resp BP Sys/Cannon Pulse Ox Last 24 Hr 97.8 F-99 F 56-69 18-22 151-179/56-70 95-100 nad no jvd, neck supple + rhonchi, weak eff. using accessory muscles. lethargic no jaundice diaphoresis abd nd pos bs rrr s1s2 no mrg no le e/c/c Current Medications Generic Name Dose Route Start Last Admin Trade Name Freq PRN Reason Stop Dose Admin Acetaminophen 1,000 mg 11/29/17 16:27 12/04/17 00:01 Ofirmev Injection - IVPB 1,000 mg Q6H PRN Administration FEVER Docusate Sodium 100 mg 11/28/17 10:00 12/03/17 23:58 Colace - PO 100 mg BID SHAY Administration Hydralazine HCl 10 mg 11/27/17 20:01 12/04/17 10:42 Apresoline Injection - IVPUSH 10 mg Q4H PRN Administration FOR SBP>150 Piperacillin Sod/Tazobactam 50 mls @ 100 mls/hr 11/30/17 09:00 12/04/17 03:00 Sod 2.25 gm/ Dextrose IVPB 100 mls/hr Q6H-IV SHAY Administration Protocol Labetalol HCl 1,000 mg/ 1,000 mls @ 120 mls/hr 12/01/17 18:00 12/03/17 18:49 Dextrose IV Not Given TITR SHAY Protocol 2 MG/MIN Dextrose 1,000 mls @ 100 mls/hr 12/03/17 14:30 12/03/17 14:30 D5w - IV 100 mls/hr ASDIR SHAY Administration Insulin Aspart 1 vial 12/01/17 22:00 12/04/17 06:25 Novolog Vial Sliding Scale - SQ 8 units ACHS SHAY Administration Protocol Metoprolol Tartrate 100 mg 11/27/17 20:15 12/04/17 00:00 Lopressor - PO Not Given BID SHAY Metoprolol Tartrate 5 mg 11/29/17 15:51 12/01/17 12:46 Lopressor Injection - IVPUSH 5 mg Q4H PRN Administration TACHYCARDIA Polyethylene Glycol 17 gm 11/28/17 10:00 12/03/17 10:00 Miralax (For Daily Use) - PO Not Given DAILY SHAY CBC, BMP 12/03/17 12:21 12/03/17 12:21 ecg: afib rvr, nl qtc, no ischemic changes tele: sr echo 11/2017: nl lv/rv, mild lvh, mild lae, mild mr/tr/ar/pr. cxr: worsening infiltrates, congestion repeat cxr 11/30: slightly improved aeration repeat cxr 12/01: worsening congestion and layering effusions (by my review), per report: increased pleural and pulmonary changes. a/p: 82 m hx dementia, htn, hld, ckd sent from long term for fever now with presumed flu/pna/sepsis/bacteremia. pafib: -11/30 in sr now, episodes of rvr at times. resumed cardizem gtt. continues on po lopressor. wean drip as tolerated (if continues to be able to take po meds) - 12/01: now unable to take po meds. cardizem gtt not controlling heart rate or bp. Will change to labetolol drip with prn iv lopressor. -12/02-: in sr now. cont same iv bb for rate control since remains npo -12/04: remains npo so has been on labetalol gtt but now in sr with erma so bb gtt held, cont tele -[facility] warrants ac but pt with anemia here (unknown baseline) and dementia so unclear if he is good candidate for ac. can readdress if clinical status improves. -echo unremarkable htn: - cont iv meds as he remains npo-->hr slow on iv labetalol so giving hydralazine iv now hld: -resume statin when acute issues resolve. dk, ckd, hypernatremia: -cr and sodium continue to rise. uri/pna/bacteremia/sepsis, possible flu: -abx per ID trop elevation: -borderline trop elevation, does not appear to be acs -echo unremarkable GOC - discussions ongoing. Family does not want NG tube placed at this time.
--- NOTE | 2017-12-04 10:47 | PN ---
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 Asked if he was hungry and readily nodded yes. Swallow reassess with mildly delayed but fairly brisk swallow reflex. Selected Entries 12/03/17 12/03/17 12/03/17 02:00 06:00 10:16 Breakfast NPO Temperature 97.6 F 98.7 F 12/03/17 12/04/17 12/04/17 12:57 02:00 06:00 Breakfast Temperature 99 F 97.8 F 98.2 F Laboratory Tests 12/01/17 12/02/17 12/03/17 05:30 06:10 12:21 WBC 14.7 H 16.3 H 11.8 H REC: Mouth care before meals Trial of puree/extra gravy and honey thick liquid Magic cup/Ensure compact. Monitor tolerance
--- NOTE | 2017-12-04 12:29 | PN ---
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 (short form) - Note 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: nonverbal today off bipap Vital Signs Period Temp Pulse Resp BP Sys/Cannon Pulse Ox Last 24 Hr 97.8 F-99 F 56-69 18-22 151-179/56-70 95-100 cor-rrr lungs decreased bs at bases abd soft,nt ext no edema CBC, BMP 12/03/17 12:21 12/03/17 12:21 Current Medications Acetaminophen (Ofirmev Injection -) 1,000 mg IVPB Q6H PRN PRN Reason: FEVER Last Admin: 12/04/17 00:01 Dose: 1,000 mg Docusate Sodium (Colace -) 100 mg PO BID SHAY Last Admin: 12/03/17 23:58 Dose: 100 mg Hydralazine HCl (Apresoline Injection -) 10 mg IVPUSH Q4H PRN PRN Reason: FOR SBP>150 Last Admin: 12/04/17 10:42 Dose: 10 mg Piperacillin Sod/Tazobactam (Sod 2.25 gm/ Dextrose) 50 mls @ 100 mls/hr IVPB Q6H-IV SHAY PRN Reason: Protocol Last Admin: 12/04/17 10:52 Dose: 100 mls/hr Labetalol HCl 1,000 mg/ (Dextrose) 1,000 mls @ 120 mls/hr IV TITR SHAY; 2 MG/MIN PRN Reason: Protocol Last Admin: 12/03/17 18:49 Dose: Not Given Dextrose (D5w -) 1,000 mls @ 100 mls/hr IV ASDIR SHAY Last Admin: 12/03/17 14:30 Dose: 100 mls/hr Insulin Aspart (Novolog Vial Sliding Scale -) 1 vial SQ ACHS SHAY PRN Reason: Protocol Last Admin: 12/04/17 06:25 Dose: 8 units Metoprolol Tartrate (Lopressor -) 100 mg PO BID SHAY Last Admin: 12/04/17 00:00 Dose: Not Given Metoprolol Tartrate (Lopressor Injection -) 5 mg IVPUSH Q4H PRN PRN Reason: TACHYCARDIA Last Admin: 12/01/17 12:46 Dose: 5 mg Polyethylene Glycol (Miralax (For Daily Use) -) 17 gm PO DAILY SHAY Last Admin: 12/03/17 10:00 Dose: Not Given a/p RLL pneumonia- continue zosyn day #4 s/p influenza A CKD plan 7 days total antibiotics
--- NOTE | 2017-12-04 12:51 | PN ---
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 (short form) - Note 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: Patient seen and examined in the Telemetry unit. Remains lethargic but arousable. Remains mildly tachypneic on NC O2. AFib. Intake & Output 12/01/17 12/02/17 12/03/17 12/04/17 23:59 23:59 23:59 23:59 Intake Total 2020 580 1940 Output Total 900 775 600 800 Balance 1120 -195 1340 -800 Weight 136 lb 3.2 oz 134 lb 0.657 oz 139 lb 2 oz 133 lb 9.6 oz Last Vital Signs Temp Pulse Resp BP Pulse Ox 98.2 F 56 L 18 151/56 95 12/04/17 06:00 12/04/17 06:00 12/04/17 06:00 12/04/17 06:00 12/04/17 09:34 Active Medications Acetaminophen (Ofirmev Injection -) 1,000 mg IVPB Q6H PRN PRN Reason: FEVER Last Admin: 12/04/17 00:01 Dose: 1,000 mg Docusate Sodium (Colace -) 100 mg PO BID SHAY Last Admin: 12/03/17 23:58 Dose: 100 mg Hydralazine HCl (Apresoline Injection -) 10 mg IVPUSH Q4H PRN PRN Reason: FOR SBP>150 Last Admin: 12/04/17 10:42 Dose: 10 mg Piperacillin Sod/Tazobactam (Sod 2.25 gm/ Dextrose) 50 mls @ 100 mls/hr IVPB Q6H-IV SHAY PRN Reason: Protocol Last Admin: 12/04/17 10:52 Dose: 100 mls/hr Labetalol HCl 1,000 mg/ (Dextrose) 1,000 mls @ 120 mls/hr IV TITR SHAY; 2 MG/MIN PRN Reason: Protocol Last Admin: 12/03/17 18:49 Dose: Not Given Dextrose (D5w -) 1,000 mls @ 100 mls/hr IV ASDIR SHAY Last Admin: 12/03/17 14:30 Dose: 100 mls/hr Insulin Aspart (Novolog Vial Sliding Scale -) 1 vial SQ ACHS SHAY PRN Reason: Protocol Last Admin: 12/04/17 06:25 Dose: 8 units Metoprolol Tartrate (Lopressor -) 100 mg PO BID SHAY Last Admin: 12/04/17 00:00 Dose: Not Given Metoprolol Tartrate (Lopressor Injection -) 5 mg IVPUSH Q4H PRN PRN Reason: TACHYCARDIA Last Admin: 12/01/17 12:46 Dose: 5 mg Polyethylene Glycol (Miralax (For Daily Use) -) 17 gm PO DAILY SHAY Last Admin: 12/03/17 10:00 Dose: Not Given Constitutional: Yes: Lethargic but arousable on NC O2, mildly tachypneic Eyes: Yes: Conjunctiva Clear, EOM Intact HENT: Yes: Atraumatic, Normocephalic Neck: Yes: Supple, Trachea Midline Cardiovascular: Yes: Tachycardia Respiratory: Yes: bilateral Rhonchi, Mild tachypnea. No Wheezes ...Inspection: Yes: WNL ...Clubbing: No Gastrointestinal: Yes: Normal Bowel Sounds, Soft Renal/: Yes: WNL Breast(s): Yes: WNL Musculoskeletal: Yes: WNL Extremities: Yes: WNL Edema: No Peripheral Pulses WNL: Yes Integumentary: Yes: WNL Neurological: Yes: :Lethargic ...Motor Strength: WNL Psychiatric: Yes: Lethargic Labs: Laboratory Results - last 24 hr 12/03/17 12/03/17 12/03/17 12:21 12:21 18:55 WBC 11.8 H RBC 2.73 L Hgb 8.6 L Hct 26.4 L MCV 96.8 H MCH 31.5 MCHC 32.5 RDW 16.8 H Plt Count 302 MPV 9.2 Sodium 162 H* Potassium 3.5 Chloride 126 H Carbon Dioxide 24 Anion Gap 12 BUN 79 H Creatinine 3.2 H Creat Clearance w eGFR 18.60 POC Glucometer 316.36512 Random Glucose 195 H Calcium 8.0 L Total Bilirubin 0.5 AST 17 D ALT 22 D Alkaline Phosphatase 48 D Total Protein 4.8 L Albumin 2.1 L Random Vancomycin 12/03/17 12/04/17 12/04/17 23:18 00:11 05:05 WBC RBC Hgb Hct MCV MCH MCHC RDW Plt Count MPV Sodium Potassium Chloride Carbon Dioxide Anion Gap BUN Creatinine Creat Clearance w eGFR POC Glucometer 218.81448 292.56131 Random Glucose Calcium Total Bilirubin AST ALT Alkaline Phosphatase Total Protein Albumin Random Vancomycin 13.261 12/04/17 12/04/17 05:40 11:45 WBC RBC Hgb Hct MCV MCH MCHC RDW Plt Count MPV Sodium Potassium Chloride Carbon Dioxide Anion Gap BUN Creatinine Creat Clearance w eGFR POC Glucometer [phone] Random Glucose Calcium Total Bilirubin AST ALT Alkaline Phosphatase Total Protein Albumin Random Vancomycin - Problems (1) Acute respiratory failure Code(s): J96.00 - ACUTE RESPIRATORY FAILURE, UNSP W HYPOXIA OR HYPERCAPNIA (2) BPH (benign prostatic hyperplasia) Code(s): N40.0 - BENIGN PROSTATIC HYPERPLASIA WITHOUT LOWER URINRY TRACT SYMP (3) CKD (chronic kidney disease) stage 3, GFR 30-59 ml/min Code(s): N18.3 - CHRONIC KIDNEY DISEASE, STAGE 3 (MODERATE) (4) Dementia Code(s): F03.90 - UNSPECIFIED DEMENTIA WITHOUT BEHAVIORAL DISTURBANCE (5) Fever Code(s): R50.9 - FEVER, UNSPECIFIED Qualifiers: Fever type: unspecified Qualified Code(s): R50.9 - Fever, unspecified (6) HLD (hyperlipidemia) Code(s): E78.5 - HYPERLIPIDEMIA, UNSPECIFIED (7) HTN (hypertension) Code(s): I10 - ESSENTIAL (PRIMARY) HYPERTENSION (8) Influenza Code(s): J11.1 - FLU DUE TO UNIDENTIFIED INFLUENZA VIRUS W OTH RESP MANIFEST (9) Pneumonia Code(s): J18.9 - PNEUMONIA, UNSPECIFIED ORGANISM Assessment/Plan Rate control per Cardiology O2 to maintain saturation NIPPV support if needed ABX coverage Aspiration precautions BD TX Monitor off steroids Strict & O DNR/DNI Dr Aguayo Problem List - Problems (1) Acute respiratory failure Code(s): J96.00 - ACUTE RESPIRATORY FAILURE, UNSP W HYPOXIA OR HYPERCAPNIA (2) BPH (benign prostatic hyperplasia) Code(s): N40.0 - BENIGN PROSTATIC HYPERPLASIA WITHOUT LOWER URINRY TRACT SYMP (3) CKD (chronic kidney disease) stage 3, GFR 30-59 ml/min Code(s): N18.3 - CHRONIC KIDNEY DISEASE, STAGE 3 (MODERATE) (4) Dementia Code(s): F03.90 - UNSPECIFIED DEMENTIA WITHOUT BEHAVIORAL DISTURBANCE (5) Fever Code(s): R50.9 - FEVER, UNSPECIFIED Qualifiers: Fever type: unspecified Qualified Code(s): R50.9 - Fever, unspecified (6) HLD (hyperlipidemia) Code(s): E78.5 - HYPERLIPIDEMIA, UNSPECIFIED (7) HTN (hypertension) Code(s): I10 - ESSENTIAL (PRIMARY) HYPERTENSION (8) Influenza Code(s): J11.1 - FLU DUE TO UNIDENTIFIED INFLUENZA VIRUS W OTH RESP MANIFEST (9) Pneumonia Code(s): J18.9 - PNEUMONIA, UNSPECIFIED ORGANISM
[2017-12-04] MEDS: DEXTROSE 5%-WATER - 1,000 ML IV SCH (15:12)
[2017-12-04] MEDS: POLYETHYLENE GLYCOL 3350 119 GM BTL PO SCH (15:13)
--- NOTE | 2017-12-04 15:45 | PN ---
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 (short form) - Note 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: seen and examined in room on 2L n/c / less dyspneic / lethargic on no IV meds for hr / htn now discussed care of plan with goals are for comfort care / no aggressive intervention would like ultimately transferred to [place] Intake & Output 12/01/17 12/02/17 12/03/17 12/04/17 23:59 23:59 23:59 23:59 Intake Total 2020 580 1940 1000 Output Total 900 775 600 800 Balance 1120 -195 1340 200 Weight 136 lb 3.2 oz 134 lb 0.657 oz 139 lb 2 oz 133 lb 9.6 oz neck supple heart s1/s2 Luns scattered rhonchi right > left abd soft non tender ext no edema CBC, BMP 12/03/17 12:21 12/03/17 12:21 Microbiology 11/26/17 12:00 Nasopharyngeal Swab Respiratory Virus (PCR) - Final 11/25/17 17:12 Blood - Peripheral Venous Blood Culture - Final NO GROWTH AFTER 5 DAYS INCUBATION 11/25/17 17:24 Blood - Peripheral Venous Blood Culture - Final Pediococcus Pentosaceus 11/25/17 18:32 Urine - Urine Clean Catch Urine Culture - Final NO GROWTH OBTAINED 11/26/17 12:00 Nasopharyngeal Swab Influenza Types A,B Antigen (JEREMY) - Final 11/26/17 12:00 Nasopharyngeal Swab - Final Active Medications Acetaminophen (Ofirmev Injection -) 1,000 mg IVPB Q6H PRN PRN Reason: FEVER Last Admin: 12/04/17 13:47 Dose: 1,000 mg Docusate Sodium (Colace -) 100 mg PO BID SHAY Last Admin: 12/04/17 10:13 Dose: Not Given Hydralazine HCl (Apresoline Injection -) 10 mg IVPUSH Q4H PRN PRN Reason: FOR SBP>150 Last Admin: 12/04/17 10:42 Dose: 10 mg Piperacillin Sod/Tazobactam (Sod 2.25 gm/ Dextrose) 50 mls @ 100 mls/hr IVPB Q6H-IV SHAY PRN Reason: Protocol Last Admin: 12/04/17 15:12 Dose: 100 mls/hr Labetalol HCl 1,000 mg/ (Dextrose) 1,000 mls @ 120 mls/hr IV TITR SHAY; 2 MG/MIN PRN Reason: Protocol Last Admin: 12/03/17 18:49 Dose: Not Given Dextrose (D5w -) 1,000 mls @ 100 mls/hr IV ASDIR SHAY Last Admin: 12/04/17 15:12 Dose: 100 mls/hr Insulin Aspart (Novolog Vial Sliding Scale -) 1 vial SQ ACHS SHAY PRN Reason: Protocol Last Admin: 12/04/17 13:17 Dose: Not Given Metoprolol Tartrate (Lopressor -) 100 mg PO BID SHAY Last Admin: 12/04/17 10:13 Dose: Not Given Metoprolol Tartrate (Lopressor Injection -) 5 mg IVPUSH Q4H PRN PRN Reason: TACHYCARDIA Last Admin: 12/01/17 12:46 Dose: 5 mg Polyethylene Glycol (Miralax (For Daily Use) -) 17 gm PO DAILY [facility] Last Admin: 12/04/17 15:13 Dose: Not Given # hypernatremia / improving intravascular depletion / dehydration inc free water would benefit from NGT - family declines follow Na # + blood c/s - follow up cultures has been febrile ABX per ID # PAF A fib with RVR - improved control on BB--HR in the 60's # Inc TNI #CKD -getting worse # HTN better control # Hypokalemia replace lytes as needed # Dementia long standing at baseline overall poor prognosis Long discussion with -- plans are for comfort care - and transfer to [place] for end of life will d/c telemetry and transfer to medical sahu pending transfer to [facility] ICU attending and Cardio notified of plans Problem List - Problems (1) Acute hypernatremia Code(s): E87.0 - HYPEROSMOLALITY AND HYPERNATREMIA (2) Acute tracheobronchitis Code(s): J20.9 - ACUTE BRONCHITIS, UNSPECIFIED (3) Acute respiratory failure Code(s): J96.00 - ACUTE RESPIRATORY FAILURE, UNSP W HYPOXIA OR HYPERCAPNIA (4) Dementia Code(s): F03.90 - UNSPECIFIED DEMENTIA WITHOUT BEHAVIORAL DISTURBANCE (5) HTN (hypertension) Code(s): I10 - ESSENTIAL (PRIMARY) HYPERTENSION (6) HLD (hyperlipidemia) Code(s): E78.5 - HYPERLIPIDEMIA, UNSPECIFIED (7) BPH (benign prostatic hyperplasia) Code(s): N40.0 - BENIGN PROSTATIC HYPERPLASIA WITHOUT LOWER URINRY TRACT SYMP (8) CKD (chronic kidney disease) stage 3, GFR 30-59 ml/min Code(s): N18.3 - CHRONIC KIDNEY DISEASE, STAGE 3 (MODERATE)
[2017-12-04 17:18] LABS: ANION GAP 10 (8-16); BLOOD UREA NITROGEN 57 mg/dL (7-18); CALCIUM 7.6 mg/dL (8.5-10.1); CHLORIDE 122 mmol/L (98-107); CO2 22 mmol/L (21-32); CREATININE 2.7 mg/dL (0.7-1.3); GLUCOSE,RANDOM 262 mg/dL (74-106); POTASSIUM 3.1 mmol/L (3.5-5.1); SODIUM 154 mmol/L (136-145)
--- NOTE | 2017-12-04 17:42 | PN ---
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, Physician History of Present Illness: Pt seen and examined at bedside. He appears comfortable. No great change in status. - Current Medication List Current Medications: Active Medications Acetaminophen (Ofirmev Injection -) 1,000 mg IVPB Q6H PRN PRN Reason: FEVER Last Admin: 12/04/17 13:47 Dose: 1,000 mg Docusate Sodium (Colace -) 100 mg PO BID SHAY Last Admin: 12/04/17 10:13 Dose: Not Given Hydralazine HCl (Apresoline Injection -) 10 mg IVPUSH Q4H PRN PRN Reason: FOR SBP>150 Last Admin: 12/04/17 17:13 Dose: 10 mg Piperacillin Sod/Tazobactam (Sod 2.25 gm/ Dextrose) 50 mls @ 100 mls/hr IVPB Q6H-IV SHAY PRN Reason: Protocol Last Admin: 12/04/17 15:12 Dose: 100 mls/hr Labetalol HCl 1,000 mg/ (Dextrose) 1,000 mls @ 120 mls/hr IV TITR SHAY; 2 MG/MIN PRN Reason: Protocol Last Admin: 12/03/17 18:49 Dose: Not Given Dextrose (D5w -) 1,000 mls @ 100 mls/hr IV ASDIR SHAY Last Admin: 12/04/17 15:12 Dose: 100 mls/hr Insulin Aspart (Novolog Vial Sliding Scale -) 1 vial SQ ACHS SHAY PRN Reason: Protocol Last Admin: 12/04/17 13:17 Dose: Not Given Metoprolol Tartrate (Lopressor -) 100 mg PO BID SHAY Last Admin: 12/04/17 10:13 Dose: Not Given Metoprolol Tartrate (Lopressor Injection -) 5 mg IVPUSH Q4H PRN PRN Reason: TACHYCARDIA Last Admin: 12/01/17 12:46 Dose: 5 mg Polyethylene Glycol (Miralax (For Daily Use) -) 17 gm PO DAILY [facility] Last Admin: 12/04/17 15:13 Dose: Not Given - Objective Vital Signs: Vital Signs Temperature 98.1 F 12/04/17 10:00 Pulse Rate 41 L 12/04/17 10:00 Respiratory Rate 18 12/04/17 10:00 Blood Pressure 163/56 12/04/17 10:00 O2 Sat by Pulse Oximetry (%) 95 12/04/17 09:34 Constitutional: Yes: Calm Eyes: Yes: Conjunctiva Clear HENT: Yes: Atraumatic Cardiovascular: Yes: S1, S2 Respiratory: Yes: On Nasal O2, Rhonchi Gastrointestinal: Yes: Soft Genitourinary: Yes: Pink Present Musculoskeletal: Yes: Muscle Weakness Edema: No Neurological: Yes: Confusion Labs: CBC, BMP 12/03/17 12:21 12/04/17 16:35 INR, PTT INR 1.03 (0.82-1.09) 11/25/17 17:24 Problem List - Problems (1) Acute hypernatremia Code(s): E87.0 - HYPEROSMOLALITY AND HYPERNATREMIA (2) BPH (benign prostatic hyperplasia) Code(s): N40.0 - BENIGN PROSTATIC HYPERPLASIA WITHOUT LOWER URINRY TRACT SYMP (3) CKD (chronic kidney disease) stage 3, GFR 30-59 ml/min Code(s): N18.3 - CHRONIC KIDNEY DISEASE, STAGE 3 (MODERATE) (4) Dementia Code(s): F03.90 - UNSPECIFIED DEMENTIA WITHOUT BEHAVIORAL DISTURBANCE (5) Fever Code(s): R50.9 - FEVER, UNSPECIFIED Qualifiers: Fever type: unspecified Qualified Code(s): R50.9 - Fever, unspecified Assessment/Plan Current Medications Generic Name Dose Route Start Last Admin Trade Name Freq PRN Reason Stop Dose Admin Acetaminophen 1,000 mg 11/29/17 16:27 12/04/17 13:47 Ofirmev Injection - IVPB 1,000 mg Q6H PRN Administration FEVER Docusate Sodium 100 mg 11/28/17 10:00 12/04/17 10:13 Colace - PO Not Given BID SHAY Hydralazine HCl 10 mg 11/27/17 20:01 12/04/17 17:13 Apresoline Injection - IVPUSH 10 mg Q4H PRN Administration FOR SBP>150 Piperacillin Sod/Tazobactam 50 mls @ 100 mls/hr 11/30/17 09:00 12/04/17 15:12 Sod 2.25 gm/ Dextrose IVPB 100 mls/hr Q6H-IV SHAY Administration Protocol Labetalol HCl 1,000 mg/ 1,000 mls @ 120 mls/hr 12/01/17 18:00 12/03/17 18:49 Dextrose IV Not Given TITR SHAY Protocol 2 MG/MIN Dextrose 1,000 mls @ 100 mls/hr 12/03/17 14:30 12/04/17 15:12 D5w - IV 100 mls/hr ASDIR SHAY Administration Insulin Aspart 1 vial 12/01/17 22:00 12/04/17 13:17 Novolog Vial Sliding Scale - SQ Not Given ACHS SHAY Protocol Metoprolol Tartrate 100 mg 11/27/17 20:15 12/04/17 10:13 Lopressor - PO Not Given BID [facility] Metoprolol Tartrate 5 mg 11/29/17 15:51 12/01/17 12:46 Lopressor Injection - IVPUSH 5 mg Q4H PRN Administration TACHYCARDIA Polyethylene Glycol 17 gm 11/28/17 10:00 12/04/17 15:13 Miralax (For Daily Use) - PO Not Given DAILY [facility] Impression 1. hypernatremia 2. a-fib 3. CKD 4. dementia 5. HTN 6. BPH Plan - will decrease rate of fluids - replace potassium - repeat labs in am - check mag - renal function is improving - will follow Dr Roy
[2017-12-04] MEDS ORDERED: DEXTROSE 5%-WATER - 1,000 ML with POTASSIUM CHLORIDE 10 MEQ IVPB SCH (17:43)
[2017-12-04] MEDS ORDERED: POTASSIUM CHLORIDE TABS 20 MEQ TABLET.ER (FP) PO ONE (17:44)
[2017-12-04] MEDS: LABETALOL HCL INJECTION 1,000 MG in DEXTROSE 5%-WATER - 800 ML IV SCH (18:17)
[2017-12-04] MEDS ORDERED: INSULIN (NOVOLOG) ASPART 100 UNITS/ML 10ML VIAL ONE (20:56)
[2017-12-04] MEDS ORDERED: PT OWN MED DRAWER 7, Y5N ONE (21:08)
[2017-12-04] MEDS: POTASSIUM CHLORIDE 10 MEQ in DEXTROSE 5%-WATER - 1,000 ML IVPB SCH (22:16)
[2017-12-05] MEDS: PIPERACILLIN/TAZOB 2.25 GM 2.25 GM in DEXTROSE 5%-WATER - 50 ML IVPB SCH ×3 (02:00→16:18)
[2017-12-05] MEDS: hydrALAZINE HCL 20 MG/ML VIAL IVPUSH PRN ×3 (02:13→09:48)
[2017-12-05] MEDS: POTASSIUM CHLORIDE 10 MEQ in DEXTROSE 5%-WATER - 1,000 ML IVPB SCH (05:30)
[2017-12-05] MEDS: INSULIN SLIDING SCALE (NOVOLOG) 1 VIAL SQ SCH ×3 (06:13→17:17)
[2017-12-05 07:39] LABS: ANION GAP 10 (8-16); BLOOD UREA NITROGEN 45 mg/dL (7-18); CALCIUM 7.5 mg/dL (8.5-10.1); CHLORIDE 121 mmol/L (98-107); CO2 23 mmol/L (21-32); CREATININE 2.4 mg/dL (0.7-1.3); GLUCOSE,RANDOM 213 mg/dL (74-106); MAGNESIUM 1.7 mg/dL (1.8-2.4); POTASSIUM 3.3 mmol/L (3.5-5.1); SODIUM 154 mmol/L (136-145)
[2017-12-05 08:47] VITALS: TEMP 97.8
[2017-12-05] MEDS: POLYETHYLENE GLYCOL 3350 119 GM BTL PO SCH (09:49)
[2017-12-05] MEDS: DOCUSATE SODIUM 100 MG CAPSULE (FP) PO SCH (09:49)
[2017-12-05] MEDS: METOPROLOL TARTRATE 50 MG TABLET (FP) PO SCH (09:49)
--- NOTE | 2017-12-05 10:05 | PN ---
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, Physician History of Present Illness: Transfered from ICU to medicine On tele floor but not on tele (as requested) No other events overnight - Current Medication List Current Medications: Active Medications Acetaminophen (Ofirmev Injection -) 1,000 mg IVPB Q6H PRN PRN Reason: FEVER Last Admin: 12/04/17 13:47 Dose: 1,000 mg Docusate Sodium (Colace -) 100 mg PO BID [facility] Last Admin: 12/05/17 09:49 Dose: Not Given Hydralazine HCl (Apresoline Injection -) 10 mg IVPUSH Q4H PRN PRN Reason: FOR SBP>150 Last Admin: 12/05/17 09:48 Dose: 10 mg Piperacillin Sod/Tazobactam (Sod 2.25 gm/ Dextrose) 50 mls @ 100 mls/hr IVPB Q6H-IV SHAY PRN Reason: Protocol Last Admin: 12/05/17 09:41 Dose: 100 mls/hr Potassium Chloride 10 meq/ (Dextrose) 1,005 mls @ 83.75 mls/hr IVPB Q12H [facility] Last Admin: 12/05/17 05:30 Dose: Not Given Insulin Aspart (Novolog Vial Sliding Scale -) 1 vial SQ ACHS SHAY PRN Reason: Protocol Last Admin: 12/05/17 06:13 Dose: 4 units Metoprolol Tartrate (Lopressor -) 100 mg PO BID [facility] Last Admin: 12/05/17 09:49 Dose: Not Given Metoprolol Tartrate (Lopressor Injection -) 5 mg IVPUSH Q4H PRN PRN Reason: TACHYCARDIA Last Admin: 12/01/17 12:46 Dose: 5 mg Polyethylene Glycol (Miralax (For Daily Use) -) 17 gm PO DAILY [facility] Last Admin: 12/05/17 09:49 Dose: Not Given - Objective Vital Signs: Vital Signs Temperature 97.8 F 12/05/17 08:00 Pulse Rate 76 12/05/17 08:00 Respiratory Rate 20 12/05/17 08:48 Blood Pressure 161/80 12/05/17 08:00 O2 Sat by Pulse Oximetry (%) 99 12/05/17 08:48 Constitutional: Yes: No Distress, Other (Mildy dyspneic) Eyes: Yes: WNL HENT: Yes: WNL Neck: Yes: WNL Cardiovascular: Yes: Regular Rate and Rhythm Respiratory: Yes: CTA Bilaterally Extremities: Yes: WNL Edema: Yes Edema: RUE: 1+, LLE: 1+ Labs: CBC, BMP 12/03/17 12:21 12/05/17 05:10 INR, PTT INR 1.03 (0.82-1.09) 11/25/17 17:24 Assessment/Plan a/p: 82 m hx dementia, htn, hld, ckd sent from [facility] for fever now with presumed flu/pna/sepsis/bacteremia. pafib: -Off Labatelol gtt, off tele -chadsvasc warrants ac but pt with anemia here (unknown baseline) and dementia so unclear if he is good candidate for ac. -Now made DNR/DNR and no aggressive measures per Dr. Medrano -echo unremarkable htn: - Continue IV Hydralazine hld: -resume statin when acute issues resolve. uri/pna/bacteremia/sepsis, possible flu: -abx per ID GOC - As addressed by Dr. Medrano -Awaiting bed at [facility]
--- NOTE | 2017-12-05 10:56 | DS ---
Physical Examination Vital Signs: Vital Signs Temperature 97.8 F 12/05/17 08:00 Pulse Rate 81 12/05/17 10:00 Respiratory Rate 20 12/05/17 10:00 Blood Pressure 158/72 12/05/17 10:00 O2 Sat by Pulse Oximetry (%) 99 12/05/17 10:00 Findings/Remarks: Patient is an 82M with history of dementia, HTN, HLD and BPH sent from [facility] due to 2 days of fever, today to 103. [facility] moist cough and more withdrawn. Patient has hx of dementia and is unreliable historian, and unable to provide any hx or complaint. Patient decompensated - hypoxic / tachycardic - required IV medication for HR and HTN control- c/w sepsis 2/2 influenza / PNA - hospitalization complicated by decompensated Renal function/ uncontrolled HTN / uncontrolled HR ( afib with RVR) /heart failure / hypernatremia / eletrolye imbalace /fever. He has been treated for all complications along with appropriate consultations. Lizzy provides for patients wishes of supportive care only. She has requested arrangements for supportive care only and transfer to [place]. Constitutional: Yes: Calm, Thin Eyes: Yes: Conjunctiva Clear, EOM Intact HENT: Yes: Atraumatic, Normocephalic Neck: Yes: Supple, Trachea Midline Cardiovascular: Yes: Regular Rate and Rhythm Respiratory: Yes: Diminished, Rhonchi. No: Stridor Gastrointestinal: Yes: Normal Bowel Sounds, Soft ...Rectal Exam: Yes: Deferred Renal/: Yes: WNL Breast(s): Yes: WNL Extremities: No: Cold, Cool, Deformity Edema: No Edema: LLE: Trace, RLE: Trace Peripheral Pulses WNL: Yes Integumentary: Yes: WNL Neurological: Yes: Lethargy, Pre-Existing Deficit Labs: CBC, BMP 12/03/17 12:21 12/05/17 05:10 Discharge Summary Reason For Visit: FEVER Current Active Problems Acute hypernatremia (Acute) Acute respiratory failure (Acute) Acute tracheobronchitis (Acute) BPH (benign prostatic hyperplasia) (Acute) CKD (chronic kidney disease) stage 3, GFR 30-59 ml/min (Acute) Dementia (Acute) Fever (Acute) HLD (hyperlipidemia) (Acute) HTN (hypertension) (Acute) Influenza (Acute) Pneumonia (Acute) Streptococcal bacteremia (Acute) Condition: Poor - Instructions Referrals: Kassandra Urias [Primary Care Provider] - Disposition: TRANSFER ACUTE CARE/OTHER HOSP - Home Medications Comprehensive Discharge Medication List: Ambulatory Orders Amlodipine Besylate 5 mg PO 11/25/17 Ascorbic Acid [Vitamin C -] 500 mg PO DAILY 11/25/17 Atorvastatin Ca [Lipitor] 40 mg PO HS 11/25/17 Cholecalciferol (Vitamin D3) [Vitamin D3] 50,000 unit PO DAILY 11/25/17 Citalopram Hydrobromide [Citalopram HBr] 10 mg PO DAILY 11/25/17 Clonidine HCl 0.3 mg PO HS 11/25/17 Hydralazine HCl 25 mg PO TID 11/25/17 Losartan Potassium 50 mg PO DAILY 11/25/17 Metoprolol Succinate [Toprol Xl] 100 mg PO DAILY 11/25/17 Nystatin Powder [Nystop Topical Powder -] 30 gm TP DAILY PRN 11/25/17 Olanzapine 5 mg PO DAILY 11/25/17 Oseltamivir Phosphate 30 mg PO DAILY MDD 14 days 11/25/17 Polyethylene Glycol 3350 [Laxaclear] 1,700 gm PO DAILY 11/25/17 Terazosin HCl 5 mg PO HS 11/25/17
--- NOTE | 2017-12-05 11:18 | PN ---
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, Physician History of Present Illness: Pt in no distress For discharge to [facility] - Current Medication List Current Medications: Active Medications Acetaminophen (Ofirmev Injection -) 1,000 mg IVPB Q6H PRN PRN Reason: FEVER Last Admin: 12/04/17 13:47 Dose: 1,000 mg Docusate Sodium (Colace -) 100 mg PO BID [facility] Last Admin: 12/05/17 09:49 Dose: Not Given Hydralazine HCl (Apresoline Injection -) 10 mg IVPUSH Q4H PRN PRN Reason: FOR SBP>150 Last Admin: 12/05/17 09:48 Dose: 10 mg Piperacillin Sod/Tazobactam (Sod 2.25 gm/ Dextrose) 50 mls @ 100 mls/hr IVPB Q6H-IV SHAY PRN Reason: Protocol Last Admin: 12/05/17 09:41 Dose: 100 mls/hr Potassium Chloride 10 meq/ (Dextrose) 1,005 mls @ 83.75 mls/hr IVPB Q12H [facility] Last Admin: 12/05/17 05:30 Dose: Not Given Insulin Aspart (Novolog Vial Sliding Scale -) 1 vial SQ ACHS SHAY PRN Reason: Protocol Last Admin: 12/05/17 06:13 Dose: 4 units Metoprolol Tartrate (Lopressor -) 100 mg PO BID [facility] Last Admin: 12/05/17 09:49 Dose: Not Given Metoprolol Tartrate (Lopressor Injection -) 5 mg IVPUSH Q4H PRN PRN Reason: TACHYCARDIA Last Admin: 12/01/17 12:46 Dose: 5 mg Polyethylene Glycol (Miralax (For Daily Use) -) 17 gm PO DAILY [facility] Last Admin: 12/05/17 09:49 Dose: Not Given - Objective Vital Signs: Vital Signs Temperature 97.8 F 12/05/17 08:00 Pulse Rate 81 12/05/17 10:00 Respiratory Rate 20 12/05/17 10:00 Blood Pressure 158/72 12/05/17 10:00 O2 Sat by Pulse Oximetry (%) 99 12/05/17 10:00 Constitutional: Yes: No Distress Cardiovascular: Yes: S1, S2 Respiratory: Yes: Rhonchi Gastrointestinal: Yes: Soft. No: Tenderness, Rebound Edema: LUE: Trace, RUE: Trace, LLE: Trace, RLE: Trace Labs: CBC, BMP 12/03/17 12:21 12/05/17 05:10 INR, PTT INR 1.03 (0.82-1.09) 11/25/17 17:24 Assessment/Plan Impression 1. hypernatremia 2. a-fib 3. CKD 4. dementia 5. HTN 6. BPH Plan Encourage PO intake Replace K Palliative care as per family wishes Since pt being discharged to [facility] Discussed with PMD Dr Patton
[2017-12-05 14:40] VITALS: BP 151/68; PULSE 82
== END 2017-12-05 17:31 | disposition hospice, inpatient (51) | DRG 871 ==
LOC: JER 16:46 → JERBED 19:17 → J5S 21:34 → J4S 11-26 03:27 → JICU 11-27 21:15 → J2W 12-01 04:55 → J4W 12-04 19:32
PROVIDERS: ADMIT Family Medicine; ATTEND Family Medicine
PROC: 5A12012 Performance of Cardiac Output, Single, Manual (ICD-10-PCS; principal; 2017-11-26)
PROC: 5A09457 Assistance with Respiratory Ventilation, 24-96 Consecutive Hours, Continuous Positive Airway Pressure (ICD-10-PCS; 2017-11-26)
DX: A41.9 Sepsis, unspecified organism (principal); J96.00 Acute respiratory failure, unspecified whether with hypoxia or hypercapnia; J09.X1 Influenza due to identified novel influenza A virus with pneumonia; G93.41 Metabolic encephalopathy; I24.8 Other forms of acute ischemic heart disease; T83.83XA Hemorrhage due to genitourinary prosthetic devices, implants and grafts, initial encounter; N17.9 Acute kidney failure, unspecified; E87.0 Hyperosmolality and hypernatremia; I12.9 Hypertensive chronic kidney disease with stage 1 through stage 4 chronic kidney disease, or unspecified chronic kidney disease; N18.3 Chronic kidney disease, stage 3 (moderate); E78.00 Pure hypercholesterolemia, unspecified; E86.0 Dehydration; Z66 Do not resuscitate; Y84.6 Urinary catheterization as the cause of abnormal reaction of the patient, or of later complication, without mention of misadventure at the time of the procedure; N40.0 Benign prostatic hyperplasia without lower urinary tract symptoms; F03.90 Unspecified dementia, unspecified severity, without behavioral disturbance, psychotic disturbance, mood disturbance, and anxiety; D64.9 Anemia, unspecified; J20.9 Acute bronchitis, unspecified; E87.6 Hypokalemia; Z91.81 History of falling; I48.0 Paroxysmal atrial fibrillation
CPT/HCPCS: 36415; 36600; 71045-TC-FY; 76700-TC; 76775-TC; 76856-TC; 80048; 80053; 81003; 81015; 82272; 82803; 82947; 82962; 83605; 83735; 83930; 84100; 84484; 85025; 85027; 85610; 85730; 87040; 87086; 87186; 87633; 87804; 93005; 93010; 93306-TC; 94640; 94660; 97161-GP; 99282-25; G0480; J0131; J7030